=== PATIENT | male | born 1940 | race Caucasian/White ===

== ENCOUNTER → 2016-09-07 | Outpatient (CLI) | payer MEDICARE ==
[~2016-09-07] MED LIST: /MELO7TA PO; ASTE137S; AVAP300T PO; CALC600T7 PO; FERR325T3 PO; FISH1000 PO; INDA2.5T PO; LEVO500T PO; LORTTAB5 PO; METR500T10 PO; MULTCAP PO; OMEP40CA2 PO; ROPI0.25 PO; TRAZ50TA2 PO; TYLE325T5 PO; VITA100087 PO; VITA250L PO; VITA500C24 PO; VITAD1000T PO; ZOCO20TA PO; [UNRECOGNIZED DRUG - CODE] PO
--- NOTE | 2016-09-07 17:01 | REP ---
CERVICAL SPINE, EIGHT VIEWS: HISTORY: Spondylosis. There is no acute fracture or subluxation. The C3-4 through C6-7 intervertebral discs are decreased in height consistent with disc degeneration. Osteophytes are present on C3 through 7. There is narrowing of the C3 through 6 neural foraminal secondary to uncinate process hypertrophy. IMPRESSION: Degenerative change as described above. Signed by Carson Chaparro MD 09/07/2016 05:04 P
--- NOTE | 2016-09-07 17:35 | REP ---
LUMBAR SPINE, SEVEN VIEWS: HISTORY: Spondylosis. There is no acute fracture or subluxation. The lumbar intervertebral discs are decreased in height consistent with disc degeneration. Osteophytes are present throughout the lumbar spine. There is narrowing of the L4-5 and L5-S1 facet joints. IMPRESSION: Degenerative change as described above. Signed by Carson Chaparro MD 09/08/2016 08:47 A
== END ==
LOC: M RAD 15:43
PROVIDERS: ATTEND Neurological Surgery
DX: M50.30 Other cervical disc degeneration, unspecified cervical region (principal); M51.36 Other intervertebral disc degeneration, lumbar region; M47.892 Other spondylosis, cervical region; M47.816 Spondylosis without myelopathy or radiculopathy, lumbar region; M54.81 Occipital neuralgia; G56.20 Lesion of ulnar nerve, unspecified upper limb; M46.1 Sacroiliitis, not elsewhere classified; E66.9 Obesity, unspecified

== ENCOUNTER → 2016-09-14 | Outpatient (CLI) | payer MEDICARE ==
[2016-09-14 10:39] LABS: BLOOD UREA NITROGEN 12 MG/DL (7-18); CREATININE FOR GFR 0.96 MG/DL (0.70-1.30); GLOMERULAR FILTRATION RATE > 60.0 (>42)
== END ==
LOC: M LAB 09:46
PROVIDERS: ATTEND Neurological Surgery
DX: Z01.812 Encounter for preprocedural laboratory examination (principal)

== ENCOUNTER → 2016-09-16 | Outpatient (CLI) | payer MEDICARE ==
[~2016-09-16] MED LIST changes: +GASTROGRAFIN SOLUTION 30ML (Q9963) As Ordered ONE; +ISOVUE-370 76% 100ML VIAL (Q9967) As Ordered ONE
--- NOTE | 2016-09-16 13:30 | REP ---
CT ABDOMEN AND PELVIS WITH AND WITHOUT CONTRAST: TECHNIQUE: Axial noncontrast images through the abdomen followed by contrast-enhanced images through the abdomen and pelvis using 100 mL Isovue 370 intravenous contrast material, with coronal and sagittal reformations. There is fibrotic change with the visualized lung bases as well as a stable 7 mm nodular opacity in the left lower lobe compared to the prior CT of 10/14/2012. Liver demonstrates a subcentimeter hypodense nodule in the right lobe which is unchanged. Patient has had a cholecystectomy. There is no biliary dilatation. However, in the distal end of the common bile duct, there appear to be a few tiny calcific densities in the dependent portion probably representing tiny stones. Spleen, adrenals and pancreas, as well as kidneys are otherwise unremarkable. No renal calculi or ureteral calculi are seen. There is no hydroureteronephrosis. There is no evidence of bladder calculus. There are moderate atherosclerotic calcifications of the abdominal aorta without aneurysm. There is no adenopathy. There is no free air or free fluid. There is no bowel wall thickening. There is no evidence of appendicitis. There is extensive diverticulosis of the left colon and sigmoid colon without acute diverticulitis. There is no pelvic mass. There is a small left inguinal hernia containing fat. There are degenerative changes of the spine. IMPRESSION: Status post cholecystectomy. There are a tiny calcific densities in the dependent portion of the distal common bile duct compatible with tiny stones. Extensive sigmoid and left colonic diverticulosis. No acute abdominal or pelvic abnormality is identified. Small left inguinal hernia containing fat. Signed by Nixon Jesus MD 09/17/2016 04:37 P
== END ==
LOC: M RAD 10:39
PROVIDERS: ATTEND Neurological Surgery
DX: K80.50 Calculus of bile duct without cholangitis or cholecystitis without obstruction (principal); K57.30 Diverticulosis of large intestine without perforation or abscess without bleeding; K40.90 Unilateral inguinal hernia, without obstruction or gangrene, not specified as recurrent; Z90.49 Acquired absence of other specified parts of digestive tract
CPT/HCPCS: 74178; Q9963; Q9967

== ENCOUNTER → 2016-09-24 | Outpatient (CLI) | payer MEDICARE ==
[~2016-09-24] MED LIST changes: -GASTROGRAFIN SOLUTION 30ML (Q9963) As Ordered ONE; -ISOVUE-370 76% 100ML VIAL (Q9967) As Ordered ONE
== END ==
LOC: M SMT 07:59
PROVIDERS: ATTEND Urology
DX: Z12.5 Encounter for screening for malignant neoplasm of prostate (principal); Z80.42 Family history of malignant neoplasm of prostate
CPT/HCPCS: 36415; G0103

== ENCOUNTER → 2016-10-01 | Outpatient (REF) | payer MEDICARE | LOC: M SMT 13:02 | PROVIDERS: ATTEND Urology | DX: R39.15 Urgency of urination (principal) | CPT/HCPCS: 51798; 87086; G0463 ==

== ENCOUNTER → 2016-10-03 | Outpatient (CLI) | payer MEDICARE ==
--- NOTE | 2016-10-03 16:17 | REP ---
Clinical: Fatigue. Technique: PA and lateral. Comparison: 03/28/2013. Findings: Mediastinum and cardiac silhouette are within normal limits. Lung mckenzie demonstrate chronic changes with mild linear left basilar fibroatelectatic change. No effusion or pneumothorax. Skeletal structures demonstrate age-related degenerative changes. Impression: Chronic-appearing changes including suspected chronic linear fibroatelectatic change in the left base. Signed by Tano Paris MD 10/03/2016 04:08 P
[2016-10-03 20:28] LABS: BASO % 0.5 % (0.0-1.0); EOS # 0.2 K/mm3 (0.0-0.50); EOS % 3.1 % (0.0-3.0); LARGE UNSTAINED CELL # 0.1 K/mm3 (0.0-0.4); LARGE UNSTAINED CELL % 1.9 % (0.0-4.0); LYMPH % 40.3 % (24.0-44.0); MEAN CORPUSCULAR HEMOGLOBIN 30.8 pg (27.0-33.0); MEAN CORPUSCULAR HGB CONC 32.5 g/dl (32.0-36.5); MEAN CORPUSCULAR VOLUME 94.8 fl (80.0-96.0); MONO # 0.3 K/mm3 (0.0-0.8); MONO % 7.1 % (0.0-5.0); NEUTROPHILS # 2.3 K/mm3 (1.8-7.7); PLATELET COUNT, AUTOMATED 249 k/mm3 (150-450); RED CELL DISTRIBUTION WIDTH 12.8 % (11.5-14.5); WHITE BLOOD COUNT 4.8 K/mm3 (4.0-10.0)
[2016-10-03 20:39] LABS: ALBUMIN/GLOBULIN RATIO 1.18 (1.00-1.93); ALKALINE PHOSPHATASE 65 U/L (45-117); ALT/SGPT 45 U/L (12-78); ANION GAP 10 MEQ/L (8-16); AST/SGOT 30 U/L (15-37); BILIRUBIN,TOTAL 0.3 MG/DL (0.2-1.0); BLOOD UREA NITROGEN 14 MG/DL (7-18); CALCIUM LEVEL 8.6 MG/DL (8.8-10.2); CARBON DIOXIDE LEVEL 30 MEQ/L (21-32); CHLORIDE LEVEL 95 MEQ/L (98-107); CREATININE FOR GFR 0.89 MG/DL (0.70-1.30); GLOMERULAR FILTRATION RATE > 60.0 (>42); GLUCOSE, FASTING 144 MG/DL (83-110); POTASSIUM SERUM 3.7 MEQ/L (3.5-5.1); SODIUM LEVEL 135 MEQ/L (136-145); TOTAL PROTEIN 7.4 GM/DL (6.4-8.2)
[2016-10-05 09:43] LABS: CONTROL LINE MONO RF C INT CTR LINE PRESENT
[2016-10-07 00:06] LABS: Lyme Disease IgG/IgM Antibodie <0.91 ISR (0.00-0.90); Lyme Disease IgM Ab Quantitati <0.80 index (0.00-0.79)
== END ==
LOC: M ADAMS 15:39
PROVIDERS: ATTEND Physician Assistant Medical
DX: R53.83 Other fatigue (principal)

== ENCOUNTER → 2016-10-22 | Outpatient (CLI) | payer MEDICARE ==
--- NOTE | 2016-11-06 01:07 | ECWPNPC ---
PATIENT NAME: CHRISSIE SANFORD : 1940 GENDER: MALE VISIT DATE: 10/22/2016 DISCHARGE DATE: 10/22/16 1431 VISIT LOCKED DATE TIME: PHYSICIAN: ARABELLA YBARRA PHYSICIAN PAGER NO: [phone] RESOURCE: ARABELLA YBARRA REASON FOR APPOINTMENT 1. BACK HISTORY OF PRESENT ILLNESS NEW PATIENT CONSULT: WHEN DID YOUR PAIN FIRST START? . BRIEFLY DESCRIBE HOW YOUR PAIN STARTED? . HOW DOES YOUR PAIN CHANGE WITH TIME? . DOES YOUR PAIN AWAKEN YOU FROM SLEEP? . HOW MANY HOURS OF SLEEP DO YOU NORMALLY GET? . ANY DIAGNOSTIC TESTING? . FACILITY WHERE TESTS WERE DONE? ____. PAIN TREATMENT TREATMENT YES CANCER HAVE YOU EVER HAD ANY TYPE OF CANCER?NO NO. 76 Y/O MALE REFERRED BY DR RUSSELL FOR CHRONIC NECK AND LOW BACK PAIN.PAIN BEGAN 35 YEARS AGO AFTER SPLITTING WOOD.TRIALED THERAPY ADMINISTRATIVE ASSISTANT WHICH AGGREVATED PAIN.REPORTS INTERMITTENT LEFT UPPER ARM PAIN.HAVING ODD COLD SENSATION IN BILATERAL LEGS PAST FOUR YEARS THAT HAS GOTTEN WORSE PAST 6 MONTHS.IS BEING REFERRED TO VASCULAR SURGEON.REPORTING POOR SLEEP DUE TO LOW BACK PAIN.RATING LOW BACK PAIN 6/10.PAIN AGGREVATED IN NECK WITH CERTAIN MOVEMENTS IN NECK.DENIES BOWEL OR BLADDER INCONTINENCE.NO RECENT FEVER ,ILLNESS OR WEIGHT LOSS. PAIN SCREENING: PATIENT HAS A COMPLAINT OF ACUTE OR CHRONIC PAIN :YES FALL RISK SCREENING: SCREENING :NO FALLS IN THE PAST YEAR ÁLVAREZ INVENTORY: QUESTIONNAIRE ASSESSEDTBD SCORE VALUE CALCULATED TBD CURRENT MEDICATIONS TAKING FERROUS SULFATE 325 (65 FE) MG TABLET 1 TABLET ORALLY ONCE A DAY TAKING FISH OIL 1000 MG OTC 1 CAPSULE ORALLY ONCE A DAY TAKING MULTIVITAMINS OTC TABLET 1 TAB ORALLY ONCE A DAY TAKING VITAMIN D 1000 UNIT OTC 1 TABLET ORALLY ONCE A DAY TAKING SELENIUM 200 MCG OTC 1 TAB ORALLY ONCE A DAY TAKING CALCIUM 600 + D 600-200 MG-UNIT OTC 1 TABLET ORALLY ONCE A DAY TAKING VITAMIN C 500 MG OTC 1 TABLET ORALLY ONCE A DAY TAKING VITAMIN A 8000 UNIT OTC 1 CAPSULE ORALLY ONCE A DAY TAKING VITAMIN B COMPLEX 500 MG OTC 1 TABLET ORALLY ONCE A DAY TAKING VITAMIN B 12 1000 MG TABLET 1 TAB(S) ORALLY DAILY TAKING ASPIR-81 81 MG TABLET DELAYED RELEASE 1 TABLET ORALLY ONCE A DAY TAKING ZOCOR 20 MG TABLET 1 TABLET EVERY EVENING ORALLY ONCE A DAY TAKING TRAZODONE 50 50MG TABLET 1 TABLET ORAL BEDTIME TAKING INDAPAMIDE 2.5 MG TABLET TAKE ONE TABLET BY MOUTH EVERY MORNING TAKING REQUIP 0.25 MG TABLET TAKE TWO TABLETS BY MOUTH 1-3 HOURS BEFORE BEDTIME TAKING OMEPRAZOLE 40 MG CAPSULE DELAYED RELEASE 1 CAPSULE ORALLY TWICE A DAY TAKING AVAPRO 300 MG TABLET TAKE ONE TABLET BY MOUTH EVERY DAY ORALLY ONCE A DAY TAKING MYRBETRIQ 50 MG TABLET EXTENDED RELEASE 24 HOUR 1 TABLET ORALLY ONCE A DAY TAKING OXYBUTYNIN CHLORIDE ER 10 MG TABLET EXTENDED RELEASE 24 HOUR 1 TABLET ORALLY ONCE A DAY TAKING MELOXICAM 7.5 MG TABLET TAKE ONE TABLET BY MOUTH TWICE A DAY NEEDED MAXIMUM DAILY DOSE = 2 TABLETS NOT-TAKING TRAZODONE HCL 50 MG TABLET TAKE ONE TABLET BY MOUTH AT BEDTIME MEDICATION LIST REVIEWED AND RECONCILED WITH THE PATIENT PAST MEDICAL HISTORY (FREQUENT BLOOD DONOR--HGB TYPICALLY SL LOW) TYPE 2 DM-- DIETARY CONTROL HYPERLIPIDEMIA FIBROMYALGIA--DISABLED ALLERGIES BPH GENERALIZED OA NEGATIVE CATH NO CAD; NORMAL STRESS ECHO 12/23 (EF 60%) HYPERTENSION PULMONARY FIBROSIS COLON POLYP ADENOMATOUS COLONSCOPY 05/13,05/16,10/17,11/17, DDD/C-SPINE XRAY 02/13; SOS/NYSW INJECTIONS 2014, 2015 MILD ANEMIA FROM Q 2 MONTH BLOOD DONATIONS BILATERAL SHOULDER TENDONITIS/ARTHIRITIS VENTRAL HERNIA ERECTILE DYSFUNCTION GERD/SCHATZKI'S RING DEPRESSION XEROSTOMIA (? FROM [facility]) RESTLESS LEG SYNDROME ZOEY ON CPAP PER PULMONARY HAD NCS DONE AT [place] [facility], NO RECORDS SENT ALLERGIES CYTOTEC: DIARRHEA: SIDE EFFECTS ATENOLOL: FATIGUE: SIDE EFFECTS VIAGARA: HEADACHES: SIDE EFFECTS SOCIAL HISTORY GENERAL: PAIN CLINIC PFS, CLERGY, PUBLIC HEALTH REFERRALS CLERGY REFERRAL NEEDED?NO WAS THE PROVIDER NOTIFIED OF ANY PERTINENT INFO?NO PFS REFERRAL NEEDED?NO PUBLIC HEALTH REFERRAL NEEDED?NO PATIENT: ____. REVIEW OF SYSTEMS CONSTITUTIONAL: RECENT ILLNESS DENIES . ANY CHANGE IN YOUR MEDICAL CONDITION? NO . CHILLS NO . FEVER NO, DENIES . WEIGHT LOSS DENIES . INFECTION: DO YOU HAVE NEW INFECTIONS? NO . DO YOU HAVE HISTORY OF MRSA? NO . MUSCULOSKELETAL: ANY NEW PATTERNS OF PAIN OR NUMBNESS? NO . SYTEMIC LUPUS NO . JOINT PAIN DENIES . JOINT STIFFNESS DENIES . GASTROENTEROLOGY: BOWEL INCONTINENCE DENIES . ANY NEW CHANGE IN BOWEL CONTROL? NO . BARRETTS ESOPHAGUS NO . CIRRHOSIS NO . HEPATITIS NO . LIVER FAILURE NO . ACID REFLUX NO . BLOOD IN STOOL DENIES . UNEXPLAINED WEIGHT LOSS NO . GENITOURINARY: ANY NEW CHANGE IN BLADDER CONTROL? NO . IS THERE A CHANCE YOU COULD BE ? NO . HEMATOLOGY/LYMPH: DENIES . BLEEDING DISORDER DENIES . DO YOU TAKE ANY BLOOD THINNERS? (FOR EXAMPLE- COUMADIN, PLAVIX, AGGRENOX, PLATEL, PRADAXA, OR XARELTO) NO . WHEN WAS YOUR LAST DOSE? DATE: TIME: . LOW PLATELET COUNT NO . SICKLE CELL DISEASE NO . VON WILLIEBRANDS NO . FACTOR V LEIDEN NO . THALLASEMIA NO . ANEMIA NO . EASY BRUISING NO . NEUROLOGY: HAVE YOU FALLEN IN THE PAST 6 MONTHS? NO . ANY NEW EXTREMITY NUMBNESS OR WEAKNESS? NO . HEAD INJURY NO . DEMENTIA NO . CEREBRAL PALSY NO . MULTIPLE SCLEROSIS NO . DIZZINESS NO . HEADACHE NO, DENIES . SEIZURES DENIES . STROKES NO . VERTIGO NO . CARDIOLOGY: DO YOU HAVE A PACEMAKER OR DEFIBRILLATOR? NO . ANGINA NO . HEART ATTACK NO . HEART SURGERY NO . CONGESTIVE HEART FAILURE/FLUID OVERLOAD NO . CHEST PAIN NO, DENIES . HIGH BLOOD PRESSURE NO . IRREGULAR HEART BEAT NO . SHORTNESS OF BREATH DENIES . RESPIRATORY: HAVE YOU BEEN SICK IN THE PAST WEEK? NO . FEVER NO . FLU LIKE SYMPTOMS? NO . CPAP NO . BYPAP NO . ASTHMA NO . EMPHYSEMA NO . CHRONIC LUNG DISEASES NO . SHORTNESS OF BREATH ON EXERTION NO . DO YOU USE ANY TYPE OF TOBACCO (SMOKE, SMOKELESS, CHEW)? NO . COUGH NO, DENIES . SHORTNESS OF BREATH DENIES . SNORING NO . INTEGUMENTARY: DO YOU HAVE ANY RASHES OR OPEN SORES? NO . ALLERGIC/IMMUNO: ARE YOU ALLERGIC TO SHELLFISH OR IV DYE? NO . ANY NEW ALLERGIES? NO . PSYCHIATRIC: DO YOU HAVE THOUGHTS OF HURTING YOURSELF OR SOMEONE ELSE? NO . ARE YOU ABUSED, NEGLECTED, OR IN AN UNSAFE ENVIRONMENT? NO . ENDOCRINOLOGY: THYROID DISEASE DENIES . ARE YOU DIABETIC? NO . DIABETES DENIES . THYROID DISORDER NO . OTHER: DO YOU NEED ANY PRESCRIPTIONS? NO . IF YES, PLEASE LIST: ____ . ANY NEW PROBLEMS WITH YOUR MEDICATIONS? NO . WHEN DID YOU LAST EAT? ____ . WHEN DID YOU LAST DRINK? ____ . WHAT DID YOU LAST DRINK? ____ . NAME OF PERSON DRIVING YOU HOME? ____ . DO YOU HAVE ANY OTHER QUESTIONS OR CONCERNS NO . HEENT: CHANGE IN VISION DENIES . LOSS OF HEARING DENIES . TROUBLE SWALLOWING DENIES . PSYCHOLOGY: ANXIETY DENIES . DEPRESSION DENIES . UROLOGY: URINARY INCONTINENCE DENIES . BLOOD IN URINE DENIES . REVIEWED BY: PROVIDER: ARABELLA PRICE . VITAL SIGNS WT 216 LBS, HT 69 IN, BMI 31.89 INDEX, BP 177/79 MM HG, HR 73 /MIN, RR 18 /MIN, TEMP 98.5 F, OXYGEN SAT % 97, NA INITIALS AW 1311. EXAMINATION GENERAL EXAMINATION: HEENT:HEAD:, NORMOCEPHALIC, EYES:, EYES NORMAL, NOSE:, NOSE CLEAR, THROAT: NORMAL. LUNGS:LUNG SOUNDS ARE CLEAR. HEART:HEART RATE REGULAR. ABDOMEN:SOFT AND NOT TENDER, NON-DISTENDED. MUSCULOSKELETAL:*. LUMBAR SACRAL SPINEMUSCLE STRENGTH TESTING 5/5 BILATERAL, PALPATION: NEGATIVE FOR PAIN OVER L/S SPINE. NEGATIVE FOR PAIN OVER L/S PARSPINALS. THORACIC SPINENEGATIVE FOR PAIN WITH PALPATION OF THORACIC SPINE. NEGATIVE FOR PAIN WITH PALPATION OF THORACIC PARASPINAL. CERVICALNEGATIVE FOR PAIN WITH PALPATION OF CERVICAL SPINE. POSITIVE FOR PAIN WITH PALPATION OF CERVICAL FACETS BILATERALLY. NEGATIVE FOR PAIN WITH PALPATION OF TRAPEZIUS BILAT.. SKIN:NORMAL, NO RASH. NEUROLOGIC EXAM:ALERT AND ORIENTED X 3, DTRS 1-2+ IN ALL 4 EXTREMITIES, DENIES UPPER EXTREMETIES SENSORY LOSS, DENIES LOWER EXTREMETIES SENSORY LOSS. DIAGNOSTIC:MRI L/S AND [id number]. 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 OTHERS CLINICAL NOTES: ISTOP REGISTRY REVIEWED. PROCEDURE CODES FA211 ESTABILISHED PATIENT [facility] CHARGE G8730 PAIN ASSESS POS TOOL F/U PLAN DOC G8427 DOC MEDS VERIFIED W/PT OR RE DISPOSITION & COMMUNICATION FOLLOW UP 2WK POST (REASON: BILAT. C4/5-C5/6 THERAPEUTIC FACET BLOCK) ELECTRONICALLY SIGNED BY DEE MEDRANO ON 11/05/2016 AT 01:08 PM EDT DISCLAIMER : THIS IS A VISIT SUMMARY EXTRACTED FROM THE [facility] CHART. IT IS NOT A COPY OF THE [facility] PROGRESS NOTE. MTDD
== END ==
LOC: M PAIN 13:20
PROVIDERS: ATTEND Nurse Practitioner Family
DX: G89.29 Other chronic pain (principal); M43.02 Spondylolysis, cervical region; M48.06 Spinal stenosis, lumbar region; E11.9 Type 2 diabetes mellitus without complications; E78.5 Hyperlipidemia, unspecified; M79.7 Fibromyalgia; M15.0 Primary generalized (osteo)arthritis; I10 Essential (primary) hypertension; K21.9 Gastro-esophageal reflux disease without esophagitis; F32.9 Major depressive disorder, single episode, unspecified; G25.81 Restless legs syndrome; G47.33 Obstructive sleep apnea (adult) (pediatric); Z88.8 Allergy status to other drugs, medicaments and biological substances; Z79.82 Long term (current) use of aspirin; Z79.899 Other long term (current) drug therapy

== ENCOUNTER → 2016-10-29 | Outpatient (REF) | payer MEDICARE ==
[2016-10-29 13:01] LABS: ANION GAP 8 MEQ/L (8-16); BLOOD UREA NITROGEN 18 MG/DL (7-18); CALCIUM LEVEL 9.5 MG/DL (8.8-10.2); CARBON DIOXIDE LEVEL 32 MEQ/L (21-32); CHLORIDE LEVEL 98 MEQ/L (98-107); CREATININE FOR GFR 0.89 MG/DL (0.70-1.30); GLOMERULAR FILTRATION RATE > 60.0 (>42); GLUCOSE, FASTING 113 MG/DL (83-110); SODIUM LEVEL 138 MEQ/L (136-145)
== END ==
LOC: M SFHCADAM 07:59
PROVIDERS: ATTEND Family Medicine
DX: E11.9 Type 2 diabetes mellitus without complications (principal)

== ENCOUNTER → 2016-11-11 | Outpatient (CLI) | payer MEDICARE ==
[~2016-11-11] MED LIST changes: +BUPIVACAINE HCL 0.25% 30 ML VIAL As Ordered ONE; +ISOVUE-M 300 61% 15ML VIAL (Q9967) As Ordered ONE; +LIDOCAINE 1% SDV INJ 30 ML VIAL As Ordered ONE; +TRIAMCINOLONE ACETONIDE SUSP 40 MG/ML VIAL (J3301) As Ordered ONE; +diazePAM 5 MG TAB As Ordered ONE; +oxyCODONE 5MG TAB As Ordered ONE
--- NOTE | 2016-11-11 15:42 | REP ---
FACET BLOCK: The images were reviewed with Dr. Jesus. The patient has a history of neck pain. The portable C-arm was provided in the OR for Dr. Rojas for fluoroscopy guidance. One intraoperative fluoroscopic spot film was obtained for needle placement verification for bilateral cervical facet injection. The film is on the PACs system and is available for review. 9 seconds of fluoroscopic time was utilized for this procedure. Reviewed by JANUARY Medellin 11/11/2016 04:16 PEdited and Signed by Nixon Jesus MD 11/11/2016 04:42 P
--- NOTE | 2016-11-15 23:55 | ECWPNPC ---
PATIENT NAME: CHRISSIE SANFORD : 1940 GENDER: MALE VISIT DATE: 11/11/2016 DISCHARGE DATE: 11/11/16 1105 VISIT LOCKED DATE TIME: PHYSICIAN: CONSTANTINE YANCEY PHYSICIAN PAGER NO: [phone] RESOURCE: CONSTANTINE YANCEY REASON FOR APPOINTMENT 1. THERAPEUTIC FACET HISTORY OF PRESENT ILLNESS HISTORY OF PRESENT ILLNESS: PAIN THE PATIENT DESCRIBES THE PAIN... FALL RISK SCREENING: SCREENING :NO FALLS IN THE PAST YEAR CURRENT MEDICATIONS TAKING FERROUS SULFATE 325 (65 FE) MG TABLET 1 TABLET ORALLY ONCE A DAY, NOTES: 11/10/16699 TAKING FISH OIL 1000 MG OTC 1 CAPSULE ORALLY ONCE A DAY, NOTES: 11/10/16699 TAKING MULTIVITAMINS OTC TABLET 1 TAB ORALLY ONCE A DAY, NOTES: 11/10/16699 TAKING VITAMIN D 1000 UNIT OTC 1 TABLET ORALLY ONCE A DAY, NOTES: 11/10/161699 TAKING SELENIUM 200 MCG OTC 1 TAB ORALLY ONCE A DAY, NOTES: 11/10/161199 TAKING CALCIUM 600 + D 600-200 MG-UNIT OTC 1 TABLET ORALLY ONCE A DAY, NOTES: 11/10/16699 TAKING VITAMIN C 500 MG OTC 1 TABLET ORALLY ONCE A DAY, NOTES: 11/10/16699 TAKING VITAMIN A 8000 UNIT OTC 1 CAPSULE ORALLY ONCE A DAY, NOTES: 11/10/161199 TAKING VITAMIN B COMPLEX 500 MG OTC 1 TABLET ORALLY ONCE A DAY, NOTES: 11/10/161199 TAKING VITAMIN B 12 1000 MG TABLET 1 TAB(S) ORALLY DAILY, NOTES: 11/10/161199 TAKING ASPIR-81 81 MG TABLET DELAYED RELEASE 1 TABLET ORALLY ONCE A DAY, NOTES: 11/10/16799 TAKING ZOCOR 20 MG TABLET 1 TABLET EVERY EVENING ORALLY ONCE A DAY, NOTES: 11/10/16799 TAKING REQUIP 0.25 MG TABLET TAKE TWO TABLETS BY MOUTH 1-3 HOURS BEFORE BEDTIME , NOTES: 11/10/161999 TAKING MYRBETRIQ 50 MG TABLET EXTENDED RELEASE 24 HOUR 1 TABLET ORALLY ONCE A DAY, NOTES: 11/10/161699 TAKING OMEPRAZOLE 40 MG CAPSULE DELAYED RELEASE 1 CAPSULE ORALLY TWICE A DAY, NOTES: 11/10/161999 TAKING AVAPRO 300 MG TABLET TAKE ONE TABLET BY MOUTH EVERY DAY ORALLY ONCE A DAY, NOTES: 5/2/17 1700 TAKING INDAPAMIDE 2.5 MG TABLET TAKE ONE TABLET BY MOUTH EVERY MORNING , NOTES: 11/10/16 1200 TAKING MELOXICAM 7.5 MG TABLET TAKE ONE TABLET BY MOUTH TWICE A DAY NEEDED MAXIMUM DAILY DOSE = 2 TABLETS , NOTES: 11/10/16 2000 TAKING OXYBUTYNIN CHLORIDE ER 10 MG TABLET EXTENDED RELEASE 24 HOUR 1 TABLET ORALLY ONCE A DAY, NOTES: 11/10/16 1700 TAKING TRAZODONE 50 50MG TABLET 1 TABLET ORAL BEDTIME, NOTES: 11/10/16 1900 NOT-TAKING TRAZODONE HCL 50 MG TABLET TAKE ONE TABLET BY MOUTH AT BEDTIME MEDICATION LIST REVIEWED AND RECONCILED WITH THE PATIENT PAST MEDICAL HISTORY TYPE 2 DM-- DIETARY CONTROL HYPERLIPIDEMIA FIBROMYALGIA--DISABLED ALLERGIES BPH GENERALIZED OA NEGATIVE CATH NO CAD; NORMAL STRESS ECHO 12/23 (EF 60%) HYPERTENSION PULMONARY FIBROSIS COLON POLYP ADENOMATOUS COLONSCOPY 05/13,05/16,10/17,11/17, DDD/C-SPINE XRAY 02/13; HAD MRIS DONE AT [facility] (NO [facility]), DX WITH CERVICAL AND LUMBAR SPONDYLOSIS; SOS/NYSW INJECTIONS 2014, 2016; [facility] 2016 MILD ANEMIA FROM Q 2 MONTH BLOOD DONATIONS BILATERAL SHOULDER TENDONITIS/ARTHIRITIS VENTRAL HERNIA ERECTILE DYSFUNCTION GERD/SCHATZKI'S RING DEPRESSION XEROSTOMIA (? FROM [facility]) RESTLESS LEG SYNDROME ZOEY ON CPAP PER PULMONARY HAD NCS DONE AT [facility], NO RECORDS SENT VASC SX EVALUATION 04/26 DR SHULTZ--NORMAL LOWER EXT CIRCULATION ALLERGIES N.K.D.A. REVIEW OF SYSTEMS CONSTITUTIONAL: ANY CHANGE IN YOUR MEDICAL CONDITION? NO . CHILLS NO . FEVER NO . INFECTION: DO YOU HAVE NEW INFECTIONS? NO . DO YOU HAVE HISTORY OF MRSA? NO . MUSCULOSKELETAL: ANY NEW PATTERNS OF PAIN OR NUMBNESS? NO . GASTROENTEROLOGY: ANY NEW CHANGE IN BOWEL CONTROL? NO . GENITOURINARY: ANY NEW CHANGE IN BLADDER CONTROL? NO . IS THERE A CHANCE YOU COULD BE ? NO . HEMATOLOGY/LYMPH: DO YOU TAKE ANY BLOOD THINNERS? (FOR EXAMPLE- COUMADIN, PLAVIX, AGGRENOX, PLATEL, PRADAXA, OR XARELTO) NO . WHEN WAS YOUR LAST DOSE? DATE: TIME: . NEUROLOGY: HAVE YOU FALLEN IN THE PAST 6 MONTHS? NO . ANY NEW EXTREMITY NUMBNESS OR WEAKNESS? NO . CARDIOLOGY: DO YOU HAVE A PACEMAKER OR DEFIBRILLATOR? NO . RESPIRATORY: HAVE YOU BEEN SICK IN THE PAST WEEK? NO . FEVER NO . FLU LIKE SYMPTOMS? NO . COUGH NO . INTEGUMENTARY: DO YOU HAVE ANY RASHES OR OPEN SORES? NO . ALLERGIC/IMMUNO: ARE YOU ALLERGIC TO SHELLFISH OR IV DYE? NO . ANY NEW ALLERGIES? NO . PSYCHIATRIC: DO YOU HAVE THOUGHTS OF HURTING YOURSELF OR SOMEONE ELSE? NO . ARE YOU ABUSED, NEGLECTED, OR IN AN UNSAFE ENVIRONMENT? NO . ENDOCRINOLOGY: ARE YOU DIABETIC? DIET CONTROLLED . OTHER: DO YOU NEED ANY PRESCRIPTIONS? NO . IF YES, PLEASE LIST: ____ . ANY NEW PROBLEMS WITH YOUR MEDICATIONS? NO . WHEN DID YOU LAST EAT? 11/10/16 1730 . WHEN DID YOU LAST DRINK? 11/10/16 1900 . WHAT DID YOU LAST DRINK? WATER . NAME OF PERSON DRIVING YOU HOME? -DEANNA . DO YOU HAVE ANY OTHER QUESTIONS OR CONCERNS NO . REVIEWED BY: PROVIDER: . VITAL SIGNS WT 210 LBS, HT 69 IN, BMI 31.01 INDEX, BP 166/72 MM HG, HR 67 /MIN, RR 18 /MIN, TEMP 97.5 F, OXYGEN SAT % 98, NA INITIALS AW 0850, REVIEWED BY: AD. ASSESSMENTS SPONDYLOSIS WITHOUT MYELOPATHY OR RADICULOPATHY, CERVICAL REGION - M47.812 (PRIMARY) PROCEDURES PN CERVICAL FACET BLOCK LOW BILATERAL CERVICAL PRE PROCEDURE DIAGNOSIS CERVICAL SPONDYLOSIS POST PROCEDURE DIAGNOSIS CERVICAL SPONDYLOSIS PROCEDURE BILATERAL C4-C5 AND BILATERAL C5-C6 CERVICAL FACET BLOCK SURGEON DR. CONSTANTINE YANCEY REGISTERED ASSOCIATE NONE ANESTHESIA LOCAL PRE PROCEDURE NOTE THE PATIENT HAS HISTORY OF CHRONIC CERVICAL PAIN. I EVALUATE THE PATIENT AND REVIEWED THE CHART. I WENT OVER THE RISKS, ALTERNATIVES, AND BENEFITS ASSOCIATED WITH THIS PROCEDURE. THE PATIENT WOULD LIKE TO PROCEED AND GIVE CONSENT TO PERFORMED THE PROCEDURE. THE PATIENT DENIES UNEXPLAINABLE WEIGHT LOSS, FEVER, CHILLS, OR NEW CHANGES IN URINARY OR BOWEL CONTROL. DESCRIPTION OF PROCEDURE THE PATIENT WAS BROUGHT TO THE PROCEDURE ROOM AND PLACED IN THE PRONE POSITION. THE CERVICOTHORACIC AREA WAS CLEANED WITH CHLORAPREP SOLUTION AND DRAPED ASEPTICALLY. THE PROCEDURE WAS DONE UNDER STERILE CONDITIONS. I CHECKED LATERALITY AND THE LEVEL WHERE THE PROCEDURE WAS GOING TO BE PERFORMED WITH THE PATIENT AND THE SUPPORTING STAFF AT THE MOMENT OF THE TIME OUT IN THE PROCEDURE ROOM. UNDER FLUOROSCOPIC GUIDANCE, TARGET POINT WAS SELECTED AT THE RIGHT AND EFT C4-C5 AND RIGHT AND LEFT C5-C6 CERVICAL FACET JOINT. TARGET POINTS WERE SELECTED AFTER LATERAL ROTATION AND TILT OF THE MAGNIFIER OF THE C-ARM. LIDOCAINE 0.5% WAS USED TO NUMB THE SKIN AND THE SUBCUTANEOUS TISSUE BELOW IT. SPINAL NEEDLES, 22-GAUGE, WERE ADVANCED UNDER FLUOROSCOPIC GUIDANCE AND FOLLOWING PATIENT FEEDBACK UNTIL THE TARGETS WERE TOUCHED. THE POSITION OF THE NEEDLES WAS VERIFIED WITH AP AND LATERAL VIEWS. AFTER PROPER POSITION OF THE NEEDLES WAS ACHIEVED, ISOVUE M DYE 30, 0.1 ML WAS INJECTED SHOWING SPREAD OF THE DYE. THEN A SOLUTION OF 0.9 ML OF BUPIVACAINE 0.125% AND KENALOG 10 MG WAS INJECTED AT EACH SITE. THERE WAS NO EVIDENCE OF BLOOD, PARESTHESIA OR CEREBROSPINAL FLUID DURING THE PROCEDURE. THE PATIENT WAS SENT TO THE RECOVERY ROOM. THE PATIENT WAS MOVING THE EXTREMITIES AND DOING WELL. THERE WAS NO COMPLICATION DURING THE PROCEDURE. FLUOROSCOPY TIME WAS 9 SECONDS POST PROCEDURE NOTE THE PATIENT WILL BE SEEN IN A FOLLOW UP IN THE NEXT FEW WEEKS. INSTRUCTIONS WERE GIVEN, QUESTIONS WERE ANSWERED, AND THE PATIENT EXPRESSED UNDERSTANDING AND AGREES WITH THE PLAN. I, JAZMIN ANDRADE, DOCUMENTED THE ABOVE INFORMATION ACTING A SCRIBE FOR DR. YANCEY. I HAVE REVIEWED THE ABOVE DOCUMENT, WRITTEN BY JAZMIN ESQUIVEL AND I VERIFY THAT IT IS ACCURATE DIAGNOSTIC IMAGING [facility] FACET BLOCK (PAIN)[id number] PROCEDURE CODES 82151 INJ PARAVERT F JNT C/T 1 LEV 80169 INJ PARAVERT F JNT C/T 2 LEV 6045F RADXPS IN END [id number] PXD DISPOSITION & COMMUNICATION FOLLOW UP 3 WEEKS ELECTRONICALLY SIGNED BY CONSTANTINE YANCEY MD ON 11/15/2016 AT 04:58 PM EDT DISCLAIMER : THIS IS A VISIT SUMMARY EXTRACTED FROM THE [employer] CHART. IT IS NOT A COPY OF THE [employer] PROGRESS NOTE. MTDD
== END ==
LOC: M PAIN 08:40
PROVIDERS: ATTEND Anesthesiology
DX: G89.29 Other chronic pain (principal); M47.812 Spondylosis without myelopathy or radiculopathy, cervical region; E11.9 Type 2 diabetes mellitus without complications; E78.5 Hyperlipidemia, unspecified; M79.7 Fibromyalgia; M15.0 Primary generalized (osteo)arthritis; I10 Essential (primary) hypertension; J84.10 Pulmonary fibrosis, unspecified; K43.9 Ventral hernia without obstruction or gangrene; K21.9 Gastro-esophageal reflux disease without esophagitis; F32.9 Major depressive disorder, single episode, unspecified; G25.81 Restless legs syndrome; G47.33 Obstructive sleep apnea (adult) (pediatric); Z79.82 Long term (current) use of aspirin; Z79.891 Long term (current) use of opiate analgesic; Z79.899 Other long term (current) drug therapy
CPT/HCPCS: 64490; 64491; J3301; Q9967

== ENCOUNTER → 2016-11-25 | Outpatient (CLI) | payer MEDICARE ==
[~2016-11-25] MED LIST changes: -BUPIVACAINE HCL 0.25% 30 ML VIAL As Ordered ONE; -ISOVUE-M 300 61% 15ML VIAL (Q9967) As Ordered ONE; -LIDOCAINE 1% SDV INJ 30 ML VIAL As Ordered ONE; -TRIAMCINOLONE ACETONIDE SUSP 40 MG/ML VIAL (J3301) As Ordered ONE; -diazePAM 5 MG TAB As Ordered ONE; -oxyCODONE 5MG TAB As Ordered ONE
--- NOTE | 2016-12-16 02:55 | ECWPNPC ---
PATIENT NAME: CHRISSIE SANFORD : 1940 GENDER: MALE VISIT DATE: 11/25/2016 DISCHARGE DATE: 11/25/16 1001 VISIT LOCKED DATE TIME: PHYSICIAN: ARABELLA YBARRA PHYSICIAN PAGER NO: [phone] RESOURCE: ARABELLA YBARRA HISTORY OF PRESENT ILLNESS HISTORY OF PRESENT ILLNESS: HERE FOR POST PROCEDURE FOLLOW UP.HAD BILATERAL CERVICAL THERAPEUTIC FACET BLOCK ON 11-11-16.REPORTING >75% IMPROVEMENT IN PAIN THAT CONTINUES TODAY.RATING NECK PAIN 0/10.CHIEF AREA OF PAIN IS LOW BACK. PAIN THE PATIENT DESCRIBES THE PAIN... FALL RISK SCREENING: SCREENING :NO FALLS IN THE PAST YEAR CURRENT MEDICATIONS TAKING FERROUS SULFATE 325 (65 FE) MG TABLET 1 TABLET ORALLY ONCE A DAY TAKING FISH OIL 1000 MG OTC 1 CAPSULE ORALLY ONCE A DAY TAKING MULTIVITAMINS OTC TABLET 1 TAB ORALLY ONCE A DAY TAKING VITAMIN D 1000 UNIT OTC 1 TABLET ORALLY ONCE A DAY TAKING SELENIUM 200 MCG OTC 1 TAB ORALLY ONCE A DAY TAKING CALCIUM 600 + D 600-200 MG-UNIT OTC 1 TABLET ORALLY ONCE A DAY TAKING VITAMIN C 500 MG OTC 1 TABLET ORALLY ONCE A DAY TAKING VITAMIN A 8000 UNIT OTC 1 CAPSULE ORALLY ONCE A DAY TAKING VITAMIN B COMPLEX 500 MG OTC 1 TABLET ORALLY ONCE A DAY TAKING VITAMIN B 12 1000 MG TABLET 1 TAB(S) ORALLY DAILY TAKING ASPIR-81 81 MG TABLET DELAYED RELEASE 1 TABLET ORALLY ONCE A DAY TAKING ZOCOR 20 MG TABLET 1 TABLET EVERY EVENING ORALLY ONCE A DAY TAKING REQUIP 0.25 MG TABLET TAKE TWO TABLETS BY MOUTH 1-3 HOURS BEFORE BEDTIME TAKING OMEPRAZOLE 40 MG CAPSULE DELAYED RELEASE 1 CAPSULE ORALLY TWICE A DAY TAKING AVAPRO 300 MG TABLET TAKE ONE TABLET BY MOUTH EVERY DAY ORALLY ONCE A DAY TAKING INDAPAMIDE 2.5 MG TABLET TAKE ONE TABLET BY MOUTH EVERY MORNING TAKING MELOXICAM 7.5 MG TABLET TAKE ONE TABLET BY MOUTH TWICE A DAY NEEDED MAXIMUM DAILY DOSE = 2 TABLETS TAKING OXYBUTYNIN CHLORIDE ER 10 MG TABLET EXTENDED RELEASE 24 HOUR 1 TABLET ORALLY ONCE A DAY, NOTES: 11/10/161699 TAKING TRAZODONE 50 50MG TABLET 1 TABLET ORAL BEDTIME NOT-TAKING MYRBETRIQ 50 MG TABLET EXTENDED RELEASE 24 HOUR 1 TABLET ORALLY ONCE A DAY, NOTES: 11/10/161699 NOT-TAKING TRAZODONE HCL 50 MG TABLET TAKE ONE TABLET BY MOUTH AT BEDTIME MEDICATION LIST REVIEWED AND RECONCILED WITH THE PATIENT PAST MEDICAL HISTORY TYPE 2 DM-- DIETARY CONTROL HYPERLIPIDEMIA FIBROMYALGIA--DISABLED ALLERGIES BPH GENERALIZED OA NEGATIVE CATH NO CAD; NORMAL STRESS ECHO 12/23 (EF 60%) HYPERTENSION PULMONARY FIBROSIS COLON POLYP ADENOMATOUS COLONSCOPY 05/13,05/16,10/17,11/17, DDD/C-SPINE XRAY 02/13; HAD MRIS DONE AT [facility] (NO [facility]), DX WITH CERVICAL AND LUMBAR SPONDYLOSIS; SOS/NYSW INJECTIONS 2014, 2015; [facility] 2016 MILD ANEMIA FROM Q 2 MONTH BLOOD DONATIONS BILATERAL SHOULDER TENDONITIS/ARTHIRITIS VENTRAL HERNIA ERECTILE DYSFUNCTION GERD/SCHATZKI'S RING DEPRESSION XEROSTOMIA (? FROM [facility]) RESTLESS LEG SYNDROME ZOEY ON CPAP PER PULMONARY HAD NCS DONE AT [facility], NO RECORDS SENT VASC SX EVALUATION 04/26 DR SHULTZ--NORMAL LOWER EXT CIRCULATION REVIEW OF SYSTEMS CONSTITUTIONAL: ANY CHANGE IN YOUR MEDICAL CONDITION? NO . CHILLS NO . FEVER NO . INFECTION: DO YOU HAVE NEW INFECTIONS? NO . DO YOU HAVE HISTORY OF MRSA? NO . MUSCULOSKELETAL: ANY NEW PATTERNS OF PAIN OR NUMBNESS? NO . GASTROENTEROLOGY: ANY NEW CHANGE IN BOWEL CONTROL? NO . GENITOURINARY: ANY NEW CHANGE IN BLADDER CONTROL? NO . IS THERE A CHANCE YOU COULD BE ? NO . HEMATOLOGY/LYMPH: DO YOU TAKE ANY BLOOD THINNERS? (FOR EXAMPLE- COUMADIN, PLAVIX, AGGRENOX, PLATEL, PRADAXA, OR XARELTO) NO . WHEN WAS YOUR LAST DOSE? DATE: TIME: . NEUROLOGY: HAVE YOU FALLEN IN THE PAST 6 MONTHS? NO . ANY NEW EXTREMITY NUMBNESS OR WEAKNESS? NO . CARDIOLOGY: DO YOU HAVE A PACEMAKER OR DEFIBRILLATOR? NO . RESPIRATORY: HAVE YOU BEEN SICK IN THE PAST WEEK? NO . FEVER NO . FLU LIKE SYMPTOMS? NO . COUGH NO . INTEGUMENTARY: DO YOU HAVE ANY RASHES OR OPEN SORES? NO . ALLERGIC/IMMUNO: ARE YOU ALLERGIC TO SHELLFISH OR IV DYE? NO . ANY NEW ALLERGIES? NO . PSYCHIATRIC: DO YOU HAVE THOUGHTS OF HURTING YOURSELF OR SOMEONE ELSE? NO . ARE YOU ABUSED, NEGLECTED, OR IN AN UNSAFE ENVIRONMENT? NO . ENDOCRINOLOGY: ARE YOU DIABETIC? NO . OTHER: DO YOU NEED ANY PRESCRIPTIONS? NO . IF YES, PLEASE LIST: ____ . ANY NEW PROBLEMS WITH YOUR MEDICATIONS? NO . WHEN DID YOU LAST EAT? ____ . WHEN DID YOU LAST DRINK? ____ . WHAT DID YOU LAST DRINK? ____ . NAME OF PERSON DRIVING YOU HOME? ____ . DO YOU HAVE ANY OTHER QUESTIONS OR CONCERNS NO . REVIEWED BY: PROVIDER: ARABELLA PRICE . VITAL SIGNS WT 214 LBS, HT 69 IN, BMI 31.60 INDEX, BP 181/88 MM HG, HR 68 /MIN, RR 16 /MIN, TEMP 98 F, BLOOD GLUCOSE LEVEL 99, SAFE IN ENV? (Y/N) YES, REVIEWED BY: KG. EXAMINATION GENERAL EXAMINATION: GENERAL APPEARANCE:NO ACUTE DISTRESS, WELL NOURISHED AND HYDRATED. PSYCHAPPROPRIATE MOOD AND AFFECT . FACE:UNREMARKABLE. MUSCULOSKELETAL:NORMAL RANGE OF MOTION. SKIN:NORMAL, NO RASH. 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 PROCEDURE CODES G8730 PAIN ASSESS POS TOOL F/U PLAN DOC G8427 DOC MEDS VERIFIED W/PT OR RE DISPOSITION & COMMUNICATION FOLLOW UP NEXT AVAILABLE W DR YANCEY TO DISCUSS PROCEDURE W IV SEDATION (REASON: I AM GOING TO REQUEST A THERAPEUTIC LUMBAR FACET BLOCK, I AM GOING TO REQUEST A THERAPEUTIC LUMBAR F) ELECTRONICALLY SIGNED BY DEE MEDRANO ON 12/15/2016 AT 09:02 AM EDT DISCLAIMER : THIS IS A VISIT SUMMARY EXTRACTED FROM THE [employer] CHART. IT IS NOT A COPY OF THE [employer] PROGRESS NOTE. MTDD
== END ==
LOC: M PAIN 09:00
PROVIDERS: ATTEND Nurse Practitioner Family
DX: G89.29 Other chronic pain (principal); M43.02 Spondylolysis, cervical region; M48.06 Spinal stenosis, lumbar region; M79.7 Fibromyalgia; I10 Essential (primary) hypertension; E11.9 Type 2 diabetes mellitus without complications; E78.2 Mixed hyperlipidemia; J30.9 Allergic rhinitis, unspecified; D64.9 Anemia, unspecified; K21.0 Gastro-esophageal reflux disease with esophagitis; F32.9 Major depressive disorder, single episode, unspecified; G25.81 Restless legs syndrome; R39.15 Urgency of urination; M19.011 Primary osteoarthritis, right shoulder; M19.012 Primary osteoarthritis, left shoulder; G47.33 Obstructive sleep apnea (adult) (pediatric); Z79.82 Long term (current) use of aspirin; Z79.891 Long term (current) use of opiate analgesic; Z79.899 Other long term (current) drug therapy

== ENCOUNTER → 2016-12-11 | Outpatient (CLI) | payer MEDICARE ==
--- NOTE | 2016-12-22 01:25 | ECWPNPC ---
PATIENT NAME: CHRISSIE SANFORD : 1940 GENDER: MALE VISIT DATE: 12/11/2016 DISCHARGE DATE: 12/11/16 1319 VISIT LOCKED DATE TIME: PHYSICIAN: CONSTANTINE YANCEY PHYSICIAN PAGER NO: [phone] RESOURCE: CONSTANTINE YANCEY REASON FOR APPOINTMENT 1. DISCUSS FACET WITH IV SED HISTORY OF PRESENT ILLNESS HISTORY OF PRESENT ILLNESS: PAIN THE PATIENT DESCRIBES THE PAIN... 76 YEAR OLD MALE PATIENT WITH HISTORY OF CHRONIC NECK AND LOW BACK PAIN. PATIENT DESCRIBES THE PAIN ACHING AND HAVING IT ALL THE TIME WITH A PAIN SCORE OF 0/10 ON THE NECK AND 6/10 ON THE LOW BACK ON TODAY'S VISIT. PATIENT RECEIVED A BILATERAL C4-C5 AND BILATERAL C5-C6 CERVICAL FACET BLOCK ON 11/11/2016 AND STATES THAT THE INJECTION IS STILL WORKING GREAT FOR HIM. PATIENT STATES THAT HIS BACK IS WHAT HURTS THE MOST TODAY. PATIENT ASKED WHETHER HE COULD GET AN INJECTION ON HIS BACK, BUT WITH IV SEDATION THE INJECTION ON 11/11/2016 CAUSE HIM A LOT OF PAIN DURING THE PROCEDURE. PATIENT DENIES UNEXPLAINABLE WEIGHT LOSS, FEVER, CHILLS, NEW CHANGES ON HIS URINARY OR BOWEL CONTROL. FALL RISK SCREENING: SCREENING :NO FALLS IN THE PAST YEAR CURRENT MEDICATIONS TAKING FERROUS SULFATE 325 (65 FE) MG TABLET 1 TABLET ORALLY ONCE A DAY TAKING FISH OIL 1000 MG OTC 1 CAPSULE ORALLY ONCE A DAY TAKING MULTIVITAMINS OTC TABLET 1 TAB ORALLY ONCE A DAY TAKING VITAMIN D 1000 UNIT OTC 1 TABLET ORALLY ONCE A DAY TAKING SELENIUM 200 MCG OTC 1 TAB ORALLY ONCE A DAY TAKING CALCIUM 600 + D 600-200 MG-UNIT OTC 1 TABLET ORALLY ONCE A DAY TAKING VITAMIN C 500 MG OTC 1 TABLET ORALLY ONCE A DAY TAKING VITAMIN A 8000 UNIT OTC 1 CAPSULE ORALLY ONCE A DAY TAKING VITAMIN B COMPLEX 500 MG OTC 1 TABLET ORALLY ONCE A DAY TAKING VITAMIN B 12 1000 MG TABLET 1 TAB(S) ORALLY DAILY TAKING ASPIR-81 81 MG TABLET DELAYED RELEASE 1 TABLET ORALLY ONCE A DAY TAKING ZOCOR 20 MG TABLET 1 TABLET EVERY EVENING ORALLY ONCE A DAY TAKING OMEPRAZOLE 40 MG CAPSULE DELAYED RELEASE 1 CAPSULE ORALLY TWICE A DAY TAKING AVAPRO 300 MG TABLET TAKE ONE TABLET BY MOUTH EVERY DAY ORALLY ONCE A DAY TAKING INDAPAMIDE 2.5 MG TABLET TAKE ONE TABLET BY MOUTH EVERY MORNING TAKING MELOXICAM 7.5 MG TABLET TAKE ONE TABLET BY MOUTH TWICE A DAY NEEDED MAXIMUM DAILY DOSE = 2 TABLETS TAKING OXYBUTYNIN CHLORIDE ER 10 MG TABLET EXTENDED RELEASE 24 HOUR 1 TABLET ORALLY ONCE A DAY TAKING TRAZODONE 50 50MG TABLET 1 TABLET ORAL BEDTIME NOT-TAKING REQUIP 0.25 MG TABLET TAKE TWO TABLETS BY MOUTH 1-3 HOURS BEFORE BEDTIME NOT-TAKING MYRBETRIQ 50 MG TABLET EXTENDED RELEASE 24 HOUR 1 TABLET ORALLY ONCE A DAY, NOTES: 11/10/16 1700 NOT-TAKING TRAZODONE HCL 50 MG TABLET TAKE ONE TABLET BY MOUTH AT BEDTIME MEDICATION LIST REVIEWED AND RECONCILED WITH THE PATIENT PAST MEDICAL HISTORY TYPE 2 DM-- DIETARY CONTROL HYPERLIPIDEMIA FIBROMYALGIA--DISABLED ALLERGIES BPH GENERALIZED OA NEGATIVE CATH NO CAD; NORMAL STRESS ECHO 12/23 (EF 60%) HYPERTENSION PULMONARY FIBROSIS COLON POLYP ADENOMATOUS COLONSCOPY 05/13,05/16,10/17,11/17, DDD/C-SPINE XRAY 02/13; HAD MRIS DONE AT [facility] ([facility]), DX WITH CERVICAL AND LUMBAR SPONDYLOSIS; SOS/NYSW INJECTIONS 2014, 2015; [facility] 2016 MILD ANEMIA FROM Q 2 MONTH BLOOD DONATIONS BILATERAL SHOULDER TENDONITIS/ARTHIRITIS VENTRAL HERNIA ERECTILE DYSFUNCTION GERD/SCHATZKI'S RING DEPRESSION XEROSTOMIA (? FROM [facility]) RESTLESS LEG SYNDROME ZOEY ON CPAP PER PULMONARY HAD NCS DONE AT [facility], NO RECORDS SENT VASC SX EVALUATION 04/26 DR SHULTZ--NORMAL LOWER EXT CIRCULATION ALLERGIES N.K.D.A. SURGICAL HISTORY SPURS ON LEFT FOOT BY 1996 & [address] ARTHROSCOPIC SURGERY DR. LAYTON 2003 & 2008 LEFT KNEE TOTAL KNEE REPLACEMENT [place] N.[place] DR. CASON 01/2010 COLONOSCOPIES--ADENOMATOUS POLYPS; NL COLO 03/24, 2013, 01/23 2002,2004,2007,2008, 03/25, 01/[address] KAMLA SANTOS 04/2010 EGD - [place] [facility]--[place] 03/24 02/19, 03/24 GALL BLADDER REMOVAL 11/2012 STEROID INJECTION ( SOS, [place]) 11/24 FAMILY HISTORY FATHER: DIABETES, TYPE II, DIAGNOSED WITH DIABETES MOTHER: COLON CARCINOMA, DIAGNOSED WITH CANCER SIBLINGS: COLON CARCINOMA, PROSTATE CA, SISTER WITH THYROID CANCER, DIAGNOSED WITH CANCER 2 SON(S) , 1 DAUGHTER(S) . DENIES FAMILY HISTORY OF MM. SOCIAL HISTORY GENERAL: TOBACCO USE ARE YOU A:FORMER SMOKER HOW LONG HAS IT BEEN SINCE YOU LAST SMOKED?> 10 YEARS BMI CARE GOAL FOLLOW-UP ABOVE NORMAL BMI FOLLOW-UPLIFESTYLE EDUCATION REGARDING DIET ALCOHOL SCREENING DID YOU HAVE A DRINK CONTAINING ALCOHOL IN THE PAST YEAR?NO POINTS0 INTERPRETATIONNEGATIVE RECREATIONAL DRUG USE DRUG USE?NO CAFFEINE CAFFEINE USE?YES 2 CUPS DAY LEARNING BARRIERS / SPECIAL NEEDS CHANGE FROM LAST VISIT?NO BARRIERS TO LEARNING?NO HEARING IMPAIRED?YES :HEARING AIDES VISION IMPAIRED?YES :CORRECTIVE LENSES COGNITIVELY IMPAIRED?NO READINESS TO LEARN?YES LEARNING PREFERENCES?NO LEARNING CAPABILITIES PRESENT?YES EMOTIONAL BARRIERS?NO SPECIAL DEVICES?NO AUTHORIZER NEEDED?NO PAIN CLINIC PFS, CLERGY, PUBLIC HEALTH REFERRALS CLERGY REFERRAL NEEDED?NO WAS THE PROVIDER NOTIFIED OF ANY PERTINENT INFO?NO PFS REFERRAL NEEDED?NO PUBLIC HEALTH REFERRAL NEEDED?NO PATIENT: ____. HOSPITALIZATION/MAJOR DIAGNOSTIC PROCEDURE SURGERY RELATED REVIEW OF SYSTEMS CONSTITUTIONAL: ANY CHANGE IN YOUR MEDICAL CONDITION? NO . CHILLS NO . FEVER NO . INFECTION: DO YOU HAVE NEW INFECTIONS? NO . DO YOU HAVE HISTORY OF MRSA? NO . MUSCULOSKELETAL: ANY NEW PATTERNS OF PAIN OR NUMBNESS? NO . GASTROENTEROLOGY: ANY NEW CHANGE IN BOWEL CONTROL? NO . GENITOURINARY: ANY NEW CHANGE IN BLADDER CONTROL? NO . IS THERE A CHANCE YOU COULD BE ? NO . HEMATOLOGY/LYMPH: DO YOU TAKE ANY BLOOD THINNERS? (FOR EXAMPLE- COUMADIN, PLAVIX, AGGRENOX, PLATEL, PRADAXA, OR XARELTO) NO . WHEN WAS YOUR LAST DOSE? DATE: TIME: . NEUROLOGY: HAVE YOU FALLEN IN THE PAST 6 MONTHS? NO . ANY NEW EXTREMITY NUMBNESS OR WEAKNESS? NO . CARDIOLOGY: DO YOU HAVE A PACEMAKER OR DEFIBRILLATOR? NO . RESPIRATORY: HAVE YOU BEEN SICK IN THE PAST WEEK? NO . FEVER NO . FLU LIKE SYMPTOMS? NO . COUGH NO . INTEGUMENTARY: DO YOU HAVE ANY RASHES OR OPEN SORES? NO . ALLERGIC/IMMUNO: ARE YOU ALLERGIC TO SHELLFISH OR IV DYE? NO . ANY NEW ALLERGIES? NO . PSYCHIATRIC: DO YOU HAVE THOUGHTS OF HURTING YOURSELF OR SOMEONE ELSE? NO . ARE YOU ABUSED, NEGLECTED, OR IN AN UNSAFE ENVIRONMENT? NO . ENDOCRINOLOGY: ARE YOU DIABETIC? NO . OTHER: DO YOU NEED ANY PRESCRIPTIONS? NO . IF YES, PLEASE LIST: ____ . ANY NEW PROBLEMS WITH YOUR MEDICATIONS? NO . WHEN DID YOU LAST EAT? ____ . WHEN DID YOU LAST DRINK? ____ . WHAT DID YOU LAST DRINK? ____ . NAME OF PERSON DRIVING YOU HOME? ____ . DO YOU HAVE ANY OTHER QUESTIONS OR CONCERNS NO . REVIEWED BY: PROVIDER: CONSTANTINE YANCEY MD . VITAL SIGNS WT 215 LBS, HT 69 IN, BMI 31.75 INDEX, BP 162/80 MM HG, HR 86 /MIN, RR 18 /MIN, TEMP 97.0 F, OXYGEN SAT % 96%, NA INITIALS SC 12:45, REVIEWED BY: AD. EXAMINATION : PATIENT IS ALERT O X 3 AND COOPERATIVE. THERE IS TENDERNESS IN THE LOW BACK PARASPINAL MUSCLE GROUP ESPECIALLY IN THE FACET JOINTS. ASSESSMENTS SPONDYLOSIS WITHOUT MYELOPATHY OR RADICULOPATHY, LUMBAR REGION - M47.816 (PRIMARY) SPONDYLOSIS WITHOUT MYELOPATHY OR RADICULOPATHY, LUMBOSACRAL REGION - M47.817 TREATMENT SPONDYLOSIS WITHOUT MYELOPATHY OR RADICULOPATHY, LUMBAR REGION NOTES: WE DISCUSSED SEVERAL ISSUES WITH MR. [facility] PAIN MANAGEMENT CASE. AT THIS TIME THE PATIENT WILL CONTINUE WITH THE SAME MEDICATION MEDICATIONS BEFORE. AFTER EXAMINING THE PATIENT AND REVIEWING THE MRI OF THE LUMBAR SPINE PATIENT IS A GOOD CANDIDATE FOR A LUMBAR FACET BLOCK THERAPEUTIC INJECTION. DUE TO THE PAIN, ANXIETY, AND DISCOMFORT THIS PROCEDURE WILL CAUSE THE PATIENT I WILL PROCEED WITH IV SEDATION. WE DISCUSSED THE RISK, BENEFITS, AND ALTERNATIVES AND THE PATIENT WOULD LIKE TO PROCEED WITH THE INJECTION WITH IV SEDATION. PATIENT WILL BE BOOKING PENDING APPROVAL. PATIENT WILL FOLLOW UP WITH ARABELLA YBARRA AFTER THE PROCEDURE. INSTRUCTIONS WERE GIVEN, QUESTIONS WERE ANSWERED, PATIENT REPORTS UNDERSTANDING AND AGREES WITH THE PLAN. I, GRETCHEN KUMAR, DOCUMENTED THE ABOVE INFORMATION ACTING A SCRIBE FOR DR. YANCEY. I HAVE REVIEWED THE ABOVE DOCUMENT, WRITTEN BY GRETCHEN ESQUIVEL AND I VERIFY THAT IT IS ACCURATE. OTHERS NOTES: FACET JOINT INJECTION MATERIAL WAS PRINTED,FACET JOINT INJECTION: YOUR EXPERIENCE MATERIAL WAS PRINTED. PREVENTIVE MEDICINE PAIN CLINIC TEACHING: PROCEDURE TEACHING PRINTED INFORMATION ON FACET BLOCK GIVEN TO AND REVIEWED WITH PT. ALONG WITH PRE-PROCEDURE INSTRUCTIONS AND PT. VERBALIZED UNDERSTANDING ON BOTH. AD. PROCEDURE CODES FA211 ESTABILISHED PATIENT [facility] CHARGE [id number] PAIN ASSESS POS TOOL F/U PLAN DOC G8427 DOC MEDS VERIFIED W/PT OR RE DISPOSITION & COMMUNICATION FOLLOW UP 4 WEEKS ELECTRONICALLY SIGNED BY CONSTANTINE YANCEY MD ON 12/21/2016 AT 07:49 PM EDT DISCLAIMER : THIS IS A VISIT SUMMARY [facility]. IT IS NOT A COPY OF THE [facility] PROGRESS NOTE. MTDD
== END ==
LOC: M PAIN 13:00
PROVIDERS: ATTEND Anesthesiology
DX: G89.29 Other chronic pain (principal); M47.816 Spondylosis without myelopathy or radiculopathy, lumbar region; M47.817 Spondylosis without myelopathy or radiculopathy, lumbosacral region; E11.9 Type 2 diabetes mellitus without complications; E78.5 Hyperlipidemia, unspecified; M79.7 Fibromyalgia; I10 Essential (primary) hypertension; J84.10 Pulmonary fibrosis, unspecified; M19.011 Primary osteoarthritis, right shoulder; M19.012 Primary osteoarthritis, left shoulder; K21.9 Gastro-esophageal reflux disease without esophagitis; F32.9 Major depressive disorder, single episode, unspecified; G25.81 Restless legs syndrome; G47.33 Obstructive sleep apnea (adult) (pediatric); Z79.82 Long term (current) use of aspirin; Z79.899 Other long term (current) drug therapy; Z87.891 Personal history of nicotine dependence

== ENCOUNTER → 2016-12-21 | Outpatient (CLI) | payer MEDICARE ==
[~2016-12-21] MED LIST changes: +BUPIVACAINE HCL 0.25% 30 ML VIAL As Ordered ONE; +ISOVUE-M 300 61% 15ML VIAL (Q9967) As Ordered ONE; +LIDOCAINE 1% SDV INJ 30 ML VIAL As Ordered ONE; +MIDAZOLAM INJ 2 MG/2 ML VIAL (J2250) As Ordered ONE; +TRIAMCINOLONE ACETONIDE SUSP 40 MG/ML VIAL (J3301) As Ordered ONE; +fentaNYL 100 MCG/2 ML INJECTION (J3010) As Ordered ONE
--- NOTE | 2016-12-21 14:43 | REP ---
FACET BLOCK: the images were reviewed with Dr. Jesus. The patient has a history of spondylosis and low back pain. The portable C-arm is provided in the OR for Dr. Rojas for fluoroscopic guidance. Two intraoperative fluoroscopic spot films are obtained for needle placement verification for bilateral lumbar facet injection. The films are on the PACS system and are available for review. 16 seconds of fluoroscopy time was utilized for this procedure. Reviewed by JANUARY Medellin 12/21/2016 05:04 PEdited and Signed by Nixon Jesus MD 12/21/2016 05:15 P
--- NOTE | 2017-01-02 00:02 | ECWPNPC ---
PATIENT NAME: CHRISSIE SANFORD : 1940 GENDER: MALE VISIT DATE: 12/21/2016 DISCHARGE DATE: 12/21/16 1444 VISIT LOCKED DATE TIME: PHYSICIAN: CONSTANTINE YANCEY PHYSICIAN PAGER NO: [phone] RESOURCE: CONSTANTINE YANCEY REASON FOR APPOINTMENT 1. LFBT W/ IV SEDATION DISCUSSED WITH DR. Griffiths HISTORY OF PRESENT ILLNESS HISTORY OF PRESENT ILLNESS: PAIN THE PATIENT DESCRIBES THE PAIN... FALL RISK SCREENING: SCREENING :NO FALLS IN THE PAST YEAR CURRENT MEDICATIONS TAKING SIMVASTATIN 20 MG TABLET TAKE ONE TABLET BY MOUTH EVERY EVENING , NOTES: 1700 TAKING INDAPAMIDE 2.5 MG TABLET TAKE ONE TABLET BY MOUTH EVERY MORNING , NOTES: 0630 TAKING FERROUS SULFATE 325 (65 FE) MG TABLET 1 TABLET ORALLY ONCE A DAY, NOTES: 0400 TAKING FISH OIL 1000 MG OTC 1 CAPSULE ORALLY ONCE A DAY, NOTES: 0400 TAKING MULTIVITAMINS OTC TABLET 1 TAB ORALLY ONCE A DAY, NOTES: 0400 TAKING VITAMIN D 1000 UNIT OTC 1 TABLET ORALLY ONCE A DAY, NOTES: 1700 TAKING SELENIUM 200 MCG OTC 1 TAB ORALLY ONCE A DAY, NOTES: 0630 TAKING CALCIUM 600 + D 600-200 MG-UNIT OTC 1 TABLET ORALLY ONCE A DAY, NOTES: 1700- TAKING VITAMIN C 500 MG OTC 1 TABLET ORALLY ONCE A DAY, NOTES: 0630 TAKING VITAMIN A 8000 UNIT OTC 1 CAPSULE ORALLY ONCE A DAY, NOTES: 0630 TAKING VITAMIN B COMPLEX 500 MG OTC 1 TABLET ORALLY ONCE A DAY, NOTES: 0630 TAKING VITAMIN B 12 1000 MG TABLET 1 TAB(S) ORALLY DAILY, NOTES: 0630 TAKING ASPIR-81 81 MG TABLET DELAYED RELEASE 1 TABLET ORALLY ONCE A DAY, NOTES: 0630 TAKING ZOCOR 20 MG TABLET 1 TABLET EVERY EVENING ORALLY ONCE A DAY, NOTES: 1700 TAKING OMEPRAZOLE 40 MG CAPSULE DELAYED RELEASE 1 CAPSULE ORALLY TWICE A DAY, NOTES: 0430 TAKING AVAPRO 300 MG TABLET TAKE ONE TABLET BY MOUTH EVERY DAY ORALLY ONCE A DAY, NOTES: 0430 TAKING MELOXICAM 7.5 MG TABLET TAKE ONE TABLET BY MOUTH TWICE A DAY NEEDED MAXIMUM DAILY DOSE = 2 TABLETS , NOTES: 0430 TAKING OXYBUTYNIN CHLORIDE ER 10 MG TABLET EXTENDED RELEASE 24 HOUR 1 TABLET ORALLY ONCE A DAY, NOTES: 8PM TAKING TRAZODONE 50 50MG TABLET 1 TABLET ORAL BEDTIME, NOTES: 8PM NOT-TAKING REQUIP 0.25 MG TABLET TAKE TWO TABLETS BY MOUTH 1-3 HOURS BEFORE BEDTIME NOT-TAKING MYRBETRIQ 50 MG TABLET EXTENDED RELEASE 24 HOUR 1 TABLET ORALLY ONCE A DAY, NOTES: 11/10/16 1700 NOT-TAKING TRAZODONE HCL 50 MG TABLET TAKE ONE TABLET BY MOUTH AT BEDTIME MEDICATION LIST REVIEWED AND RECONCILED WITH THE PATIENT PAST MEDICAL HISTORY TYPE 2 DM-- DIETARY CONTROL HYPERLIPIDEMIA FIBROMYALGIA--DISABLED ALLERGIES BPH GENERALIZED OA NEGATIVE CATH NO CAD; NORMAL STRESS ECHO 12/23 (EF 60%) HYPERTENSION PULMONARY FIBROSIS COLON POLYP ADENOMATOUS COLONSCOPY 05/13,05/16,10/17,11/17, DDD/C-SPINE XRAY 02/13; HAD MRIS DONE AT [facility] ([place] DX WITH CERVICAL AND LUMBAR SPONDYLOSIS; SOS/NYSW INJECTIONS 2014, 2015; [facility] 2016 MILD ANEMIA FROM Q 2 MONTH BLOOD DONATIONS BILATERAL SHOULDER TENDONITIS/ARTHIRITIS VENTRAL HERNIA ERECTILE DYSFUNCTION GERD/SCHATZKI'S RING DEPRESSION XEROSTOMIA (? FROM [place]) RESTLESS LEG SYNDROME ZOEY ON CPAP PER PULMONARY HAD NCS DONE AT [facility], NO RECORDS SENT VASC SX EVALUATION 04/26 DR SHULTZ--NORMAL LOWER EXT CIRCULATION ALLERGIES N.K.D.A. REVIEW OF SYSTEMS REVIEWED BY: PROVIDER: . CONSTITUTIONAL: ANY CHANGE IN YOUR MEDICAL CONDITION? NO . CHILLS NO . FEVER NO . INFECTION: DO YOU HAVE NEW INFECTIONS? NO . DO YOU HAVE HISTORY OF MRSA? NO . MUSCULOSKELETAL: ANY NEW PATTERNS OF PAIN OR NUMBNESS? NO . GASTROENTEROLOGY: ANY NEW CHANGE IN BOWEL CONTROL? NO . GENITOURINARY: ANY NEW CHANGE IN BLADDER CONTROL? NO . IS THERE A CHANCE YOU COULD BE ? NO . HEMATOLOGY/LYMPH: DO YOU TAKE ANY BLOOD THINNERS? (FOR EXAMPLE- COUMADIN, PLAVIX, AGGRENOX, PLATEL, PRADAXA, OR XARELTO) NO . WHEN WAS YOUR LAST DOSE? DATE: TIME: . NEUROLOGY: HAVE YOU FALLEN IN THE PAST 6 MONTHS? NO . ANY NEW EXTREMITY NUMBNESS OR WEAKNESS? NO . CARDIOLOGY: DO YOU HAVE A PACEMAKER OR DEFIBRILLATOR? NO . RESPIRATORY: HAVE YOU BEEN SICK IN THE PAST WEEK? NO . FEVER NO . FLU LIKE SYMPTOMS? NO . COUGH NO . INTEGUMENTARY: DO YOU HAVE ANY RASHES OR OPEN SORES? NO . ALLERGIC/IMMUNO: ARE YOU ALLERGIC TO SHELLFISH OR IV DYE? NO . ANY NEW ALLERGIES? NO . PSYCHIATRIC: DO YOU HAVE THOUGHTS OF HURTING YOURSELF OR SOMEONE ELSE? NO . ARE YOU ABUSED, NEGLECTED, OR IN AN UNSAFE ENVIRONMENT? NO . ENDOCRINOLOGY: ARE YOU DIABETIC? NO . OTHER: DO YOU NEED ANY PRESCRIPTIONS? NO . IF YES, PLEASE LIST: ____ . ANY NEW PROBLEMS WITH YOUR MEDICATIONS? NO . WHEN DID YOU LAST EAT? 0430 . WHEN DID YOU LAST DRINK? 0630 . WHAT DID YOU LAST DRINK? COFFEE . NAME OF PERSON DRIVING YOU HOME? DEANNA . DO YOU HAVE ANY OTHER QUESTIONS OR CONCERNS NO . VITAL SIGNS WT 213.8 LBS, HT 69 IN, BMI 31.57 INDEX, BP 156/74 MM HG, HR 66 /MIN, RR 18 /MIN, TEMP 98.4 F, OXYGEN SAT % 93%, NA INITIALS SC 11:42, REVIEWED BY: NL. ASSESSMENTS SPONDYLOSIS WITHOUT MYELOPATHY OR RADICULOPATHY, LUMBAR REGION - M47.816 (PRIMARY) SPONDYLOSIS WITHOUT MYELOPATHY OR RADICULOPATHY, LUMBOSACRAL REGION - M47.817 PROCEDURES PN LUMBAR FACET BLOCK THERAPEUTIC PRE PROCEDURE DIAGNOSIS LUMBAR SPONDYLOSIS, LUMBOSACRAL SPONDYLOSIS POST PROCEDURE DIAGNOSIS LUMBAR SPONDYLOSIS, LUMBOSACRAL SPONDYLOSIS PROCEDURE BILATERAL L4-L5 AND BILATERAL L5-S1 LUMBAR FACET THERAPEUTIC BLOCK SURGEON DR. CONSTANTINE YANCEY CEO AND [employer] ANESTHESIA LOCAL WITH IV SEDATION PRE PROCEDURE NOTE THE PATIENT HAS A HISTORY OF CHRONIC LOW BACK PAIN. I EVALUATE THE PATIENT AND REVIEWED THE CHART. I WENT OVER THE RISKS, ALTERNATIVES, AND BENEFITS ASSOCIATED WITH THIS PROCEDURE. THE PATIENT WOULD LIKE TO PROCEED AND GIVE CONSENT TO PERFORMED THE PROCEDURE. THE PATIENT DENIES UNEXPLAINABLE WEIGHT LOSS, FEVER, CHILLS, OR NEW CHANGES IN URINARY OR BOWEL CONTROL DESCRIPTION OF PROCEDURE THE PATIENT WAS BROUGHT TO THE PROCEDURE ROOM AND PLACED IN THE PRONE POSITION. THE LUMBOSACRAL AREA WAS CLEANED WITH CHLORAPREP SOLUTION AND DRAPED ASEPTICALLY. THE PROCEDURE WAS DONE UNDER STERILE CONDITIONS. I CHECKED LATERALITY AND THE LEVEL WHERE THE PROCEDURE WAS GOING TO BE PERFORMED WITH THE PATIENT AND THE SUPPORTING STAFF AT THE MOMENT OF THE TIME OUT IN THE PROCEDURE ROOM. UNDER FLUOROSCOPIC GUIDANCE, THE TARGET POINT WAS SELECTED AT THE RIGHT AND LEFT L4-L5 AND RIGHT AND LEFT L4-L5 FACET JOINT. TARGET POINT WAS SELECTED AFTER LATERAL ROTATION AND TILT OF THE MAGNIFIER OF THE C-ARM. LIDOCAINE 0.5% WAS USED TO NUMB THE SKIN AND THE SUBCUTANEOUS TISSUE BELOW IT. SPINAL NEEDLES, 22-GAUGE, WERE ADVANCED UNDER FLUOROSCOPIC GUIDANCE AND FOLLOWING PATIENT FEEDBACK UNTIL THE TARGETS WERE TOUCHED. THE POSITION OF THE NEEDLES WAS VERIFIED WITH AP AND LATERAL VIEWS. AFTER PROPER POSITION OF THE NEEDLES WAS ACHIEVED, ISOVUE-M DYE 30% 0.1 ML WAS INJECTED SHOWING ADEQUATE SPREAD OF THE DYE. THEN A SOLUTION OF 1.9 ML OF BUPIVACAINE 0.125% OF KENALOG 10 MG WAS INJECTED AT EACH SITE. PATIENT RECEIVED VERSED 2 MG AND FENTANYL 100 MCG IV DIVIDED DOSES THERE WAS NO EVIDENCE OF BLOOD, PARESTHESIA OR CEREBROSPINAL FLUID DURING THE PROCEDURE. THE PATIENT WAS SENT TO THE RECOVERY ROOM. THE PATIENT WAS MOVING THE EXTREMITIES AND DOING WELL. THERE WAS NO COMPLICATION DURING THE PROCEDURE. FLUOROSCOPY TIME WAS 16 SECONDS. FACE TO FACE TIME WAS 18 MINUTES POST PROCEDURE NOTE THE PATIENT WILL BE SEEN IN A FOLLOW UP IN THE NEXT FEW WEEKS. INSTRUCTIONS WERE GIVEN, QUESTIONS WERE ANSWERED, AND THE PATIENT EXPRESSED UNDERSTANDING AND AGREES WITH THE PLAN. I, JAZMIN ANDRADE, DOCUMENTED THE ABOVE INFORMATION ACTING A SCRIBE FOR DR. YANCEY. I HAVE REVIEWED THE ABOVE DOCUMENT, WRITTEN BY JAZMIN ESQUIVEL AND I VERIFY THAT IT IS ACCURATE DIAGNOSTIC IMAGING [facility] FACET BLOCK (PAIN)[id number] PROCEDURE CODES 60884 INJ PARAVERT F JNT L/S 1 LEV 73891 INJ PARAVERT F JNT L/S 2 LEV 6045F RADXPS IN END [id number] PXD 88021 MOD SED SAME PHYS/QHP 5/>YRS DISPOSITION & COMMUNICATION FOLLOW UP 3 WEEKS ELECTRONICALLY SIGNED BY CONSTANTINE YANCEY MD ON 01/01/2017 AT 08:25 AM EDT DISCLAIMER : THIS IS A VISIT SUMMARY EXTRACTED FROM THE [facility] CHART. IT IS NOT A COPY OF THE [facility] PROGRESS NOTE. MTDD
== END ==
LOC: M PAIN 11:40
PROVIDERS: ATTEND Anesthesiology
DX: G89.29 Other chronic pain (principal); M47.816 Spondylosis without myelopathy or radiculopathy, lumbar region; M47.817 Spondylosis without myelopathy or radiculopathy, lumbosacral region; E11.9 Type 2 diabetes mellitus without complications; E78.2 Mixed hyperlipidemia; J30.9 Allergic rhinitis, unspecified; M15.0 Primary generalized (osteo)arthritis; I10 Essential (primary) hypertension; K21.9 Gastro-esophageal reflux disease without esophagitis; F32.9 Major depressive disorder, single episode, unspecified; G25.81 Restless legs syndrome; G47.30 Sleep apnea, unspecified; J84.10 Pulmonary fibrosis, unspecified; Z79.82 Long term (current) use of aspirin; Z79.891 Long term (current) use of opiate analgesic; Z79.899 Other long term (current) drug therapy
CPT/HCPCS: 64493; 64494; 99152; J2250; J3010; J3301; Q9967

== ENCOUNTER → 2017-01-13 | Outpatient (CLI) | payer MEDICARE ==
[~2017-01-13] MED LIST changes: -BUPIVACAINE HCL 0.25% 30 ML VIAL As Ordered ONE; -ISOVUE-M 300 61% 15ML VIAL (Q9967) As Ordered ONE; -LIDOCAINE 1% SDV INJ 30 ML VIAL As Ordered ONE; -MIDAZOLAM INJ 2 MG/2 ML VIAL (J2250) As Ordered ONE; -TRIAMCINOLONE ACETONIDE SUSP 40 MG/ML VIAL (J3301) As Ordered ONE; -fentaNYL 100 MCG/2 ML INJECTION (J3010) As Ordered ONE
--- NOTE | 2017-01-25 00:02 | ECWPNPC ---
PATIENT NAME: CHRISSIE SANFORD : 1940 GENDER: MALE VISIT DATE: 01/13/2017 DISCHARGE DATE: 01/13/17 1538 VISIT LOCKED DATE TIME: PHYSICIAN: CONSTANTINE YANCEY PHYSICIAN PAGER NO: [phone] RESOURCE: CONSTANTINE YANCEY REASON FOR APPOINTMENT 1. LOW BACK PAIN HISTORY OF PRESENT ILLNESS HISTORY OF PRESENT ILLNESS: PAIN THE PATIENT DESCRIBES THE PAIN... 76 YEAR OLD MALE PATIENT WITH HISTORY OF CHRONIC LOW BACK PAIN. PATIENT DESCRIBES THE PAIN ACHING WITH A PAIN SCORE OF 0-2/10. PATIENT RECEIVED A THERAPEUTIC LUMBAR FACET BLOCK ON 12/21/16 AND REPORTS HAVING OVER 50% RELIEF FROM PAIN AND INCREASED MOBILITY AND FUNCTIONALITY. PATIENT REPORTS DOING VERY WELL FROM THE INJECTION. PATIENT DENIES UNEXPLAINABLE WEIGHT LOSS, FEVER, CHILLS, NEW CHANGES ON HIS URINARY OR BOWEL CONTROL. FALL RISK SCREENING: SCREENING :NO FALLS IN THE PAST YEAR CURRENT MEDICATIONS TAKING SIMVASTATIN 20 MG TABLET TAKE ONE TABLET BY MOUTH EVERY EVENING TAKING INDAPAMIDE 2.5 MG TABLET TAKE ONE TABLET BY MOUTH EVERY MORNING TAKING FERROUS SULFATE 325 (65 FE) MG TABLET 1 TABLET ORALLY ONCE A DAY TAKING FISH OIL 1000 MG OTC 1 CAPSULE ORALLY ONCE A DAY TAKING MULTIVITAMINS OTC TABLET 1 TAB ORALLY ONCE A DAY TAKING VITAMIN D 1000 UNIT OTC 1 TABLET ORALLY ONCE A DAY TAKING SELENIUM 200 MCG OTC 1 TAB ORALLY ONCE A DAY TAKING CALCIUM 600 + D 600-200 MG-UNIT OTC 1 TABLET ORALLY ONCE A DAY TAKING VITAMIN C 500 MG OTC 1 TABLET ORALLY ONCE A DAY TAKING VITAMIN A 8000 UNIT OTC 1 CAPSULE ORALLY ONCE A DAY TAKING VITAMIN B COMPLEX 500 MG OTC 1 TABLET ORALLY ONCE A DAY TAKING VITAMIN B 12 1000 MG TABLET 1 TAB(S) ORALLY DAILY TAKING ASPIR-81 81 MG TABLET DELAYED RELEASE 1 TABLET ORALLY ONCE A DAY TAKING ZOCOR 20 MG TABLET 1 TABLET EVERY EVENING ORALLY ONCE A DAY TAKING OMEPRAZOLE 40 MG CAPSULE DELAYED RELEASE 1 CAPSULE ORALLY TWICE A DAY TAKING AVAPRO 300 MG TABLET TAKE ONE TABLET BY MOUTH EVERY DAY ORALLY ONCE A DAY TAKING MELOXICAM 7.5 MG TABLET TAKE ONE TABLET BY MOUTH TWICE A DAY NEEDED MAXIMUM DAILY DOSE = 2 TABLETS TAKING OXYBUTYNIN CHLORIDE ER 10 MG TABLET EXTENDED RELEASE 24 HOUR 1 TABLET ORALLY ONCE A DAY TAKING TRAZODONE 50 50MG TABLET 1 TABLET ORAL BEDTIME NOT-TAKING REQUIP 0.25 MG TABLET TAKE TWO TABLETS BY MOUTH 1-3 HOURS BEFORE BEDTIME NOT-TAKING MYRBETRIQ 50 MG TABLET EXTENDED RELEASE 24 HOUR 1 TABLET ORALLY ONCE A DAY, NOTES: 11/10/16 1700 NOT-TAKING TRAZODONE HCL 50 MG TABLET TAKE ONE TABLET BY MOUTH AT BEDTIME MEDICATION LIST REVIEWED AND RECONCILED WITH THE PATIENT PAST MEDICAL HISTORY TYPE 2 DM-- DIETARY CONTROL HYPERLIPIDEMIA FIBROMYALGIA--DISABLED ALLERGIES BPH GENERALIZED OA NEGATIVE CATH NO CAD; NORMAL STRESS ECHO 12/23 (EF 60%) HYPERTENSION PULMONARY FIBROSIS COLON POLYP ADENOMATOUS COLONSCOPY 05/13,05/16,10/17,11/17, DDD/C-SPINE XRAY 02/13; HAD MRIS DONE AT [facility] ([facility]), DX WITH CERVICAL AND LUMBAR SPONDYLOSIS; SOS/NYSW INJECTIONS 2014, 2015; [facility] 2016 MILD ANEMIA FROM Q 2 MONTH BLOOD DONATIONS BILATERAL SHOULDER TENDONITIS/ARTHIRITIS VENTRAL HERNIA ERECTILE DYSFUNCTION GERD/SCHATZKI'S RING DEPRESSION XEROSTOMIA (? FROM [facility]) RESTLESS LEG SYNDROME ZOEY ON CPAP PER PULMONARY HAD NCS DONE AT [facility], NO RECORDS SENT VASC SX EVALUATION 04/26 DR SHULTZ--NORMAL LOWER EXT CIRCULATION ALLERGIES N.K.D.A. REVIEW OF SYSTEMS REVIEWED BY: PROVIDER: CONSTANTINE YANCEY MD . CONSTITUTIONAL: ANY CHANGE IN YOUR MEDICAL CONDITION? NO . CHILLS NO . FEVER NO . INFECTION: DO YOU HAVE NEW INFECTIONS? NO . DO YOU HAVE HISTORY OF MRSA? NO . MUSCULOSKELETAL: ANY NEW PATTERNS OF PAIN OR NUMBNESS? NO . GASTROENTEROLOGY: ANY NEW CHANGE IN BOWEL CONTROL? NO . GENITOURINARY: ANY NEW CHANGE IN BLADDER CONTROL? NO . IS THERE A CHANCE YOU COULD BE ? NO . HEMATOLOGY/LYMPH: DO YOU TAKE ANY BLOOD THINNERS? (FOR EXAMPLE- COUMADIN, PLAVIX, AGGRENOX, PLATEL, PRADAXA, OR XARELTO) NO . WHEN WAS YOUR LAST DOSE? DATE: TIME: . NEUROLOGY: HAVE YOU FALLEN IN THE PAST 6 MONTHS? NO . ANY NEW EXTREMITY NUMBNESS OR WEAKNESS? NO . CARDIOLOGY: DO YOU HAVE A PACEMAKER OR DEFIBRILLATOR? NO . RESPIRATORY: HAVE YOU BEEN SICK IN THE PAST WEEK? NO . FEVER NO . FLU LIKE SYMPTOMS? NO . COUGH NO . INTEGUMENTARY: DO YOU HAVE ANY RASHES OR OPEN SORES? NO . ALLERGIC/IMMUNO: ARE YOU ALLERGIC TO SHELLFISH OR IV DYE? NO . ANY NEW ALLERGIES? NO . PSYCHIATRIC: DO YOU HAVE THOUGHTS OF HURTING YOURSELF OR SOMEONE ELSE? NO . ARE YOU ABUSED, NEGLECTED, OR IN AN UNSAFE ENVIRONMENT? NO . ENDOCRINOLOGY: ARE YOU DIABETIC? NO . OTHER: DO YOU NEED ANY PRESCRIPTIONS? NO . IF YES, PLEASE LIST: ____ . ANY NEW PROBLEMS WITH YOUR MEDICATIONS? NO . WHEN DID YOU LAST EAT? ____ . WHEN DID YOU LAST DRINK? ____ . WHAT DID YOU LAST DRINK? ____ . NAME OF PERSON DRIVING YOU HOME? ____ . DO YOU HAVE ANY OTHER QUESTIONS OR CONCERNS NO . VITAL SIGNS WT 212.8 LBS, HT 69 IN, BMI 31.42 INDEX, BP 155/75 MM HG, HR 68 /MIN, RR 18 /MIN, TEMP 98.7 F, OXYGEN SAT % 96%, NA INITIALS SC 14:51, REVIEWED BY: RACHELL. EXAMINATION : PATIENT IS ALERT O X 3 AND COOPERATIVE. THERE IS TENDERNESS IN THE LOW BACK PARASPINAL MUSCLE GROUP ESPECIALLY IN THE FACET JOINTS .MRI OF THE LUMBAR SPINE DONE ON 12/21/2015 SHOWS DEGENERATIVE DISC DISEASE ALONG WITH MULTIPLE DISC BULGES. ASSESSMENTS SPONDYLOSIS WITHOUT MYELOPATHY OR RADICULOPATHY, LUMBAR REGION - M47.816 (PRIMARY) SPONDYLOSIS WITHOUT MYELOPATHY OR RADICULOPATHY, LUMBOSACRAL REGION - M47.817 TREATMENT SPONDYLOSIS WITHOUT MYELOPATHY OR RADICULOPATHY, LUMBAR REGION NOTES: WE DISCUSSED SEVERAL ISSUES WITH MR. SANFORD PAIN MANAGEMENT CASE. AT THIS TIME THE PATIENT IS DOING VERY WELL FROM THE LUMBAR FACET BLOCK DONE ON 12/21/16 AND STATES THAT HE DOES NOT NEED ANY INTERVENTIONS AT THIS TIME DUE TO HIS MOBILITY AND FUNCTIONALITY INCREASING. PATIENT WILL RETURN TO THE CLINIC IN 2 MONTHS WITH ARABELLA YBARRA FOR MEDICATION MANAGEMENT. INSTRUCTIONS WERE GIVEN, QUESTIONS WERE ANSWERED, PATIENT REPORTS UNDERSTANDING AND AGREES WITH THE PLAN. I, JAZMIN ANDRADE, DOCUMENTED THE ABOVE INFORMATION ACTING A SCRIBE FOR DR. YANCEY. I HAVE REVIEWED THE ABOVE DOCUMENT, WRITTEN BY JAZMIN SEQUIVEL AND I VERIFY THAT IT IS ACCURATE. PROCEDURE CODES FA211 ESTABILISHED PATIENT [facility] FACILITY CHARGE [id number] DOC MEDS VERIFIED W/PT OR RE G8730 PAIN ASSESS POS TOOL F/U PLAN DOC DISPOSITION & COMMUNICATION FOLLOW UP 2 MONTHS ELECTRONICALLY SIGNED BY CONSTANTINE YANCEY MD ON 01/24/2017 AT 10:15 PM EDT DISCLAIMER : THIS IS A VISIT SUMMARY EXTRACTED FROM THE [employer] CHART. IT IS NOT A COPY OF THE [employer] PROGRESS NOTE. JERONIMO
== END ==
LOC: M PAIN 14:40
PROVIDERS: ATTEND Anesthesiology
DX: G89.29 Other chronic pain (principal); M47.816 Spondylosis without myelopathy or radiculopathy, lumbar region; M47.817 Spondylosis without myelopathy or radiculopathy, lumbosacral region; J84.10 Pulmonary fibrosis, unspecified; E78.2 Mixed hyperlipidemia; J30.9 Allergic rhinitis, unspecified; D64.9 Anemia, unspecified; M15.0 Primary generalized (osteo)arthritis; K21.0 Gastro-esophageal reflux disease with esophagitis; F32.9 Major depressive disorder, single episode, unspecified; G25.81 Restless legs syndrome; Z79.82 Long term (current) use of aspirin; Z79.899 Other long term (current) drug therapy

== ENCOUNTER → 2017-03-03 | Outpatient (REF) | payer MEDICARE ==
[2017-03-03 12:42] LABS: MEAN CORPUSCULAR HEMOGLOBIN 33.1 pg (27.0-33.0); MEAN CORPUSCULAR HGB CONC 34.4 g/dl (32.0-36.5); MEAN CORPUSCULAR VOLUME 96.3 fl (80.0-96.0); RED CELL DISTRIBUTION WIDTH 12.7 % (11.5-14.5); WHITE BLOOD COUNT 6.3 K/mm3 (4.0-10.0)
[2017-03-03 13:01] LABS: FOLATE > 24.0 NG/ML (>5.4); VITAMIN B12 LEVEL 1018 PG/ML (247-911)
[2017-03-03 13:36] LABS: ALBUMIN 4.5 GM/DL (3.2-5.2); ALKALINE PHOSPHATASE 45 U/L (45-117); ALT/SGPT 30 U/L (12-78); ANION GAP 10 MEQ/L (8-16); AST/SGOT 16 U/L (15-37); BILIRUBIN,TOTAL 0.3 MG/DL (0.2-1.0); BLOOD UREA NITROGEN 15 MG/DL (7-18); CALCIUM LEVEL 9.4 MG/DL (8.8-10.2); CARBON DIOXIDE LEVEL 32 MEQ/L (21-32); CHLORIDE LEVEL 97 MEQ/L (98-107); CREATININE FOR GFR 0.92 MG/DL (0.70-1.30); FREE T4 0.99 NG/DL (0.76-1.46); GLOMERULAR FILTRATION RATE > 60.0 (>42); GLUCOSE, FASTING 122 MG/DL (83-110); POTASSIUM SERUM 3.4 MEQ/L (3.5-5.1); SODIUM LEVEL 139 MEQ/L (136-145); TOTAL PROTEIN 7.5 GM/DL (6.4-8.2)
== END ==
LOC: M SFHCADAM 10:10
PROVIDERS: ATTEND Family Medicine
DX: R53.83 Other fatigue (principal); E11.9 Type 2 diabetes mellitus without complications; R07.89 Other chest pain; R48.1 Agnosia; I11.9 Hypertensive heart disease without heart failure
CPT/HCPCS: 80053; 82607; 82746; 83036; 84439; 84443; 85027; 93005; G0463

== ENCOUNTER → 2017-03-17 | Outpatient (CLI) | payer MEDICARE ==
--- NOTE | 2017-03-18 01:22 | ECWPNPC ---
PATIENT NAME: CHRISSIE SANFORD : 1940 GENDER: MALE VISIT DATE: 03/17/2017 DISCHARGE DATE: 03/17/17 1011 VISIT LOCKED DATE TIME: PHYSICIAN: ARABELLA YBARRA PHYSICIAN PAGER NO: [phone] RESOURCE: ARABELLA YBARRA REASON FOR APPOINTMENT 1. BACK PAIN HISTORY OF PRESENT ILLNESS HISTORY OF PRESENT ILLNESS: HERE FOR POST PROCEDURE FOLLOW UP.HAD BILATERAL CERVICAL THERAPEUTIC FACET BLOCK ON 11-11-16.REPORTING >75% IMPROVEMENT IN PAIN THAT CONTINUES TODAY.RATING NECK PAIN 0/10.CHIEF AREA OF PAIN IS LOW BACK.RATING PAIN VAS 2/10.PATIENT IS TOLERABLE.CONTINUES TO EXCERSISE REGULARLY. PAIN THE PATIENT DESCRIBES THE PAIN... THE PATIENT DESCRIBES THE PAIN... FALL RISK SCREENING: SCREENING :NO FALLS IN THE PAST YEAR CURRENT MEDICATIONS TAKING SIMVASTATIN 20 MG TABLET TAKE ONE TABLET BY MOUTH EVERY EVENING TAKING INDAPAMIDE 2.5 MG TABLET TAKE ONE TABLET BY MOUTH EVERY MORNING TAKING FERROUS SULFATE 325 (65 FE) MG TABLET 1 TABLET ORALLY ONCE A DAY TAKING FISH OIL 1000 MG OTC 1 CAPSULE ORALLY ONCE A DAY TAKING MULTIVITAMINS OTC TABLET 1 TAB ORALLY ONCE A DAY TAKING VITAMIN D 1000 UNIT OTC 1 TABLET ORALLY ONCE A DAY TAKING SELENIUM 200 MCG OTC 1 TAB ORALLY ONCE A DAY TAKING CALCIUM 600 + D 600-200 MG-UNIT OTC 2 TABLETS ORALLY ONCE A DAY TAKING VITAMIN C 500 MG OTC 1 TABLET ORALLY ONCE A DAY TAKING VITAMIN A 8000 UNIT OTC 1 CAPSULE ORALLY ONCE A DAY TAKING VITAMIN B 12 1000 MG TABLET 1 TAB(S) ORALLY DAILY TAKING ASPIR-81 81 MG TABLET DELAYED RELEASE 1 TABLET ORALLY ONCE A DAY TAKING OMEPRAZOLE 40 MG CAPSULE DELAYED RELEASE 1 CAPSULE ORALLY TWICE A DAY TAKING MELOXICAM 7.5 MG TABLET TAKE ONE TABLET BY MOUTH TWICE A DAY NEEDED MAXIMUM DAILY DOSE = 2 TABLETS TAKING OXYBUTYNIN CHLORIDE ER 10 MG TABLET EXTENDED RELEASE 24 HOUR 1 TABLET ORALLY ONCE A DAY TAKING TRAZODONE 50 50MG TABLET 1 TABLET ORAL BEDTIME TAKING ROPINIROLE HCL 0.25 MG TABLET 2 TABLET 1 TO 3 HOURS BEFORE BEDTIME ORALLY ONCE A DAY TAKING AVAPRO 300 MG TABLET 1 TABLET ORALLY ONCE A DAY TAKING MAGNESIUM 400 MG CAPSULE 1 TAB ORALLY DAILY NOT-TAKING VITAMIN B COMPLEX 500 MG OTC 1 TABLET ORALLY ONCE A DAY NOT-TAKING MYRBETRIQ 50 MG TABLET EXTENDED RELEASE 24 HOUR 1 TABLET ORALLY ONCE A DAY, NOTES: 11/10/16 1700 NOT-TAKING TRAZODONE HCL 50 MG TABLET TAKE ONE TABLET BY MOUTH AT BEDTIME MEDICATION LIST REVIEWED AND RECONCILED WITH THE PATIENT PAST MEDICAL HISTORY TYPE 2 DM-- DIETARY CONTROL HYPERLIPIDEMIA FIBROMYALGIA--DISABLED ALLERGIES BPH GENERALIZED OA NEGATIVE CATH NO CAD; NORMAL STRESS ECHO 12/23 (EF 60%) HYPERTENSION PULMONARY FIBROSIS COLON POLYP ADENOMATOUS COLONSCOPY 05/13,05/16,10/17,11/17, DDD/C-SPINE XRAY 02/13; HAD MRIS DONE AT [facility] (NO [facility]), DX WITH CERVICAL AND LUMBAR SPONDYLOSIS; SOS/NYSW INJECTIONS 2014, 2016; [facility] 2016 MILD ANEMIA FROM Q 2 MONTH BLOOD DONATIONS BILATERAL SHOULDER TENDONITIS/ARTHIRITIS VENTRAL HERNIA ERECTILE DYSFUNCTION GERD/SCHATZKI'S RING DEPRESSION XEROSTOMIA (? FROM [facility]) RESTLESS LEG SYNDROME ZOEY ON CPAP PER PULMONARY HAD NCS DONE AT [facility], NO RECORDS SENT VASC SX EVALUATION 04/26 DR SHUTLZ--NORMAL LOWER EXT CIRCULATION ALLERGIES N.K.D.A. SOCIAL HISTORY GENERAL: TOBACCO USE ARE YOU A:FORMER SMOKER HOW LONG HAS IT BEEN SINCE YOU LAST SMOKED?> 10 YEARS BMI CARE GOAL FOLLOW-UP ABOVE NORMAL BMI FOLLOW-UPLIFESTYLE EDUCATION REGARDING DIET ALCOHOL SCREENING DID YOU HAVE A DRINK CONTAINING ALCOHOL IN THE PAST YEAR?NO POINTS0 INTERPRETATIONNEGATIVE RECREATIONAL DRUG USE DRUG USE?NO CAFFEINE CAFFEINE USE?YES 2 CUPS DAY ORIENTAL ORTHODOX [id number] NONE LANGUAGE LANGUAGES SPOKEN:URUGUAYAN LEARNING BARRIERS / SPECIAL NEEDS CHANGE FROM LAST VISIT?NO BARRIERS TO LEARNING?NO HEARING IMPAIRED?YES :HEARING AIDES VISION IMPAIRED?YES :CORRECTIVE LENSES COGNITIVELY IMPAIRED?NO READINESS TO LEARN?YES LEARNING PREFERENCES?NO LEARNING CAPABILITIES PRESENT?YES EMOTIONAL BARRIERS?NO SPECIAL DEVICES?NO TRANSIT DRIVER NEEDED?NO PAIN CLINIC PFS, CLERGY, PUBLIC HEALTH REFERRALS PFS REFERRAL NEEDED?NO CLERGY REFERRAL NEEDED?NO PUBLIC HEALTH REFERRAL NEEDED?NO WAS THE PROVIDER NOTIFIED OF ANY PERTINENT INFO?NO HAS THE PATIENT BEEN EDUCATED REGARDING HIS/HER PLAN OF CARE?YES HAS THE PATIENT BEEN EDUCATED REGARDING PAIN, THE RISK FOR PAIN, THE IMPORTANCE OF EFFECTIVE PAIN MANAGEMENT, AND THE PAIN ASSESSMENT PROCESS?YES PATIENT: ____. REVIEW OF SYSTEMS REVIEWED BY: PROVIDER: ARABELLA PRICE . CONSTITUTIONAL: ANY CHANGE IN YOUR MEDICAL CONDITION? NO . CHILLS NO . FEVER NO . INFECTION: DO YOU HAVE NEW INFECTIONS? NO . DO YOU HAVE HISTORY OF MRSA? NO . MUSCULOSKELETAL: ANY NEW PATTERNS OF PAIN OR NUMBNESS? NO . GASTROENTEROLOGY: ANY NEW CHANGE IN BOWEL CONTROL? NO . GENITOURINARY: ANY NEW CHANGE IN BLADDER CONTROL? NO . IS THERE A CHANCE YOU COULD BE ? NO . HEMATOLOGY/LYMPH: DO YOU TAKE ANY BLOOD THINNERS? (FOR EXAMPLE- COUMADIN, PLAVIX, AGGRENOX, PLATEL, PRADAXA, OR XARELTO) NO . WHEN WAS YOUR LAST DOSE? DATE: TIME: . NEUROLOGY: HAVE YOU FALLEN IN THE PAST 6 MONTHS? NO . ANY NEW EXTREMITY NUMBNESS OR WEAKNESS? NO . CARDIOLOGY: DO YOU HAVE A PACEMAKER OR DEFIBRILLATOR? NO . RESPIRATORY: HAVE YOU BEEN SICK IN THE PAST WEEK? NO . FEVER NO . FLU LIKE SYMPTOMS? NO . COUGH NO . INTEGUMENTARY: DO YOU HAVE ANY RASHES OR OPEN SORES? NO . ALLERGIC/IMMUNO: ARE YOU ALLERGIC TO SHELLFISH OR IV DYE? NO . ANY NEW ALLERGIES? NO . PSYCHIATRIC: DO YOU HAVE THOUGHTS OF HURTING YOURSELF OR SOMEONE ELSE? NO . ARE YOU ABUSED, NEGLECTED, OR IN AN UNSAFE ENVIRONMENT? NO . ENDOCRINOLOGY: ARE YOU DIABETIC? NO . OTHER: DO YOU NEED ANY PRESCRIPTIONS? NO . IF YES, PLEASE LIST: ____ . ANY NEW PROBLEMS WITH YOUR MEDICATIONS? NO . WHEN DID YOU LAST EAT? ____ . WHEN DID YOU LAST DRINK? ____ . WHAT DID YOU LAST DRINK? ____ . NAME OF PERSON DRIVING YOU HOME? ____ . DO YOU HAVE ANY OTHER QUESTIONS OR CONCERNS NO . VITAL SIGNS WT 206 LBS, HT 69 IN, BMI 30.42 INDEX, BP 147/70 MM HG, HR 63 /MIN, RR 18 /MIN, TEMP 96.7 F, OXYGEN SAT % 98%, NA INITIALS SC 09:40, REVIEWED BY: CS. EXAMINATION GENERAL EXAMINATION: GENERAL APPEARANCE:NO ACUTE DISTRESS, WELL NOURISHED AND HYDRATED. PSYCHAPPROPRIATE MOOD AND AFFECT . FACE:UNREMARKABLE. MUSCULOSKELETAL:NORMAL RANGE OF MOTION. SKIN:NORMAL, NO RASH. 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 RECOMMEND REMOVING ALL THROW RUGS. 2. RECOMMEND NIGHT LIGHTS 3. RECOMMEND WEARING RUBBER SOLED SHOES AND TO NOT GO BAREFOOT. 4.. ADVISED TO CHANGE POSITION SLOWLY FROM SUPINE TO STANDING TO AVOID DIZZINESS. 5. ADVISED TO USE ASSISTIVE DEVICE SUCH CANE OR WALKER 6. USE [employer] OR KEEP PORTABLE PHONE READILY AVAILABLE, #128 - SCREENING BMI AND F/U PLAN IN : BMI ABOVE NORMAL TODAY. DISCUSSED WITH PATIENT NUTRITIONAL FOOD CHOICES TO ASSIST WITH WEIGHT LOSS. RECCOMMENDED REDUCING SALT, SUGAR, SODA INTAKE. RECOMMEND INCREASE ACTIVITY TO INCLUDE WALKING ON A REGULAR BASIS. PROFESSIONAL NUTRITIONAL NUTRITIONAL GUIDANCE WAS OFFERED AND WAS DECLINED. PROCEDURE CODES FA211 ESTABILISHED PATIENT [facility] FACILITY CHARGE G8783 BP SCR PRFRM RCMDD DEFIND SCR INTVL G8730 PAIN ASSESS POS TOOL F/U PLAN DOC 3016F PT SCRND UNHLTHY [place] USE 1123F ACP DISCUSS/DSCN MKR DOCD 1036F TOBACCO NON-USER 0518F FALL PLAN OF CARE DOCD G8427 DOC MEDS VERIFIED W/PT OR RE G8417 BMI >=30 CALCUATE W/FOLLOWUP 3288F FALL RISK ASSESSMENT DOCD DISPOSITION & COMMUNICATION FOLLOW UP 4 MONTHS ELECTRONICALLY SIGNED BY DEE MEDRANO ON 03/17/2017 AT 10:14 AM EDT DISCLAIMER : THIS IS A VISIT SUMMARY EXTRACTED FROM THE [employer] CHART. IT IS NOT A COPY OF THE [employer] PROGRESS NOTE. MTDD
== END ==
LOC: M PAIN 09:40
PROVIDERS: ATTEND Nurse Practitioner Family
DX: G89.29 Other chronic pain (principal); M43.02 Spondylolysis, cervical region; M48.06 Spinal stenosis, lumbar region; E11.9 Type 2 diabetes mellitus without complications; J84.10 Pulmonary fibrosis, unspecified; E78.2 Mixed hyperlipidemia; J30.9 Allergic rhinitis, unspecified; D64.9 Anemia, unspecified; M15.0 Primary generalized (osteo)arthritis; K21.0 Gastro-esophageal reflux disease with esophagitis; F32.9 Major depressive disorder, single episode, unspecified; G25.81 Restless legs syndrome; Z79.82 Long term (current) use of aspirin; Z79.891 Long term (current) use of opiate analgesic; Z79.899 Other long term (current) drug therapy; Z87.891 Personal history of nicotine dependence

== ENCOUNTER → 2017-04-29 | Outpatient (REF) | payer MEDICARE ==
[2017-04-29 13:38] LABS: MEAN CORPUSCULAR HEMOGLOBIN 31.7 pg (27.0-33.0); MEAN CORPUSCULAR HGB CONC 33.3 g/dl (32.0-36.5); MEAN CORPUSCULAR VOLUME 95.2 fl (80.0-96.0); RED CELL DISTRIBUTION WIDTH 12.4 % (11.5-14.5)
[2017-04-29 14:00] LABS: ALBUMIN 4.5 GM/DL (3.2-5.2); ALKALINE PHOSPHATASE 48 U/L (45-117); ALT/SGPT 28 U/L (12-78); ANION GAP 8 MEQ/L (8-16); AST/SGOT 17 U/L (15-37); BILIRUBIN,TOTAL 0.4 MG/DL (0.2-1.0); BLOOD UREA NITROGEN 13 MG/DL (7-18); CALCIUM LEVEL 9.3 MG/DL (8.8-10.2); CARBON DIOXIDE LEVEL 31 MEQ/L (21-32); CHLORIDE LEVEL 97 MEQ/L (98-107); CHOLESTEROL LEVEL 159 MG/DL (<200); CREATININE FOR GFR 0.92 MG/DL (0.70-1.30); GLOMERULAR FILTRATION RATE > 60.0 (>42); GLUCOSE, FASTING 111 MG/DL (83-110); POTASSIUM SERUM 4.6 MEQ/L (3.5-5.1); SODIUM LEVEL 136 MEQ/L (136-145); TRIGLYCERIDES LEVEL 207 MG/DL (<150)
== END ==
LOC: M SFHCADAM 08:16
PROVIDERS: ATTEND Family Medicine
DX: F32.9 Major depressive disorder, single episode, unspecified (principal); E11.9 Type 2 diabetes mellitus without complications; I11.9 Hypertensive heart disease without heart failure

== ENCOUNTER → 2017-10-15 | Outpatient (CLI) | payer OTHER, MEDICARE | LOC: M PAIN 10:15 | DX: M47.817 Spondylosis without myelopathy or radiculopathy, lumbosacral region (principal); M48.061 Spinal stenosis, lumbar region without neurogenic claudication; G89.29 Other chronic pain; E78.5 Hyperlipidemia, unspecified; M79.7 Fibromyalgia; I10 Essential (primary) hypertension; M19.011 Primary osteoarthritis, right shoulder; M19.012 Primary osteoarthritis, left shoulder; K43.9 Ventral hernia without obstruction or gangrene; K21.9 Gastro-esophageal reflux disease without esophagitis; F32.9 Major depressive disorder, single episode, unspecified; G25.81 Restless legs syndrome; G47.33 Obstructive sleep apnea (adult) (pediatric); Z79.899 Other long term (current) drug therapy; Z96.652 Presence of left artificial knee joint; Z87.891 Personal history of nicotine dependence | CPT/HCPCS: G0463 ==

== ENCOUNTER → 2017-11-15 | Outpatient (CLI) | payer OTHER ==
[2017-11-15 14:32] LABS: PSA SCREENING 1.43 NG/ML (< 4.0)
== END ==
LOC: M SMT 09:41
DX: Z12.5 Encounter for screening for malignant neoplasm of prostate (principal)
CPT/HCPCS: G0103

== ENCOUNTER → 2017-11-16 | Outpatient (CLI) | payer OTHER, MEDICARE ==
[~2017-11-16] MED LIST changes: -/MELO7TA PO; -ASTE137S; -AVAP300T PO; +BUPIVACAINE HCL 0.25% 30 ML VIAL As Ordered; -CALC600T7 PO; -FERR325T3 PO; -FISH1000 PO; -INDA2.5T PO; +ISOVUE-M 300 61% 15ML VIAL (Q9967) As Ordered; -LEVO500T PO; +LIDOCAINE 1% SDV INJ 30 ML VIAL As Ordered; -LORTTAB5 PO; -METR500T10 PO; +MIDAZOLAM INJ 2 MG/2 ML VIAL (J2250) As Ordered; -MULTCAP PO; -OMEP40CA2 PO; +PROPOFOL 200 MG/20 ML VIAL As Ordered; -ROPI0.25 PO; -TRAZ50TA2 PO; +TRIAMCINOLONE ACETONIDE SUSP 40 MG/ML VIAL (J3301) As Ordered; -TYLE325T5 PO; -VITA100087 PO; -VITA250L PO; -VITA500C24 PO; -VITAD1000T PO; -ZOCO20TA PO; -[UNRECOGNIZED DRUG - CODE] PO; +fentaNYL 100 MCG/2 ML INJECTION (J3010) As Ordered
== END | disposition home or self-care (01) ==
LOC: M PAIN 14:00
DX: G89.29 Other chronic pain (principal); M47.816 Spondylosis without myelopathy or radiculopathy, lumbar region; M47.817 Spondylosis without myelopathy or radiculopathy, lumbosacral region; E11.9 Type 2 diabetes mellitus without complications; E78.5 Hyperlipidemia, unspecified; M79.7 Fibromyalgia; G47.33 Obstructive sleep apnea (adult) (pediatric); I10 Essential (primary) hypertension; J84.10 Pulmonary fibrosis, unspecified; K21.9 Gastro-esophageal reflux disease without esophagitis; M19.011 Primary osteoarthritis, right shoulder; M19.012 Primary osteoarthritis, left shoulder; K43.9 Ventral hernia without obstruction or gangrene; F32.9 Major depressive disorder, single episode, unspecified; G25.81 Restless legs syndrome; Z79.899 Other long term (current) drug therapy; Z79.82 Long term (current) use of aspirin; Z96.652 Presence of left artificial knee joint; Z87.891 Personal history of nicotine dependence
CPT/HCPCS: J3301

== ENCOUNTER → 2017-12-13 | Outpatient (CLI) | payer OTHER, MEDICARE | LOC: M PAIN 14:30 | DX: G89.29 Other chronic pain (principal); M47.817 Spondylosis without myelopathy or radiculopathy, lumbosacral region; M48.061 Spinal stenosis, lumbar region without neurogenic claudication; E11.9 Type 2 diabetes mellitus without complications; E78.5 Hyperlipidemia, unspecified; M79.7 Fibromyalgia; M15.0 Primary generalized (osteo)arthritis; I10 Essential (primary) hypertension; K21.9 Gastro-esophageal reflux disease without esophagitis; F32.9 Major depressive disorder, single episode, unspecified; G25.81 Restless legs syndrome; G47.33 Obstructive sleep apnea (adult) (pediatric); Z79.82 Long term (current) use of aspirin; Z79.899 Other long term (current) drug therapy; Z87.891 Personal history of nicotine dependence; Z96.652 Presence of left artificial knee joint | CPT/HCPCS: G0463 ==

== ENCOUNTER → 2018-04-20 | Outpatient (REF) | payer OTHER, MEDICARE ==
[2018-04-20 12:55] LABS: ALBUMIN 4.4 GM/DL (3.2-5.2); ALBUMIN/GLOBULIN RATIO 1.63 (1.00-1.93); ALKALINE PHOSPHATASE 48 U/L (45-117); ALT/SGPT 34 U/L (12-78); ANION GAP 9 MEQ/L (8-16); AST/SGOT 28 U/L (7-37); BILIRUBIN,TOTAL 0.3 MG/DL (0.2-1.0); BLOOD UREA NITROGEN 12 MG/DL (7-18); CALCIUM LEVEL 9.5 MG/DL (8.8-10.2); CARBON DIOXIDE LEVEL 30 MEQ/L (21-32); CHLORIDE LEVEL 101 MEQ/L (98-107); CREATININE FOR GFR 0.97 MG/DL (0.70-1.30); GLOMERULAR FILTRATION RATE > 60.0 (>42); GLUCOSE, FASTING 114 MG/DL (70-100); POTASSIUM SERUM 4.8 MEQ/L (3.5-5.1); SODIUM LEVEL 140 MEQ/L (136-145); TOTAL PROTEIN 7.1 GM/DL (6.4-8.2)
[2018-04-20 13:10] LABS: ESTIMATED AVERAGE GLUCOSE 146 MG/DL (60-110); HEMOGLOBIN A1c 6.7 %
[2018-04-20 13:27] LABS: MALB URINE SIEMENS 19.9 MG/L; MAU/CREAT RATIO 8.1 MCG/MG (0.0-30.0)
== END ==
LOC: M SFHCADAM 08:07
DX: I11.9 Hypertensive heart disease without heart failure (principal); E11.9 Type 2 diabetes mellitus without complications
CPT/HCPCS: 80053

== ENCOUNTER → 2018-10-27 | Outpatient (REF) | payer MEDICARE ==
[~2018-10-27] MED LIST changes: +ASTE137S; +AVAP300T PO; -BUPIVACAINE HCL 0.25% 30 ML VIAL As Ordered; +CALC600T7 PO; +FERR325T3 PO; +FISH1000 PO; +INDA2.5T PO; -ISOVUE-M 300 61% 15ML VIAL (Q9967) As Ordered; +LEVO500T PO; -LIDOCAINE 1% SDV INJ 30 ML VIAL As Ordered; +LORTTAB5 PO; +METR500T10 PO; -MIDAZOLAM INJ 2 MG/2 ML VIAL (J2250) As Ordered; +MOBI4TAB PO; +MULTCAP PO; +OMEP40CA2 PO; -PROPOFOL 200 MG/20 ML VIAL As Ordered; +ROPI0.25 PO; +TRAZ50TA2 PO; -TRIAMCINOLONE ACETONIDE SUSP 40 MG/ML VIAL (J3301) As Ordered; +TYLE325T5 PO; +VITA100087 PO; +VITA250L PO; +VITA500C24 PO; +VITAD1000T PO; +ZOCO20TA PO; +[UNRECOGNIZED DRUG - CODE] PO; -fentaNYL 100 MCG/2 ML INJECTION (J3010) As Ordered
[2018-10-27 12:35] LABS: HEMATOCRIT 42.3 % (42.0-52.0); MEAN CORPUSCULAR HEMOGLOBIN 31.7 pg (27.0-33.0); MEAN CORPUSCULAR HGB CONC 33.1 g/dl (32.0-36.5); MEAN CORPUSCULAR VOLUME 95.7 fl (80.0-96.0); PLATELET COUNT, AUTOMATED 289 10^3/uL (150-450); RED BLOOD COUNT 4.42 10^6/uL (4.30-6.10)
[2018-10-27 12:48] LABS: ALBUMIN 4.5 GM/DL (3.2-5.2); ALT/SGPT 44 U/L (12-78); BILIRUBIN,TOTAL 0.4 MG/DL (0.2-1.0); BLOOD UREA NITROGEN 16 MG/DL (7-18); CALCIUM LEVEL 9.4 MG/DL (8.8-10.2); CARBON DIOXIDE LEVEL 30 MEQ/L (21-32); CHLORIDE LEVEL 101 MEQ/L (98-107); CHOLESTEROL LEVEL 165 MG/DL (<200); CREATININE FOR GFR 0.91 MG/DL (0.70-1.30); FREE T4 0.97 NG/DL (0.76-1.46); GLOMERULAR FILTRATION RATE > 60.0 (>42); GLUCOSE, FASTING 115 MG/DL (70-100); HDL CHOLESTEROL 47 MG/DL (>40); LDL CHOLESTEROL 80 MG/DL (<100); NON-HDL-C 118 MG/DL; POTASSIUM SERUM 4.7 MEQ/L (3.5-5.1); SODIUM LEVEL 137 MEQ/L (136-145); TOTAL PROTEIN 7.2 GM/DL (6.4-8.2); TRIGLYCERIDES LEVEL 189 MG/DL (<150)
[2018-10-27 12:59] LABS: HEMOGLOBIN A1c 7.1 %
== END ==
LOC: M SFHCADAM 08:58
PROVIDERS: ATTEND Family Medicine
DX: I11.9 Hypertensive heart disease without heart failure (principal); E11.9 Type 2 diabetes mellitus without complications; F32.9 Major depressive disorder, single episode, unspecified; E78.2 Mixed hyperlipidemia; D64.9 Anemia, unspecified
CPT/HCPCS: 80053; 80061; 83036; 84439; 84443; 85027; G0463

== ENCOUNTER → 2018-11-22 | Outpatient (CLI) | payer MEDICARE | LOC: M SMT 08:22 | PROVIDERS: ATTEND Urology | DX: Z12.5 Encounter for screening for malignant neoplasm of prostate (principal) | CPT/HCPCS: 36415; G0103 ==

== ENCOUNTER → 2019-04-20 | Outpatient (REF) | payer MEDICARE ==
[2019-04-20 13:16] LABS: BLOOD UREA NITROGEN 16 MG/DL (7-18); CALCIUM LEVEL 9.7 MG/DL (8.8-10.2); CARBON DIOXIDE LEVEL 31 MEQ/L (21-32); CHLORIDE LEVEL 100 MEQ/L (98-107); GLOMERULAR FILTRATION RATE > 60.0 (>42); GLUCOSE, FASTING 123 MG/DL (70-100); POTASSIUM SERUM 4.2 MEQ/L (3.5-5.1); SODIUM LEVEL 140 MEQ/L (136-145)
[2019-04-20 14:11] LABS: HEMOGLOBIN A1c 6.9 %
== END ==
LOC: M SFHCADAM 07:50
PROVIDERS: ATTEND Family Medicine
DX: E11.9 Type 2 diabetes mellitus without complications (principal); I11.9 Hypertensive heart disease without heart failure

== ENCOUNTER → 2019-10-12 | Outpatient (REF) | payer MEDICARE ==
[2019-10-12 10:42] LABS: HEMATOCRIT 41.9 % (42.0-52.0); HEMOGLOBIN 14.4 g/dl (13.5-17.5); MEAN CORPUSCULAR HEMOGLOBIN 32.7 pg (27.0-33.0); MEAN CORPUSCULAR HGB CONC 34.4 g/dl (32.0-36.5); MEAN CORPUSCULAR VOLUME 95.2 fl (80.0-96.0); PLATELET COUNT, AUTOMATED 298 10^3/uL (150-450); WHITE BLOOD COUNT 7.9 10^3/uL (4.0-10.0)
[2019-10-12 10:59] LABS: ALBUMIN 4.4 GM/DL (3.2-5.2); ALT/SGPT 52 U/L (12-78); BILIRUBIN,TOTAL 0.8 MG/DL (0.2-1.0); BLOOD UREA NITROGEN 10 MG/DL (7-18); CALCIUM LEVEL 9.7 MG/DL (8.8-10.2); CARBON DIOXIDE LEVEL 31 MEQ/L (21-32); CHLORIDE LEVEL 98 MEQ/L (98-107); CHOLESTEROL LEVEL 170 MG/DL (<200); CREATININE FOR GFR 0.87 MG/DL (0.70-1.30); GLOMERULAR FILTRATION RATE > 60.0 (>35); GLUCOSE, FASTING 122 MG/DL (70-100); HDL CHOLESTEROL 40 MG/DL (>40); LDL CHOLESTEROL 74 MG/DL (<100); NON-HDL-C 130 MG/DL; POTASSIUM SERUM 4.6 MEQ/L (3.5-5.1); SODIUM LEVEL 134 MEQ/L (136-145); TOTAL PROTEIN 7.5 GM/DL (6.4-8.2); TRIGLYCERIDES LEVEL 278 MG/DL (<150)
[2019-10-12 11:10] LABS: HEMOGLOBIN A1c 7.6 %
[2019-10-12 11:22] LABS: CREATININE, URINE 43.2 MG/DL; MALB URINE SIEMENS < 5.0 MG/L; MAU/CREAT RATIO 11.5 MCG/MG (0.0-30.0)
== END ==
LOC: M SFHCADAM 08:14
PROVIDERS: ATTEND Family Medicine
DX: D64.9 Anemia, unspecified (principal); I11.9 Hypertensive heart disease without heart failure; E11.9 Type 2 diabetes mellitus without complications; E78.2 Mixed hyperlipidemia

== ENCOUNTER → 2019-11-14 | Outpatient (REF) | payer MEDICARE | LOC: M LABSMT 09:00 | PROVIDERS: ATTEND Urology | DX: Z12.5 Encounter for screening for malignant neoplasm of prostate (principal) ==

== ENCOUNTER → 2020-03-13 | Outpatient (REF) | payer MEDICARE ==
[2020-03-13 14:27] LABS: HEMATOCRIT 40.4 % (42.0-52.0); HEMOGLOBIN 13.5 g/dl (13.5-17.5); MEAN CORPUSCULAR HEMOGLOBIN 31.9 pg (27.0-33.0); MEAN CORPUSCULAR HGB CONC 33.4 g/dl (32.0-36.5); MEAN CORPUSCULAR VOLUME 95.5 fl (80.0-96.0); PLATELET COUNT, AUTOMATED 314 10^3/uL (150-450); RED BLOOD COUNT 4.23 10^6/uL (4.30-6.10)
[2020-03-13 15:03] LABS: ALBUMIN 4.2 GM/DL (3.2-5.2); ALT/SGPT 41 U/L (12-78); BILIRUBIN,TOTAL 0.3 MG/DL (0.2-1.0); BLOOD UREA NITROGEN 12 MG/DL (7-18); CALCIUM LEVEL 9.6 MG/DL (8.8-10.2); CARBON DIOXIDE LEVEL 33 MEQ/L (21-32); CHLORIDE LEVEL 98 MEQ/L (98-107); CREATININE FOR GFR 0.92 MG/DL (0.70-1.30); FERRITIN 394 NG/ML (26-388); GLOMERULAR FILTRATION RATE > 60.0 (>35); GLUCOSE, FASTING 143 MG/DL (70-100); IRON (FE) 81 UG/DL (65-175); POTASSIUM SERUM 4.3 MEQ/L (3.5-5.1); SODIUM LEVEL 134 MEQ/L (136-145); TOTAL IRON BINDING CAPACITY 261 UG/DL (250-450); TOTAL PROTEIN 7.1 GM/DL (6.4-8.2)
== END ==
LOC: M LABDRWAD 13:11
PROVIDERS: ATTEND Family Medicine
DX: D50.9 Iron deficiency anemia, unspecified (principal); E11.9 Type 2 diabetes mellitus without complications

== ENCOUNTER → 2020-05-17 | Outpatient (CLI) | payer MEDICARE | LOC: M PAIN 10:00 | PROVIDERS: ATTEND Nurse Practitioner Family | DX: Z53.21 Procedure and treatment not carried out due to patient leaving prior to being seen by health care provider (principal) ==

== ENCOUNTER → 2020-05-21 | Outpatient (CLI) | payer MEDICARE ==
--- NOTE | 2020-05-22 23:09 | ECWPNPC ---
PATIENT NAME: CHRISSIE SANFORD : 1940 GENDER: MALE VISIT DATE: 05/21/2020 DISCHARGE DATE: 05/21/20 1145 VISIT LOCKED DATE TIME: PHYSICIAN: ARABELLA YBARRA PHYSICIAN PAGER NO: ACTIVE RESOURCE: AARBELLA YBARRA REASON FOR APPOINTMENT 1. BACK PAIN HISTORY OF PRESENT ILLNESS GENERAL: 79-YEAR-OLD GENTLEMAN HERE PER REFERRAL OF [facility] TO EVALUATE CHRONIC LOW BACK PAIN. PATIENT IS KNOWN TO OUR PRACTICE WITH LAST VISIT BEING A FEW YEARS AGO. HE WAS FOLLOWING WITH [facility] FOR THE PAST YEAR BUT STATES THEY DID NOT RECOMMEND ANY SURGERY AND REFERRED TO US. CHIEF AREA OF PAIN TODAY IS MIDTHORACIC PARASPINAL AREA. STATES THIS BEGAN TO BOTHER HIM ESPECIALLY WHEN HE USES HIS ARMS ABOUT ONE MONTH AGO. DENIES PRECIPITATING EVENT BUT STATES THAT HE WAS INJURED AT WORK IN THIS AREA MANY YEARS AGO. SINCE THIS IS A NEW AREA OF PAIN I INFORMED HIM THAT DR. HEREDIA HAS TO LOOK AT THIS COMPLAINT. HE STATES THAT PAIN RADIATES AROUND THE INTERCOSTAL AREA ANTERIORLY WHEN IT IS SEVERE. HE HAS AN APPOINTMENT WITH DR. HEREDIA NEXT WEEK AND WILL TALK WITH HIM ABOUT NEW ONSET OF THORACIC BACK PAIN. WE WILL CONCENTRATE ON HIS CHRONIC LOW BACK PAIN. THIS IS NONRADICULAR IN NATURE. REVIEWED MRI OF THE LS-SPINE DONE IN 2019. NO SIGNIFICANT CHANGES. SHOWING ARTHRITIC CHANGES THAT ARE STABLE COMPARED TO PREVIOUS STUDIES. DISCUSSED TREATMENT OPTIONS FOR LUMBAR PAIN-CHRONIC. DENIES RECENT WEIGHT CHANGES OR ILLNESS. REPORTING NORMAL BOWEL AND BLADDER FUNCTION.- - -. FALL RISK SCREENING: SCREENING :NO FALLS REPORTED IN THE LAST YEAR PAIN SCREENING: PATIENT HAS A COMPLAINT OF ACUTE OR CHRONIC PAIN :YES LOCATION OF PAIN: LOW BACK, UPPER BACK INTENSITY OF PAIN (SCALE OF 1 TO 10):5 WHAT DOES YOUR PAIN FEEL LIKE:OTHER DULL ACHE DURATION:CONSTANT, RHYTHMIC PAIN IS INCREASED BY:ACTIVITIES, PROLONGED STANDING PLAN/GOALS/TREATMENT/INTERVENTION/FOLLOW UP:SEE PLAN NURSING NOTE: - - -. PAIN CENTER INTAKE QUESTIONS: DO YOU HAVE A HISTORY OF MRSA? :NO DO YOU TAKE A BLOOD THINNERS? :NO DO YOU HAVE ANY BLEEDING DISORDERS? :NO ANY NEW NUMBNESS OR WEAKNESS IN YOUR LEGS OR ARMS? :NO ANY PACEMAKER,DEFIBRILLATOR, OR DORSAL COLUMN STIMULATOR? :NO DO YOU HAVE ANY RASHES OR OPEN SORES? :NO ARE YOU ALLERGIC TO IV DYE? :NO ARE YOU DIABETIC? :YES HIGH A1C, MIGHT BE REQUIRING GLUCOSE SCREENING ANY NEW PROBLEMS WITH YOUR MEDICATIONS? :NO HAVE YOU RECEIVED A VACCINE IN THE PAST 30 DAYS? :NO DO YOU PLAN TO RECEIVE A VACCINE IN THE NEXT 21 DAYS? :NO DO YOU NEED ANY PRESCRIPTION? :NO DO YOU TAKE ANY IMMUNOSUPPRESSIVE MEDICATIONS? :NO CURRENT MEDICATIONS TAKING FISH OIL 1000 MG OTC 1 CAPSULE ORALLY ONCE A DAY TAKING MULTIVITAMINS OTC TABLET 1 TAB ORALLY ONCE A DAY TAKING VITAMIN D 1000 UNIT OTC 1 TABLET ORALLY ONCE A DAY TAKING SELENIUM 200 MCG OTC 1 TAB ORALLY ONCE A DAY TAKING CALCIUM 600 + D 600-200 MG-UNIT OTC 2 TABLETS ORALLY ONCE A DAY TAKING VITAMIN C 500 MG OTC 1 TABLET ORALLY ONCE A DAY TAKING VITAMIN A 8000 UNIT OTC 1 CAPSULE ORALLY ONCE A DAY TAKING ASPIR-81 81 MG TABLET DELAYED RELEASE 1 TABLET ORALLY ONCE A DAY TAKING MAGNESIUM 400 MG CAPSULE 1 TAB ORALLY DAILY TAKING VITAMIN B COMPLEX - TABLET DIRECTED ORALLY TAKING MELOXICAM 7.5 MG TABLET TAKE ONE TABLET BY MOUTH TWICE A DAY NEEDED MAXIMUM DAILY DOSE = 2 TABLETS TAKING SIMVASTATIN 20 MG TABLET TAKE ONE TABLET BY MOUTH EVERY EVENING TAKING FERROUS SULFATE 325 (65 FE) MG TABLET 1 TABLET ORALLY ONCE OR TWICE A WEEK AT MOST TAKING FLUTICASONE PROPIONATE 50 MCG/ACT SUSPENSION 1 SPRAY IN EACH NOSTRIL NASALLY ONCE A DAY AT BED TIME TAKING OXYBUTYNIN CHLORIDE 5 MG TABLET 1 TABLET ORALLY TWICE A DAY TAKING IRBESARTAN 300 MG TABLET 1 TABLET ORALLY ONCE A DAY TAKING INDAPAMIDE 2.5 MG TABLET TAKE ONE TABLET BY MOUTH EVERY MORNING TAKING TRAZODONE HCL 50 MG TABLET TAKE ONE TABLET BY MOUTH AT BEDTIME TAKING OMEPRAZOLE 40 MG CAPSULE DELAYED RELEASE 1 CAPSULE ORALLY TWICE DAILY TAKING CINNAMON 500 MG CAPSULE DIRECTED ORALLY 2 TABS TAKING TURMERIC NOT-TAKING AMOXICILLIN-POT CLAVULANATE 875-125 MG TABLET 1 TABLET ORALLY EVERY 12 HRS MEDICATION LIST REVIEWED AND RECONCILED WITH THE PATIENT PAST MEDICAL HISTORY TYPE 2 DM-- DIETARY CONTROL HYPERLIPIDEMIA FIBROMYALGIA--DISABLED ALLERGIES BPH GENERALIZED OA NEGATIVE CATH NO CAD; NORMAL STRESS ECHO 12/23 (EF 60%); STRESS ECHO 04/27 UNCHANGED HYPERTENSION PULMONARY FIBROSIS COLON POLYP 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 FROM [place]) RESTLESS LEG SYNDROME ZOEY ON CPAP PER PULMONARY HAD NCS DONE AT [facility], NO RECORDS SENT VASC SX EVALUATION 04/26 DR SHULTZ--NORMAL LOWER EXT CIRCULATION ALLERGIES N.K.D.A. SURGICAL HISTORY SPURS ON LEFT FOOT BY 1996 & [address] ARTHROSCOPIC SURGERY DR. LAYTON 2003 & 2008 LEFT KNEE TOTAL KNEE REPLACEMENT [facility] CASON 01/2010 COLONOSCOPIES--ADENOMATOUS POLYPS 11/25; NL COLO 03/24, 2013, 01/23, 12/27 2001,2004,2007,2008, 03/25, 01/23, RT SHOULDER SX DR CASON SOS 04/2010 EGD - [facility]--[place] 03/24 02/19, 03/24 GALL BLADDER REMOVAL 11/2012 STEROID INJECTION ( SOS, [facility]) 11/24 RIGHT KNEE REPAIR, PARTIAL REPLACEMENT 09/14/17 RIGHT SHOULDER ARTHROSCOPY 03/10/2019 FAMILY HISTORY FATHER: DIABETES, TYPE II, DIAGNOSED WITH DIABETES MOTHER: COLON CARCINOMA, OTHER MALIGNANT NEOPLASM OF UNSPECIFIED SITE SIBLINGS: COLON CARCINOMA, PROSTATE CA, SISTER WITH THYROID CANCER, OTHER MALIGNANT NEOPLASM OF UNSPECIFIED SITE 2 SON(S) , 1 DAUGHTER(S) . DENIES FAMILY HISTORY OF MM. SOCIAL HISTORY GENERAL: TOBACCO USE ARE YOU A:FORMER SMOKER HOW LONG HAS IT BEEN SINCE YOU LAST SMOKED?> 10 YEARS LATEX QUESTIONNAIRE LATEX ALLERGY : HAVE YOU EVER DEVELOPED ANY TYPE OF REACTION AFTER HANDLING LATEX PRODUCTS SUCH RUBBER GLOVES, CONDOMS, DIAPHRAGMS, BALLOONS, SOCKS, OR UNDERWEAR?NO LATEX ALLERGY : HAVE YOU EVER DEVELOPED ANY TYPE OF REACTION DURING OR AFTER DENTAL APPOINTMENT, VAGINAL/RECTAL EXAMINATION, SURGICAL PROCEDURE, OR ANY OTHER EXPOSURE?NO DATE ASKED : 05/16/2020 LATEX RISK : HAVE YOU EVER HAD ANY DIFFICULTY BREATHING OR HIVES AFTER EATING OR HANDLING ANY FRUITS, OR VEGETABLES; SUCH KIWI, BANANAS, STONE FRUITS, OR CHESTNUTSNO LATEX RISK : DO YOU HAVE A PREVIOUS PERSONAL HISTORY OF MORE THAN NINE SURGERIES, SPINA BIFIDA, OR REPEATED CATHERIZATIONS? NO LATEX RISK : ARE YOU FREQUENTLY EXPOSED TO LATEX PRODUCTS IN YOUR OCCUPATION?NO BMI CARE GOAL FOLLOW-UP ABOVE NORMAL BMI FOLLOW-UPLIFESTYLE EDUCATION REGARDING DIET ALCOHOL SCREENING DID YOU HAVE A DRINK CONTAINING ALCOHOL IN THE PAST YEAR?NO POINTS0 INTERPRETATIONNEGATIVE RECREATIONAL DRUG USE DRUG USE?NO CAFFEINE CAFFEINE USE?YES HOW OFTEN AND HOW MUCH? COFFEE 2 CUPS DAILY SEXUAL HX HAD SEX IN THE LAST 12 MONTHS (VAGINAL, ORAL, OR ANAL)?NO HAVE YOU EVER HAD AN STD?NO SABIANISM [id number] ROMAN CATHOLIC NO MOSQUE BELIEFS THAT WOULD IMPACT HEALTH CARE. LANGUAGE LANGUAGES SPOKEN:ALBANIAN LEARNING BARRIERS / SPECIAL NEEDS CHANGE FROM LAST VISIT?NO BARRIERS TO LEARNING?NO HEARING IMPAIRED?YES VISION IMPAIRED?YES COGNITIVELY IMPAIRED?NO :HEARING AIDES B/L :CORRECTIVE LENSES READINESS TO LEARN?YES LEARNING PREFERENCES?NO LEARNING CAPABILITIES PRESENT?YES EMOTIONAL BARRIERS?NO SPECIAL DEVICES?NO MOLD FILLING OPERATOR NEEDED?NO DOMESTIC VIOLENCE DO YOU FEEL SAFE IN YOUR ENVIRONMENT?YES DIET: REGULAR. MARITAL STATUS: . OTHERS AT HOME: SPOUSE. PAIN CLINIC PFS, CLERGY, PUBLIC HEALTH REFERRALS PFS REFERRAL NEEDED?NO CLERGY REFERRAL NEEDED?NO PUBLIC HEALTH REFERRAL NEEDED?NO WAS THE PROVIDER NOTIFIED OF ANY PERTINENT INFO?NO N/A HAS THE PATIENT BEEN EDUCATED REGARDING HIS/HER PLAN OF CARE?YES HAS THE PATIENT BEEN EDUCATED REGARDING PAIN, THE RISK FOR PAIN, THE IMPORTANCE OF EFFECTIVE PAIN MANAGEMENT, AND THE PAIN ASSESSMENT PROCESS?YES ADVANCE DIRECTIVE ADVANCE DIRECTIVE DISCUSSED WITH PATIENT:YES HCP DEANNA [phone] POA DEANNA LIVING WILL NO DOCUMENTATION WITH HIM HOSPITALIZATION/MAJOR DIAGNOSTIC PROCEDURE SURGERY RELATED REVIEW OF SYSTEMS CONSTITUTIONAL: ANY RECENT FEVER NO . CHILLS NO . WEIGHT CHANGE OF UNKNOWN REASONS NO . GASTROENTEROLOGY: NEW UNEXPLAINABLE CHANGES IN BOWEL CONTROL NO . CONSTIPATION NO . GENITOURINARY: ANY NEW CHANGE IN BLADDER CONTROL? NO . NEUROLOGY: NEW ONSET DIZZINESS OR NEUROLOGICAL CHANGES NOT MENTIONED NO . NEW NUMBNESS OR PAIN PATTERNS NOT MENTIONED AND PERTINENT TO TODAY'S VISIT NO . CARDIOLOGY: NEW CHEST PRESSURE NO . NEW CHEST PAIN NO . RESPIRATORY: UNEXPLAINABLE COUGH NO . NEW SHORTNESS OF BREATH NO . VITAL SIGNS WT 214.8 LBS, HT 69 IN, BMI 31.72 INDEX, BP 148/65 MM HG, HR 64 /MIN, RR 18 /MIN, TEMP 97.3 F, OXYGEN SAT % 98%, SAFE IN ENV? (Y/N) YES, NA INITIALS VT 10:59, REVIEWED BY: MTM. MERCADO CERTIFIED RESIDENTIAL MEDICATION AIDE. EXAMINATION GENERAL EXAMINATION: GENERAL AWAKE,ALERT ,PLEAASANT . PSYCH AFFECT NORMAL . FACE:UNREMARKABLE. NECK:NO LYMPHADENOPATHY, . LUNGS: LUNG STAHL ARE CLEAR TO AUSCULTATION BILATERALLY. GOOD MOVEMENT OF AIR . HEART: S1, S2 IN A REGULAR RATE AND RHYTHM. NO SIGNIFICANT MURMURS, RUBS OR GALLOPS NOTED . LUMBAR:PALPATION:TENDER OVER BILAT. L4/5-L5/S1 LUMBAR FACETS WITH FACET LOADING.. DIAGNOSTIC TESTS REVIEWEDI L/S SPINE 2019 . ASSESSMENTS SPONDYLOSIS OF LUMBOSACRAL REGION WITHOUT MYELOPATHY OR RADICULOPATHY - M47.817 (PRIMARY) TREATMENT SPONDYLOSIS OF LUMBOSACRAL REGION WITHOUT MYELOPATHY OR RADICULOPATHY NOTES: BILATERAL L4-5, L5-S1 THERAPEUTIC LUMBAR FACET BLOCK. 05/21/20 1140 REVIEWED BILATERAL LUMBAR FACET BLOCK WITH PATIENT, USING SPINE MODEL IN EXAM ROOM, REVIEWED PRE PROCEDURE INSTRUCTIONS WITH PATIENT. PATIENT REPORTS FOLLOW UP WITH PRIMARY CARE PROVIDER NEXT WEEK AND ADVISED PATIENT IF STARTED ON ANYTHING FOR GLYCEMIC CONTROL NOT TO TAKE DAY OF PROCEDURE DUE TO NPO STATUS. PATIENT VERBALIZES UNDERSTANDING. Mindi MERCADO RN BSN. OTHERS NOTES: FACET JOINT INJECTION MATERIAL WAS PRINTED. PROCEDURE CODES FA211 ESTABILISHED PATIENT [facility] CHARGE DISPOSITION & COMMUNICATION FOLLOW UP POST PROCEDURE (REASON: BILATERAL L4-5, L5-S1 THERAPEUTIC LUMBAR FACET BLOCK) ELECTRONICALLY SIGNED BY DEE GARCIA ON 05/22/2020 AT 12:56 PM EST DISCLAIMER : THIS IS A VISIT SUMMARY EXTRACTED FROM THE [employer] [facility] CHART. IT IS NOT A COPY OF THE [employer] PROGRESS NOTE. JERONIMO
== END ==
LOC: M PAIN 11:00
PROVIDERS: ATTEND Nurse Practitioner Family
DX: M47.817 Spondylosis without myelopathy or radiculopathy, lumbosacral region (principal); G89.29 Other chronic pain; E11.9 Type 2 diabetes mellitus without complications; M79.7 Fibromyalgia; I10 Essential (primary) hypertension; D50.9 Iron deficiency anemia, unspecified; K21.9 Gastro-esophageal reflux disease without esophagitis; G25.81 Restless legs syndrome; G47.33 Obstructive sleep apnea (adult) (pediatric); Z86.59 Personal history of other mental and behavioral disorders; Z96.652 Presence of left artificial knee joint; Z87.891 Personal history of nicotine dependence; Z79.82 Long term (current) use of aspirin; Z79.899 Other long term (current) drug therapy

== ENCOUNTER → 2020-05-22 | Outpatient (REF) | payer MEDICARE ==
[2020-05-22 13:13] LABS: BLOOD UREA NITROGEN 10 MG/DL (7-18); CALCIUM LEVEL 9.7 MG/DL (8.8-10.2); CARBON DIOXIDE LEVEL 30 MEQ/L (21-32); CHLORIDE LEVEL 97 MEQ/L (98-107); GLOMERULAR FILTRATION RATE > 60.0 (>35); GLUCOSE, FASTING 113 MG/DL (70-100); POTASSIUM SERUM 4.2 MEQ/L (3.5-5.1); SODIUM LEVEL 135 MEQ/L (136-145)
[2020-05-22 13:17] LABS: HEMOGLOBIN A1c 6.8 %
== END ==
LOC: M SFHCADAM 07:58
PROVIDERS: ATTEND Family Medicine
DX: E11.9 Type 2 diabetes mellitus without complications (principal)

== ENCOUNTER → 2020-05-29 | Outpatient (CLI) | payer MEDICARE ==
--- NOTE | 2020-05-29 13:17 | REP ---
INDICATION: THORACIC SPINE PAIN. COMPARISON: Chest 10/03/2016. TECHNIQUE: AP and lateral views obtained of the thoracic spine. FINDINGS: There is no compression fracture or malalignment. There is normal thoracic kyphosis. There is moderate diffuse spurring with bridging osteophytes of the midthoracic spine. There is slight disc space narrowing and subchondral sclerosis at virtually all levels. The posterior elements are intact. There is mild curvature toward the left. IMPRESSION: Moderate degenerative changes without compression fracture. <Electronically signed by Nixon Jesus > 05/29/20 3420
== END ==
LOC: M ADAMS 10:13
PROVIDERS: ATTEND Family Medicine
DX: M25.78 Osteophyte, vertebrae (principal); M51.34 Other intervertebral disc degeneration, thoracic region

== ENCOUNTER → 2020-06-14 | Outpatient (CLI) | payer MEDICARE | LOC: M LABSMTC 10:09 | PROVIDERS: ATTEND Anesthesiology | DX: Z20.828 Contact with and (suspected) exposure to other viral communicable diseases (principal) ==

== ENCOUNTER → 2020-06-19 | Outpatient (CLI) | payer MEDICARE ==
[~2020-06-19] MED LIST changes: +BUPIVACAINE HCL 0.25% 30ML VIAL As Ordered ONE; +ISOVUE-M 300 61% 15ML VIAL As Ordered ONE; +LIDOCAINE 1% SDV 30ML VIAL As Ordered ONE; +TRIAMCINOLONE ACETONIDE SUSP 40 MG/ML VIAL (J3301) As Ordered ONE; +diazePAM 5MG TABLET As Ordered ONE; +oxyCODONE 5MG TAB As Ordered ONE
--- NOTE | 2020-06-19 10:42 | REP ---
INDICATION: PAIN. Injection procedure for pain. COMPARISON: None. TECHNIQUE: Four views. 40.0 seconds of fluoroscopy time is reported. FINDINGS: A sequence of 4 last image hold fluoroscopically obtained spot radiograph(s) of the lumbar spine document(s) needle position(s) and contrast injection associated with injection procedure. IMPRESSION: Procedural imaging. <Electronically signed by Mahesh Fan > 06/19/20 1038
--- NOTE | 2020-06-20 01:45 | ECWPNPC ---
PATIENT NAME: CHRISSIE SANFORD : 1940 GENDER: MALE VISIT DATE: 06/19/2020 DISCHARGE DATE: 06/19/20 1100 VISIT LOCKED DATE TIME: PHYSICIAN: CONSTANTINE YANCEY MD PHYSICIAN PAGER NO: ACTIVE RESOURCE: CONSTANTINE YANCEY MD REASON FOR APPOINTMENT 1. BILATERAL THERAPEUTIC FACET BLOCK LUMBAR L4-5, L5-S1 HISTORY OF PRESENT ILLNESS GENERAL: -. FALL RISK SCREENING: SCREENING :NO FALLS REPORTED IN THE LAST YEAR PAIN SCREENING: PATIENT HAS A COMPLAINT OF ACUTE OR CHRONIC PAIN :YES LOCATION OF PAIN:LOW BACK INTENSITY OF PAIN (SCALE OF 1 TO 10):6 WHAT DOES YOUR PAIN FEEL LIKE:ACHING, CONTINOUS DURATION:CONTINOUS, CONSTANT PAIN IS INCREASED BY:ACTIVITIES, PROLONGED STANDING PAIN IS DECREASED BY:USE OF PAIN MEDICATIONS NURSING NOTE: -. PAIN CENTER INTAKE QUESTIONS: DO YOU HAVE A HISTORY OF MRSA? :NO DO YOU TAKE A BLOOD THINNERS? :NO DO YOU HAVE ANY BLEEDING DISORDERS? :NO ANY NEW NUMBNESS OR WEAKNESS IN YOUR LEGS OR ARMS? :NO ANY PACEMAKER,DEFIBRILLATOR, OR DORSAL COLUMN STIMULATOR? :NO DO YOU HAVE ANY RASHES OR OPEN SORES? :NO ARE YOU ALLERGIC TO IV DYE? :NO ARE YOU DIABETIC? :NO ANY NEW PROBLEMS WITH YOUR MEDICATIONS? :NO HAVE YOU RECEIVED A VACCINE IN THE PAST 30 DAYS? :NO DO YOU PLAN TO RECEIVE A VACCINE IN THE NEXT 21 DAYS? :NO DO YOU TAKE ANY IMMUNOSUPPRESSIVE MEDICATIONS? :NO ANY HISTORY OF SEIZURES? :NO ANY HISTORY OF CARDIAC ISSUES OR EVENTS? :NO DO YOU HAVE SLEEP APNEA? :YES DO YOU WEAR A CPAP?YES ANY RECENT HEAD INJURY? :NO DO YOU HAVE ANY NEW INFECTIONS? :NO IS THERE A CHANCE YOU COULD BE ? :NO ARE YOU BREAST FEEDING? :NO WHEN DID YOU LAST EAT? : -06/19 200 WHEN DID YOU LAST DRINK? : -06/19 200 WHAT DID YOU LAST DRINK? : -WATER NAME OF PERSON DRIVING YOU HOME? : -DAUGHTER-KONRAD DO YOU HAVE ANY OTHER QUESTIONS OR CONCERNS? : - CURRENT MEDICATIONS TAKING FISH OIL 1000 MG OTC 1 CAPSULE ORALLY ONCE A DAY, NOTES: 06/19 200 TAKING MULTIVITAMINS OTC TABLET 1 TAB ORALLY ONCE A DAY, NOTES: 06/19 200 TAKING VITAMIN D 1000 UNIT OTC 1 TABLET ORALLY ONCE A DAY, NOTES: 06/18 TAKING SELENIUM 200 MCG OTC 1 TAB ORALLY ONCE A DAY, NOTES: 06/18 TAKING CALCIUM 600 + D 600-200 MG-UNIT OTC 2 TABLETS ORALLY ONCE A DAY, NOTES: 06/18 TAKING VITAMIN C 500 MG OTC 1 TABLET ORALLY ONCE A DAY, NOTES: 06/19 200 TAKING VITAMIN A 8000 UNIT OTC 1 CAPSULE ORALLY ONCE A DAY, NOTES: 06/19 200 TAKING ASPIR-81 81 MG TABLET DELAYED RELEASE 1 TABLET ORALLY ONCE A DAY, NOTES: 06/18 TAKING MAGNESIUM 400 MG CAPSULE 1 TAB ORALLY DAILY, NOTES: 06/18 TAKING VITAMIN B COMPLEX - TABLET DIRECTED ORALLY , NOTES: 06/19 200 TAKING MELOXICAM 7.5 MG TABLET TAKE ONE TABLET BY MOUTH TWICE A DAY NEEDED MAXIMUM DAILY DOSE = 2 TABLETS , NOTES: 06/19 200 TAKING FLUTICASONE PROPIONATE 50 MCG/ACT SUSPENSION 1 SPRAY IN EACH NOSTRIL NASALLY ONCE A DAY AT BED TIME, NOTES: NONE RECENTLY TAKING IRBESARTAN 300 MG TABLET 1 TABLET ORALLY ONCE A DAY, NOTES: 06/19 200 TAKING INDAPAMIDE 2.5 MG TABLET TAKE ONE TABLET BY MOUTH EVERY MORNING , NOTES: 06/18 TAKING OMEPRAZOLE 40 MG CAPSULE DELAYED RELEASE 1 CAPSULE ORALLY TWICE DAILY, NOTES: 06/19 200 TAKING CINNAMON 500 MG CAPSULE DIRECTED ORALLY 2 TABS TWICE DAILY, NOTES: 06/18 TAKING TURMERIC PO DAILY, NOTES: 06/18 TAKING SIMVASTATIN 20 MG TABLET TAKE ONE TABLET BY MOUTH EVERY EVENING , NOTES: 06/18 TAKING OXYBUTYNIN CHLORIDE 5 MG TABLET 1 TABLET ORALLY TWICE A DAY, NOTES: 06/19 200 TAKING TRAZODONE HCL 50 MG TABLET TAKE ONE TABLET BY MOUTH AT BEDTIME , NOTES: 06/18 NOT-TAKING FERROUS SULFATE 325 (65 FE) MG TABLET 1 TABLET ORALLY ONCE OR TWICE A WEEK AT MOST NOT-TAKING AMOXICILLIN-POT CLAVULANATE 875-125 MG TABLET 1 TABLET ORALLY EVERY 12 HRS MEDICATION LIST REVIEWED AND RECONCILED WITH THE PATIENT PAST MEDICAL HISTORY TYPE 2 DM-- DIETARY CONTROL HYPERLIPIDEMIA FIBROMYALGIA--DISABLED ALLERGIES BPH GENERALIZED OA NEGATIVE CATH NO CAD; NORMAL STRESS ECHO 12/23 (EF 60%); STRESS ECHO 04/27 UNCHANGED HYPERTENSION PULMONARY FIBROSIS COLON POLYP ADENOMATOUS COLONSCOPY 05/13,05/16,10/17,11/17, DDD/C-SPINE XRAY 02/13; HAD MRIS DONE AT [facility] (NO TREPORT), DX WITH CERVICAL AND LUMBAR SPONDYLOSIS; SOS/NYSW INJECTIONS 2014, 2015; [facility] 2017 MILD ANEMIA FROM Q 2 MONTH BLOOD DONATIONS BILATERAL SHOULDER TENDONITIS/ARTHIRITIS VENTRAL HERNIA ERECTILE DYSFUNCTION GERD/SCHATZKI'S RING DEPRESSION XEROSTOMIA (? FROM [place]) RESTLESS LEG SYNDROME ZOEY ON CPAP PER PULMONARY HAD NCS DONE AT [facility], NO RECORDS SENT VASC SX EVALUATION 04/26 DR SHULTZ--NORMAL LOWER EXT CIRCULATION ALLERGIES N.K.D.A. SURGICAL HISTORY SPURS ON LEFT FOOT BY 1996 & [address] ARTHROSCOPIC SURGERY DR. LAYTON 2003 & 2008 LEFT KNEE TOTAL KNEE REPLACEMENT [place] N.[place] DR. CASON 01/2010 COLONOSCOPIES--ADENOMATOUS POLYPS 11/25; NL COLO 03/24, 2013, 01/23, 12/27 2001,2004,2007,2008, 03/25, 01/23, RT SHOULDER SX DR KAMLA SANTOS 04/2010 EGD - [place] [facility]--NL 03/24 02/19, 03/24 GALL BLADDER REMOVAL 11/2012 STEROID INJECTION ( SOS, [place]) 11/24 RIGHT KNEE REPAIR, PARTIAL REPLACEMENT 09/14/17 RIGHT SHOULDER ARTHROSCOPY 03/10/2019 FAMILY HISTORY FATHER: DIABETES, TYPE II, DIAGNOSED WITH DIABETES MOTHER: COLON CARCINOMA, OTHER MALIGNANT NEOPLASM OF UNSPECIFIED SITE SIBLINGS: COLON CARCINOMA, PROSTATE CA, SISTER WITH THYROID CANCER, OTHER MALIGNANT NEOPLASM OF UNSPECIFIED SITE 2 SON(S) , 1 DAUGHTER(S) . DENIES FAMILY HISTORY OF MM. SOCIAL HISTORY GENERAL: TOBACCO USE ARE YOU A:FORMER SMOKER HOW LONG HAS IT BEEN SINCE YOU LAST SMOKED?> 10 YEARS LATEX QUESTIONNAIRE LATEX ALLERGY : HAVE YOU EVER DEVELOPED ANY TYPE OF REACTION AFTER HANDLING LATEX PRODUCTS SUCH RUBBER GLOVES, CONDOMS, DIAPHRAGMS, BALLOONS, SOCKS, OR UNDERWEAR?NO LATEX ALLERGY : HAVE YOU EVER DEVELOPED ANY TYPE OF REACTION DURING OR AFTER DENTAL APPOINTMENT, VAGINAL/RECTAL EXAMINATION, SURGICAL PROCEDURE, OR ANY OTHER EXPOSURE?NO LATEX RISK : HAVE YOU EVER HAD ANY DIFFICULTY BREATHING OR HIVES AFTER EATING OR HANDLING ANY FRUITS, OR VEGETABLES; SUCH KIWI, BANANAS, STONE FRUITS, OR CHESTNUTSNO LATEX RISK : DO YOU HAVE A PREVIOUS PERSONAL HISTORY OF MORE THAN NINE SURGERIES, SPINA BIFIDA, OR REPEATED CATHERIZATIONS? NO LATEX RISK : ARE YOU FREQUENTLY EXPOSED TO LATEX PRODUCTS IN YOUR OCCUPATION?NO DATE ASKED : 06/18/2020 BMI CARE GOAL FOLLOW-UP ABOVE NORMAL BMI FOLLOW-UPLIFESTYLE EDUCATION REGARDING DIET ALCOHOL SCREENING DID YOU HAVE A DRINK CONTAINING ALCOHOL IN THE PAST YEAR?NO POINTS0 INTERPRETATIONNEGATIVE RECREATIONAL DRUG USE DRUG USE?NO CAFFEINE CAFFEINE USE?YES HOW OFTEN AND HOW MUCH? COFFEE 2 CUPS DAILY SEXUAL HX HAD SEX IN THE LAST 12 MONTHS (VAGINAL, ORAL, OR ANAL)?NO HAVE YOU EVER HAD AN STD?NO MORAVIAN [id number] RASTAFARIAN NO ORIENTAL ORTHODOX BELIEFS THAT WOULD IMPACT HEALTH CARE. LANGUAGE LANGUAGES SPOKEN:BELARUSIAN LEARNING BARRIERS / SPECIAL NEEDS CHANGE FROM LAST VISIT?NO BARRIERS TO LEARNING?NO HEARING IMPAIRED?YES :HEARING AIDES B/L VISION IMPAIRED?YES :CORRECTIVE LENSES COGNITIVELY IMPAIRED?NO READINESS TO LEARN?YES LEARNING PREFERENCES?NO LEARNING CAPABILITIES PRESENT?YES EMOTIONAL BARRIERS?NO SPECIAL DEVICES?NO COVER SEAMER NEEDED?NO DOMESTIC VIOLENCE DO YOU FEEL SAFE IN YOUR ENVIRONMENT?YES DIET: REGULAR. MARITAL STATUS: . OTHERS AT HOME: SPOUSE. PAIN CLINIC PFS, CLERGY, PUBLIC HEALTH REFERRALS PFS REFERRAL NEEDED?NO CLERGY REFERRAL NEEDED?NO PUBLIC HEALTH REFERRAL NEEDED?NO WAS THE PROVIDER NOTIFIED OF ANY PERTINENT INFO?NO N/A HAS THE PATIENT BEEN EDUCATED REGARDING HIS/HER PLAN OF CARE?YES HAS THE PATIENT BEEN EDUCATED REGARDING PAIN, THE RISK FOR PAIN, THE IMPORTANCE OF EFFECTIVE PAIN MANAGEMENT, AND THE PAIN ASSESSMENT PROCESS?YES ADVANCE DIRECTIVE ADVANCE DIRECTIVE DISCUSSED WITH PATIENT:YES HCP , DEANNA [phone] POA , DEANNA LIVING WILL NO DOCUMENTATION WITH HIM PAT REVIEWED WITH PATIENT 06/18. HOSPITALIZATION/MAJOR DIAGNOSTIC PROCEDURE SURGERY RELATED VITAL SIGNS WT 215.6 LBS, HT 69 IN, BMI 31.84 INDEX, BP 180/82 MM HG, HR 69 /MIN, RR 18 /MIN, TEMP 97.7 F, OXYGEN SAT % 98%, SAFE IN ENV? (Y/N) YES, NA INITIALS AW 0855, REVIEWED BY: ALEJANDRA WEI. EXAMINATION GENERAL EXAMINATION: THE PATIENT IS ALERT, ORIENTED TIMES THREE AND COOPERATIVE. HEART SHOWS REGULAR RHYTHM, NO MURMURS AND NO GALLOPS. LUNGS ARE CLEAR TO AUSCULTATION. ASSESSMENTS SPONDYLOSIS WITHOUT MYELOPATHY OR RADICULOPATHY, LUMBAR REGION - M47.816 (PRIMARY) SPONDYLOSIS WITHOUT MYELOPATHY OR RADICULOPATHY, LUMBOSACRAL REGION - M47.817 TREATMENT SPONDYLOSIS WITHOUT MYELOPATHY OR RADICULOPATHY, LUMBAR REGION SMC FACET BLOCK (PAIN)[id number] MEDICATION: VALIUM TAB 10MG ORALLY (DIAZEPAM)DIEGO WEBB 06/19/2020 9:23:33 AM > VERIFIED LOT [id number] EXP 01/2021 PERRY RIVAS 06/19/2020 9:27:46 AM > VALIUM ADMINISTERED THIS PROCEDURE WAS REVIEWED BY PERRY RIVAS ON 06/19/2020 AT 17:59 PM EST MEDICATION: OXYCODONE HCL TAB 10MG ORALLYDIEGO WEBB 06/19/2020 9:24:34 AM > VERIFIED LOT [id number] EXP 08/2021 PERRY RIVAS 06/19/2020 9:28:09 AM > OXYCODONE ADMINISTERED THIS PROCEDURE WAS REVIEWED BY PERRY ROB ON 06/19/2020 AT 17:58 PM EST NOTES: DISCHARGE INSTRUCTIONS REVIEWED AND PATIENT VERBALIZES UNDERSTANDING OF DISCHARGE INSTRUCTIONS . SPONDYLOSIS WITHOUT MYELOPATHY OR RADICULOPATHY, LUMBOSACRAL REGION SMC FACET BLOCK (PAIN)[id number] PROCEDURES PAIN NURSING RECORD PRE-PROCEDURE IV SITE N/A, PRE-PROCEDURE ORAL MEDICATIONS PER MD ORDER PROCEDURE IN ROOM 0955, PHYSICIAN IN ROOM 1022, START 1028, FINISH 1034, PHYSICIAN OUT OF ROOM 1036, STEROID KENALOG, O2 RA, ECG NORMAL SINUS, PATIENT SHIELDED YES, SAFETY STRAP YES, PREP CHLOROPREP BY Aye RIVAS RN, IV INFUSED N/A, DRESSING TEGADERM BY DR YANCEY LOC: 1. PERRY RIVAS 06/19/2020 0950:04 AM > , ALERT, ORIENTED RESP: PERRY RIVAS 06/19/2020 0950:18 AM > , 1. REGULAR, NO DYSPNEA COLOR: PERRY RIVAS 06/19/2020 0950:05 AM > , 1. PINK SKIN: PERRY RIVAS 06/19/2020 0950:39 AM > , 1. WARM, DRY POSITION: PERRY RIVAS 06/19/2020 0950:11 AM > , 1. PRONE VITALS: PERRY RIVAS 06/19/2020 10:00:30 AM > 159/74 HR70 16 97% R/A , PERRY RIVAS 06/19/2020 10:15:54 AM > 164/75 HR 70 16 95% R/A , PERRY RIVAS 06/19/2020 10:30:01 AM > 159/75 HR 78 16 96% R/A ROB MARY 06/19/2020 10:35:01 AM > 159/72 HR 71 16 95% R/A ROB MARY 06/19/2020 10:51:59 AM > 173/83 HR 69 16 99% D/C V/S DISCHARGE: POST PAIN 0, DRESSING SITE DRY AND INTACT, IV N/A, GAIT STEADY, TEACHING COMPLETED, PATIENT ACKNOWLEDGES UNDERSTANDING YES, PATIENT DISCHARGED AT 1057 PN LUMBAR FACET BLOCK THERAPEUTIC PRE PROCEDURE DIAGNOSIS LUMBAR SPONDYLOSIS, LUMBOSACRAL SPONDYLOSIS POST PROCEDURE DIAGNOSIS LUMBAR SPONDYLOSIS, LUMBOSACRAL SPONDYLOSIS PROCEDURE BILATERAL L4-L5 AND BILATERAL L5-S1 LUMBAR FACET THERAPEUTIC BLOCK SURGEON DR. CONSTANTINE YANCEY CAFETERIA WORKER NONE ANESTHESIA LOCAL PRE PROCEDURE NOTE THE PATIENT HAS A HISTORY OF CHRONIC LOW BACK PAIN. I EVALUATED THE PATIENT AND REVIEWED THE CHART. I WENT OVER THE RISKS, ALTERNATIVES, AND BENEFITS ASSOCIATED WITH THIS PROCEDURE. I DISCUSSED THAT THE USE OF STEROIDS MAY CONTRIBUTE TO IMMUNOSUPPRESSION OF THE PATIENT'S BODY AGAINST INFECTIONS SUCH COVID-19. THE PATIENT IS AWARE OF THE POTENTIAL COMPLICATIONS ASSOCIATED WITH THIS VIRUS, INCLUDING, BUT NOT LIMITED TO, . THE PATIENT WOULD LIKE TO PROCEED AND GIVES CONSENT TO PERFORM THE PROCEDURE. THE PATIENT DENIES UNEXPLAINABLE WEIGHT LOSS, FEVER, CHILLS, OR NEW CHANGES IN URINARY OR BOWEL CONTROL. THE PATIENT IS COVID-19 NEGATIVE DESCRIPTION OF PROCEDURE THE PATIENT WAS BROUGHT TO THE PROCEDURE ROOM AND PLACED IN THE PRONE POSITION. THE LUMBOSACRAL AREA WAS CLEANED WITH CHLORAPREP SOLUTION AND DRAPED ASEPTICALLY. THE PROCEDURE WAS DONE UNDER STERILE CONDITIONS. A TIMEOUT WAS PERFORMED WHERE LATERALITY AND THE SITE OF THE PROCEDURE WERE CHECKED AND CONFIRMED WITH EVERYONE IN THE ROOM. UNDER FLUOROSCOPIC GUIDANCE, THE TARGET POINT WAS SELECTED AT THE RIGHT AND LEFT L4-L5 AND RIGHT AND LEFT L5-S1 FACET JOINTS. TARGET POINT WAS SELECTED AFTER LATERAL ROTATION AND TILT OF THE MAGNIFIER OF THE C-ARM. I CONFIRMED AGAIN WITH EVERYONE IN THE ROOM THE LATERALITY OF THE TARGET AT 1025. LIDOCAINE 0.5% WAS USED TO NUMB THE SKIN AND THE SUBCUTANEOUS TISSUE BELOW IT. SPINAL NEEDLES, 22-GAUGE, WERE ADVANCED UNDER FLUOROSCOPIC GUIDANCE AND FOLLOWING PATIENT FEEDBACK UNTIL THE TARGETS WERE TOUCHED. THE POSITION OF THE NEEDLES WAS VERIFIED WITH AP AND LATERAL VIEWS. AFTER PROPER POSITION OF THE NEEDLES WAS ACHIEVED, ISOVUE-M DYE 30%, 0.1 ML, WAS INJECTED SHOWING ADEQUATE SPREAD OF THE DYE. KENALOG 20 MG WAS INJECTED AT EACH SITE. THEN, A SOLUTION OF 1.0 ML OF BUPIVACAINE 0.125% OF WAS USED TO FLUSH EACH SITE. THE MEDICATION WAS VERIFIED WITH THE NURSE. THERE WAS NO EVIDENCE OF BLOOD, PARESTHESIA OR CEREBROSPINAL FLUID DURING THE PROCEDURE. THE PATIENT WAS SENT TO THE RECOVERY ROOM. THE PATIENT WAS MOVING THE EXTREMITIES AND DOING WELL. THERE WERE NO COMPLICATIONS DURING THE PROCEDURE. ESTIMATED BLOOD LOSS WAS LESS THAN 5 ML. FLUOROSCOPY TIME WAS 40 SECONDS POST PROCEDURE NOTE THE PATIENT WILL BE SEEN IN A FOLLOW UP IN THE NEXT FEW WEEKS. I AM LOOKING FOR LONG LASTING RELIEF FOR THE PATIENT WITH THIS INTERVENTION. INSTRUCTIONS WERE GIVEN, QUESTIONS WERE ANSWERED, AND THE PATIENT EXPRESSED UNDERSTANDING AND AGREES WITH THE PLAN. I, JACOB BEAN, DOCUMENTED THE ABOVE INFORMATION ACTING A SCRIBE FOR DR. YNACEY. I HAVE REVIEWED THE ABOVE DOCUMENT, WRITTEN BY JACOB BEAN, GAMING CAGE CASHIER, AND I VERIFY THAT IT IS ACCURATE PROCEDURE CODES 24507 INJ PARAVERT F JNT L/S 1 LEV, MODIFIERS: 50 [id number] INJ PARAVERT F JNT L/S 2 LEV, MODIFIERS: 50 DISPOSITION & COMMUNICATION FOLLOW UP FOLLOW UP WITH CLIENT DEVELOPMENT DIRECTOR (REASON: POST BILATERAL THERAPEUTIC FACET BLOCK LUMBAR L4-L5, L5-S1) ELECTRONICALLY SIGNED BY CONSTANTINE YANCEY MD, MD ON 06/19/2020 AT 12:08 PM EST DISCLAIMER : THIS IS A VISIT SUMMARY EXTRACTED FROM THE [facility] CHART. IT IS NOT A COPY OF THE [facility] PROGRESS NOTE. JERONIMO
== END ==
LOC: M PAIN 09:00
PROVIDERS: ATTEND Anesthesiology
DX: M47.816 Spondylosis without myelopathy or radiculopathy, lumbar region (principal); M47.817 Spondylosis without myelopathy or radiculopathy, lumbosacral region; G47.33 Obstructive sleep apnea (adult) (pediatric); E11.9 Type 2 diabetes mellitus without complications; M79.7 Fibromyalgia; K21.9 Gastro-esophageal reflux disease without esophagitis; G25.81 Restless legs syndrome; Z86.59 Personal history of other mental and behavioral disorders; Z96.652 Presence of left artificial knee joint; Z87.891 Personal history of nicotine dependence; Z79.82 Long term (current) use of aspirin; Z79.899 Other long term (current) drug therapy
CPT/HCPCS: 64493; 64494; J3301; Q9967

== ENCOUNTER → 2020-07-01 | Outpatient (CLI) | payer MEDICARE ==
[~2020-07-01] MED LIST changes: -BUPIVACAINE HCL 0.25% 30ML VIAL As Ordered ONE; -ISOVUE-M 300 61% 15ML VIAL As Ordered ONE; -LIDOCAINE 1% SDV 30ML VIAL As Ordered ONE; -TRIAMCINOLONE ACETONIDE SUSP 40 MG/ML VIAL (J3301) As Ordered ONE; -diazePAM 5MG TABLET As Ordered ONE; -oxyCODONE 5MG TAB As Ordered ONE
--- NOTE | 2020-07-02 00:17 | ECWPNPC ---
PATIENT NAME: CHRISSIE SANFORD : 1940 GENDER: MALE VISIT DATE: 07/01/2020 DISCHARGE DATE: 07/01/20 1034 VISIT LOCKED DATE TIME: PHYSICIAN: ARABELLA YBARRA PHYSICIAN PAGER NO: ACTIVE RESOURCE: ARABELLA YBARRA REASON FOR APPOINTMENT 1. POST BILATERAL L4-5, L5-S1 THERAPEUTIC LUMBAR FACET BLOCK HISTORY OF PRESENT ILLNESS DEPRESSION SCREENING: PHQ-2 (2015 EDITION) LITTLE INTEREST OR PLEASURE IN DOING THINGS?NOT AT ALL FEELING DOWN, DEPRESSED, OR HOPELESS?NOT AT ALL TOTAL SCORE0 GENERAL: HERE FOR POST PROCEDURE FOLLOW-UP. HAD BILATERAL L4-5, L5-S1 LUMBAR THERAPEUTIC FACET BLOCK AT HIS LAST VISIT. REPORTING SIGNIFICANT IMPROVEMENT IN HIS LOW BACK PAIN. ALSO REPORTING IMPROVEMENT IN THORACIC BACK PAIN SINCE PROCEDURE. HE IS FOLLOWING WITH ORTHOPEDIC GROUP IN [place] IN REGARDS TO THORACIC BACK PAIN AND HAS AN MRI SCHEDULED. TODAY HE REPORTS THIS AREA OF PAIN HAS IMPROVED SINCE LUMBAR INJECTIONS. -. FALL RISK SCREENING: SCREENING :NO FALLS REPORTED IN THE LAST YEAR PAIN SCREENING: PATIENT HAS A COMPLAINT OF ACUTE OR CHRONIC PAIN :YES LOCATION OF PAIN:LOW BACK INTENSITY OF PAIN (SCALE OF 1 TO 10):2 WHAT DOES YOUR PAIN FEEL LIKE:ACHING DURATION:INTERMITTENT PAIN IS INCREASED BY:OTHERS PROLONGED SITTING PAIN IS DECREASED BY:USE OF PAIN MEDICATIONS, OTHERS WALKING NURSING NOTE: -. PAIN CENTER INTAKE QUESTIONS: DO YOU HAVE A HISTORY OF MRSA? :NO DO YOU TAKE A BLOOD THINNERS? :NO DO YOU HAVE ANY BLEEDING DISORDERS? :NO ANY NEW NUMBNESS OR WEAKNESS IN YOUR LEGS OR ARMS? :NO ANY PACEMAKER,DEFIBRILLATOR, OR DORSAL COLUMN STIMULATOR? :NO DO YOU HAVE ANY RASHES OR OPEN SORES? :NO ARE YOU ALLERGIC TO IV DYE? :NO ARE YOU DIABETIC? :NO ANY NEW PROBLEMS WITH YOUR MEDICATIONS? :NO HAVE YOU RECEIVED A VACCINE IN THE PAST 30 DAYS? :NO DO YOU PLAN TO RECEIVE A VACCINE IN THE NEXT 21 DAYS? :NO DO YOU NEED ANY PRESCRIPTION? :NO DO YOU TAKE ANY IMMUNOSUPPRESSIVE MEDICATIONS? :NO IS THERE A CHANCE YOU COULD BE ? :NO ARE YOU BREAST FEEDING? :NO CURRENT MEDICATIONS TAKING FISH OIL 1000 MG OTC 1 CAPSULE ORALLY ONCE A DAY TAKING MULTIVITAMINS OTC TABLET 1 TAB ORALLY ONCE A DAY TAKING VITAMIN D 1000 UNIT OTC 1 TABLET ORALLY ONCE A DAY TAKING SELENIUM 200 MCG OTC 1 TAB ORALLY ONCE A DAY TAKING CALCIUM 600 + D 600-200 MG-UNIT OTC 2 TABLETS ORALLY ONCE A DAY TAKING VITAMIN C 500 MG OTC 1 TABLET ORALLY ONCE A DAY TAKING VITAMIN A 8000 UNIT OTC 1 CAPSULE ORALLY ONCE A DAY TAKING ASPIR-81 81 MG TABLET DELAYED RELEASE 1 TABLET ORALLY ONCE A DAY TAKING MAGNESIUM 400 MG CAPSULE 1 TAB ORALLY DAILY TAKING VITAMIN B COMPLEX - TABLET DIRECTED ORALLY TAKING MELOXICAM 7.5 MG TABLET TAKE ONE TABLET BY MOUTH TWICE A DAY NEEDED MAXIMUM DAILY DOSE = 2 TABLETS ORALLY TWICE A DAY TAKING FLUTICASONE PROPIONATE 50 MCG/ACT SUSPENSION 1 SPRAY IN EACH NOSTRIL NASALLY ONCE A DAY AT BED TIME NEEDED TAKING IRBESARTAN 300 MG TABLET 1 TABLET ORALLY ONCE A DAY TAKING INDAPAMIDE 2.5 MG TABLET TAKE ONE TABLET BY MOUTH EVERY MORNING TAKING OMEPRAZOLE 40 MG CAPSULE DELAYED RELEASE 1 CAPSULE ORALLY TWICE DAILY TAKING CINNAMON 500 MG CAPSULE DIRECTED ORALLY 2 TABS TWICE DAILY TAKING TURMERIC PO DAILY TAKING SIMVASTATIN 20 MG TABLET TAKE ONE TABLET BY MOUTH EVERY EVENING TAKING OXYBUTYNIN CHLORIDE 5 MG TABLET 1 TABLET ORALLY TWICE A DAY TAKING TRAZODONE HCL 50 MG TABLET TAKE ONE TABLET BY MOUTH AT BEDTIME NOT-TAKING FERROUS SULFATE 325 (65 FE) MG TABLET 1 TABLET ORALLY ONCE OR TWICE A WEEK AT MOST NOT-TAKING AMOXICILLIN-POT CLAVULANATE 875-125 MG TABLET 1 TABLET ORALLY EVERY 12 HRS MEDICATION LIST REVIEWED AND RECONCILED WITH THE PATIENT PAST MEDICAL HISTORY TYPE 2 DM-- DIETARY CONTROL HYPERLIPIDEMIA FIBROMYALGIA--DISABLED ALLERGIES BPH GENERALIZED OA NEGATIVE CATH NO CAD; NORMAL STRESS ECHO 12/23 (EF 60%); STRESS ECHO 04/27 UNCHANGED HYPERTENSION PULMONARY FIBROSIS COLON POLYP ADENOMATOUS COLONSCOPY 05/13,05/16,10/17,11/17, DDD/C-SPINE XRAY 02/13; HAD MRIS DONE AT [facility] (NO [facility]), DX WITH CERVICAL AND LUMBAR SPONDYLOSIS; SOS/NYSW INJECTIONS 2014, 2015; [facility] 2016 MILD ANEMIA FROM Q 2 MONTH BLOOD DONATIONS BILATERAL SHOULDER TENDONITIS/ARTHIRITIS VENTRAL HERNIA ERECTILE DYSFUNCTION GERD/SCHATZKI'S RING DEPRESSION XEROSTOMIA (? FROM [place]) RESTLESS LEG SYNDROME ZOEY ON CPAP PER PULMONARY HAD NCS DONE AT [facility], NO RECORDS SENT VASC SX EVALUATION 04/26 DR SHULTZ--NORMAL LOWER EXT CIRCULATION ALLERGIES N.K.D.A. SURGICAL HISTORY SPURS ON LEFT FOOT BY 1996 & [address]IC SURGERY [address]. LAYTON 2003 & 2008 LEFT KNEE TOTAL KNEE REPLACEMENT [place] N.Y DR. CASON 01/2010 COLONOSCOPIES--ADENOMATOUS POLYPS 11/25; NL COLO 03/24, 2013, 01/23, 12/27 2001,2004,2007,2008, 03/25, 01/23, RT SHOULDER SX DR CASON SOS 04/2010 EGD - [place] [facility]--NL 03/24 02/19, 03/24 GALL BLADDER REMOVAL 11/2012 STEROID INJECTION ( SOS, [place]) 11/24 RIGHT KNEE REPAIR, PARTIAL REPLACEMENT 09/14/17 RIGHT SHOULDER ARTHROSCOPY 03/10/2019 FAMILY HISTORY FATHER: DIABETES, TYPE II, DIAGNOSED WITH DIABETES MOTHER: COLON CARCINOMA, OTHER MALIGNANT NEOPLASM OF UNSPECIFIED SITE SIBLINGS: COLON CARCINOMA, PROSTATE CA, SISTER WITH THYROID CANCER, OTHER MALIGNANT NEOPLASM OF UNSPECIFIED SITE 2 SON(S) , 1 DAUGHTER(S) . DENIES FAMILY HISTORY OF MM. SOCIAL HISTORY GENERAL: TOBACCO USE ARE YOU A:FORMER SMOKER HOW LONG HAS IT BEEN SINCE YOU LAST SMOKED?> 10 YEARS LATEX QUESTIONNAIRE LATEX ALLERGY : HAVE YOU EVER DEVELOPED ANY TYPE OF REACTION AFTER HANDLING LATEX PRODUCTS SUCH RUBBER GLOVES, CONDOMS, DIAPHRAGMS, BALLOONS, SOCKS, OR UNDERWEAR?NO LATEX ALLERGY : HAVE YOU EVER DEVELOPED ANY TYPE OF REACTION DURING OR AFTER DENTAL APPOINTMENT, VAGINAL/RECTAL EXAMINATION, SURGICAL PROCEDURE, OR ANY OTHER EXPOSURE?NO DATE ASKED : 06/18/2020 LATEX RISK : HAVE YOU EVER HAD ANY DIFFICULTY BREATHING OR HIVES AFTER EATING OR HANDLING ANY FRUITS, OR VEGETABLES; SUCH KIWI, BANANAS, STONE FRUITS, OR CHESTNUTSNO LATEX RISK : DO YOU HAVE A PREVIOUS PERSONAL HISTORY OF MORE THAN NINE SURGERIES, SPINA BIFIDA, OR REPEATED CATHERIZATIONS? NO LATEX RISK : ARE YOU FREQUENTLY EXPOSED TO LATEX PRODUCTS IN YOUR OCCUPATION?NO BMI CARE GOAL FOLLOW-UP ABOVE NORMAL BMI FOLLOW-UPLIFESTYLE EDUCATION REGARDING DIET ALCOHOL SCREENING DID YOU HAVE A DRINK CONTAINING ALCOHOL IN THE PAST YEAR?NO POINTS0 INTERPRETATIONNEGATIVE RECREATIONAL DRUG USE DRUG USE?NO CAFFEINE CAFFEINE USE?YES HOW OFTEN AND HOW MUCH? COFFEE 2 CUPS DAILY SEXUAL HX HAD SEX IN THE LAST 12 MONTHS (VAGINAL, ORAL, OR ANAL)?NO HAVE YOU EVER HAD AN STD?NO [employer]AN [id number] TENRIISM NO RESTORATION BELIEFS THAT WOULD IMPACT HEALTH CARE. LANGUAGE LANGUAGES SPOKEN:VIETNAMESE LEARNING BARRIERS / SPECIAL NEEDS CHANGE FROM LAST VISIT?NO BARRIERS TO LEARNING?NO HEARING IMPAIRED?YES VISION IMPAIRED?YES COGNITIVELY IMPAIRED?NO :HEARING AIDES B/L :CORRECTIVE LENSES READINESS TO LEARN?YES LEARNING PREFERENCES?NO LEARNING CAPABILITIES PRESENT?YES EMOTIONAL BARRIERS?NO SPECIAL DEVICES?NO GROUP CHIEF OPERATOR NEEDED?NO DOMESTIC VIOLENCE DO YOU FEEL SAFE IN YOUR ENVIRONMENT?YES DIET: REGULAR. MARITAL STATUS: . OTHERS AT HOME: SPOUSE. PAIN CLINIC PFS, CLERGY, PUBLIC HEALTH REFERRALS PFS REFERRAL NEEDED?NO CLERGY REFERRAL NEEDED?NO PUBLIC HEALTH REFERRAL NEEDED?NO WAS THE PROVIDER NOTIFIED OF ANY PERTINENT INFO?NO N/A HAS THE PATIENT BEEN EDUCATED REGARDING HIS/HER PLAN OF CARE?YES HAS THE PATIENT BEEN EDUCATED REGARDING PAIN, THE RISK FOR PAIN, THE IMPORTANCE OF EFFECTIVE PAIN MANAGEMENT, AND THE PAIN ASSESSMENT PROCESS?YES ADVANCE DIRECTIVE ADVANCE DIRECTIVE DISCUSSED WITH PATIENT:YES HCP , DEANNA [phone] POA , DEANNA LIVING WILL NO DOCUMENTATION WITH HIM PAT REVIEWED WITH PATIENT 06/18. HOSPITALIZATION/MAJOR DIAGNOSTIC PROCEDURE SURGERY RELATED REVIEW OF SYSTEMS CONSTITUTIONAL: ANY RECENT FEVER NO . CHILLS NO . WEIGHT CHANGE OF UNKNOWN REASONS NO . GASTROENTEROLOGY: NEW UNEXPLAINABLE CHANGES IN BOWEL CONTROL NO . CONSTIPATION NO . GENITOURINARY: ANY NEW CHANGE IN BLADDER CONTROL? NO . NEUROLOGY: NEW ONSET DIZZINESS OR NEUROLOGICAL CHANGES NOT MENTIONED NO . NEW NUMBNESS OR PAIN PATTERNS NOT MENTIONED AND PERTINENT TO TODAY'S VISIT NO . CARDIOLOGY: NEW CHEST PRESSURE NO . NEW CHEST PAIN NO . RESPIRATORY: UNEXPLAINABLE COUGH NO . NEW SHORTNESS OF BREATH NO . VITAL SIGNS WT 214.0 LBS, HT 69 IN, BMI 31.60 INDEX, BP 175/82 MM HG, HR 79 /MIN, RR 18 /MIN, TEMP 97.5 F, OXYGEN SAT % 98%, SAFE IN ENV? (Y/N) YES, NA INITIALS AW [id number]/ 1003 REVIEWED. Jeimy LEACH RN. EXAMINATION GENERAL EXAMINATION: GENERALAWAKE,ALERT ,PLEASANT . PSYCHAFFECT NORMAL . LUNGS:LUNG STAHL ARE CLEAR TO AUSCULTATION BILATERALLY. GOOD MOVEMENT OF AIR . HEART:S1, S2 IN A REGULAR RATE AND RHYTHM. NO SIGNIFICANT MURMURS, RUBS OR GALLOPS NOTED . ASSESSMENTS SPONDYLOSIS WITHOUT MYELOPATHY OR RADICULOPATHY, LUMBAR REGION - M47.816 (PRIMARY) OTHER CHRONIC PAIN - G89.29 TREATMENT OTHER CHRONIC PAIN PAIN PROCEDURE LOGDATE OF ECERNHEQO74/9/20PROCEDURE:BILATERAL THERAPEUTIC LUMBAR FACET BLOCK L4-5, L5-N4SUQQKA OF PRE SEDATEOXYCODONE 10 MG, VALIUM 10 MGRESULT:CONTINUES TO DO WELL TODAY PROCEDURE CODES FA211 [address] [facility] CHARGE DISPOSITION & COMMUNICATION FOLLOW UP 3 MONTHS (REASON: LBP RES[PONDS WELL TO LFBT) ELECTRONICALLY SIGNED BY DEE GARCIA ON 07/01/2020 AT 10:47 AM EST DISCLAIMER : THIS IS A VISIT SUMMARY EXTRACTED FROM THE [employer] CHART. IT IS NOT A COPY OF THE [employer] PROGRESS NOTE. ELIZABETHD
== END ==
LOC: M PAIN 09:45
PROVIDERS: ATTEND Nurse Practitioner Family
DX: M47.816 Spondylosis without myelopathy or radiculopathy, lumbar region (principal); G89.29 Other chronic pain; E11.9 Type 2 diabetes mellitus without complications; M79.7 Fibromyalgia; K21.9 Gastro-esophageal reflux disease without esophagitis; G25.81 Restless legs syndrome; G47.33 Obstructive sleep apnea (adult) (pediatric); Z86.59 Personal history of other mental and behavioral disorders; Z96.652 Presence of left artificial knee joint; Z87.891 Personal history of nicotine dependence; Z79.82 Long term (current) use of aspirin; Z79.899 Other long term (current) drug therapy

== ENCOUNTER → 2020-08-01 | Outpatient (CLI) | payer MEDICARE ==
--- NOTE | 2020-08-02 23:32 | ECWPNPC ---
PATIENT NAME: CHRISSIE SANFORD : 1940 GENDER: MALE VISIT DATE: 08/01/2020 DISCHARGE DATE: 08/01/20 1100 VISIT LOCKED DATE TIME: PHYSICIAN: ARABELLA YBARRA PHYSICIAN PAGER NO: ACTIVE RESOURCE: ARABELLA YBARRA REASON FOR APPOINTMENT 1. 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 THIS BEGAN SEVERAL YEARS AGO WHEN HE WAS WORKING AND HIT THAT REGION WITH A BLUNT OBJECT. PAIN HAS INCREASED OVER THE YEARS. REPORTS NIGHTTIME AWAKENINGS DUE TO MID TO LOWER THORACIC BACK PAIN. CONTINUES TO DO WELL WITH LOW BACK PAIN AFTER HAVING LUMBAR FACET THERAPEUTIC BLOCKS SEVERAL MONTHS AGO. [facility] LAST MONTH AND THEY REVIEWED THORACIC MRI RESULTS. ACCORDING TO THEIR NOTES IS SHOWING DEGENERATIVE CHANGES WITHOUT DISC HERNIATION OR NERVE IMPINGEMENT. WE WILL OBTAIN THE ACTUAL RADIOLOGICAL REPORT FROM THEIR OFFICE TODAY. DISCUSSED THORACIC THERAPEUTIC FACET BLOCK.-. FALL RISK SCREENING: SCREENING :NO FALLS REPORTED IN THE LAST YEAR PAIN SCREENING: PATIENT HAS A COMPLAINT OF ACUTE OR CHRONIC PAIN :NO NURSING NOTE: -. PAIN CENTER INTAKE QUESTIONS: DO YOU HAVE A HISTORY OF MRSA? :NO DO YOU TAKE A BLOOD THINNERS? :NO DO YOU HAVE ANY BLEEDING DISORDERS? :NO ANY NEW NUMBNESS OR WEAKNESS IN YOUR LEGS OR ARMS? :NO ANY PACEMAKER,DEFIBRILLATOR, OR DORSAL COLUMN STIMULATOR? :NO DO YOU HAVE ANY RASHES OR OPEN SORES? :NO ARE YOU ALLERGIC TO IV DYE? :NO ARE YOU DIABETIC? :NO ANY NEW PROBLEMS WITH YOUR MEDICATIONS? :NO HAVE YOU RECEIVED A VACCINE IN THE PAST 30 DAYS? :NO DO YOU PLAN TO RECEIVE A VACCINE IN THE NEXT 21 DAYS? :NO DO YOU NEED ANY PRESCRIPTION? :NO DO YOU TAKE ANY IMMUNOSUPPRESSIVE MEDICATIONS? :NO IS THERE A CHANCE YOU COULD BE ? :NO ARE YOU BREAST FEEDING? :NO CURRENT MEDICATIONS TAKING FISH OIL 1000 MG OTC 1 CAPSULE ORALLY ONCE A DAY TAKING MULTIVITAMINS OTC TABLET 1 TAB ORALLY ONCE A DAY TAKING VITAMIN D 1000 UNIT OTC 1 TABLET ORALLY ONCE A DAY TAKING SELENIUM 200 MCG OTC 1 TAB ORALLY ONCE A DAY TAKING CALCIUM 600 + D 600-200 MG-UNIT OTC 2 TABLETS ORALLY ONCE A DAY TAKING VITAMIN C 500 MG OTC 1 TABLET ORALLY ONCE A DAY TAKING VITAMIN A 8000 UNIT OTC 1 CAPSULE ORALLY ONCE A DAY TAKING ASPIR-81 81 MG TABLET DELAYED RELEASE 1 TABLET ORALLY ONCE A DAY TAKING MAGNESIUM 400 MG CAPSULE 1 TAB ORALLY DAILY TAKING VITAMIN B COMPLEX - TABLET DIRECTED ORALLY TAKING IRBESARTAN 300 MG TABLET 1 TABLET ORALLY ONCE A DAY TAKING INDAPAMIDE 2.5 MG TABLET TAKE ONE TABLET BY MOUTH EVERY MORNING TAKING OMEPRAZOLE 40 MG CAPSULE DELAYED RELEASE 1 CAPSULE ORALLY TWICE DAILY TAKING CINNAMON 500 MG CAPSULE DIRECTED ORALLY 2 TABS TWICE DAILY TAKING TURMERIC PO DAILY TAKING SIMVASTATIN 20 MG TABLET TAKE ONE TABLET BY MOUTH EVERY EVENING TAKING OXYBUTYNIN CHLORIDE 5 MG TABLET 1 TABLET ORALLY TWICE A DAY TAKING TRAZODONE HCL 50 MG TABLET TAKE ONE TABLET BY MOUTH AT BEDTIME TAKING MELOXICAM 7.5 MG TABLET TAKE ONE TABLET BY MOUTH TWICE A DAY NEEDED MAXIMUM DAILY DOSE = 2 TABLETS ORALLY TWICE A DAY NOT-TAKING FLUTICASONE PROPIONATE 50 MCG/ACT SUSPENSION 1 SPRAY IN EACH NOSTRIL NASALLY ONCE A DAY AT BED TIME NEEDED NOT-TAKING FERROUS SULFATE 325 (65 FE) MG TABLET 1 TABLET ORALLY ONCE OR TWICE A WEEK AT MOST NOT-TAKING AMOXICILLIN-POT CLAVULANATE 875-125 MG TABLET 1 TABLET ORALLY EVERY 12 HRS MEDICATION LIST REVIEWED AND RECONCILED WITH THE PATIENT PAST MEDICAL HISTORY TYPE 2 DM-- DIETARY CONTROL HYPERLIPIDEMIA FIBROMYALGIA--DISABLED ALLERGIES BPH GENERALIZED OA NEGATIVE CATH NO CAD; NORMAL STRESS ECHO 12/23 (EF 60%); STRESS ECHO 04/27 UNCHANGED HYPERTENSION PULMONARY FIBROSIS COLON 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, NO RECORDS SENT VASC SX EVALUATION 04/26 DR SHULTZ--NORMAL LOWER EXT CIRCULATION ALLERGIES N.K.D.A. SOCIAL HISTORY GENERAL: TOBACCO USE ARE YOU A:FORMER SMOKER HOW LONG HAS IT BEEN SINCE YOU LAST SMOKED?> 10 YEARS LATEX QUESTIONNAIRE LATEX ALLERGY : HAVE YOU EVER DEVELOPED ANY TYPE OF REACTION AFTER HANDLING LATEX PRODUCTS SUCH RUBBER GLOVES, CONDOMS, DIAPHRAGMS, BALLOONS, SOCKS, OR UNDERWEAR?NO LATEX ALLERGY : HAVE YOU EVER DEVELOPED ANY TYPE OF REACTION DURING OR AFTER DENTAL APPOINTMENT, VAGINAL/RECTAL EXAMINATION, SURGICAL PROCEDURE, OR ANY OTHER EXPOSURE?NO LATEX RISK : HAVE YOU EVER HAD ANY DIFFICULTY BREATHING OR HIVES AFTER EATING OR HANDLING ANY FRUITS, OR VEGETABLES; SUCH KIWI, BANANAS, STONE FRUITS, OR CHESTNUTSNO LATEX RISK : DO YOU HAVE A PREVIOUS PERSONAL HISTORY OF MORE THAN NINE SURGERIES, SPINA BIFIDA, OR REPEATED CATHERIZATIONS? NO LATEX RISK : ARE YOU FREQUENTLY EXPOSED TO LATEX PRODUCTS IN YOUR OCCUPATION?NO DATE ASKED : 08/01/2020 BMI CARE GOAL FOLLOW-UP ABOVE NORMAL BMI FOLLOW-UPLIFESTYLE EDUCATION REGARDING DIET ALCOHOL SCREENING DID YOU HAVE A DRINK CONTAINING ALCOHOL IN THE PAST YEAR?NO POINTS0 INTERPRETATIONNEGATIVE RECREATIONAL DRUG USE DRUG USE?NO CAFFEINE CAFFEINE USE?YES HOW OFTEN AND HOW MUCH? COFFEE 2 CUPS DAILY SEXUAL HX HAD SEX IN THE LAST 12 MONTHS (VAGINAL, ORAL, OR ANAL)?NO HAVE YOU EVER HAD AN STD?NO PENTECOSTAL [id number] TAOISM NO CHRISTIANITY BELIEFS THAT WOULD IMPACT HEALTH CARE. LANGUAGE LANGUAGES SPOKEN:TURKISH LEARNING BARRIERS / SPECIAL NEEDS CHANGE FROM LAST VISIT?NO BARRIERS TO LEARNING?NO HEARING IMPAIRED?YES :HEARING AIDES B/L VISION IMPAIRED?YES :CORRECTIVE LENSES COGNITIVELY IMPAIRED?NO READINESS TO LEARN?YES LEARNING PREFERENCES?NO LEARNING CAPABILITIES PRESENT?YES EMOTIONAL BARRIERS?NO SPECIAL DEVICES?NO SUPERVISOR OPEN HEARTH STOCKYARD NEEDED?NO DOMESTIC VIOLENCE DO YOU FEEL SAFE IN YOUR ENVIRONMENT?YES DIET: REGULAR. MARITAL STATUS: . OTHERS AT HOME: SPOUSE. - PFS REFERRAL NEEDED?NO CLERGY REFERRAL NEEDED?NO PUBLIC HEALTH REFERRAL NEEDED?NO WAS THE PROVIDER NOTIFIED OF ANY PERTINENT INFO?NO N/A HAS THE PATIENT BEEN EDUCATED REGARDING HIS/HER PLAN OF CARE?YES HAS THE PATIENT BEEN EDUCATED REGARDING PAIN, THE RISK FOR PAIN, THE IMPORTANCE OF EFFECTIVE PAIN MANAGEMENT, AND THE PAIN ASSESSMENT PROCESS?YES ADVANCE DIRECTIVE ADVANCE DIRECTIVE DISCUSSED WITH PATIENT:YES HCP , DEANNA [phone] POA , DEANNA LIVING WILL NO DOCUMENTATION WITH HIM PAT REVIEWED WITH PATIENT 06/18. REVIEW OF SYSTEMS CONSTITUTIONAL: ANY RECENT FEVER NO . CHILLS NO . WEIGHT CHANGE OF UNKNOWN REASONS NO . GASTROENTEROLOGY: NEW UNEXPLAINABLE CHANGES IN BOWEL CONTROL NO . CONSTIPATION NO . GENITOURINARY: ANY NEW CHANGE IN BLADDER CONTROL? NO . NEUROLOGY: NEW ONSET DIZZINESS OR NEUROLOGICAL CHANGES NOT MENTIONED NO . NEW NUMBNESS OR PAIN PATTERNS NOT MENTIONED AND PERTINENT TO TODAY'S VISIT NO . CARDIOLOGY: NEW CHEST PRESSURE NO . NEW CHEST PAIN NO . RESPIRATORY: UNEXPLAINABLE COUGH NO . NEW SHORTNESS OF BREATH NO . VITAL SIGNS WT 214.2 LBS, HT 69 IN, BMI 31.63 INDEX, BP 178/79 MM HG, REPEAT BP 168/84 MANUAL, HR 77 /MIN, RR 18 /MIN, TEMP 97.4 F, OXYGEN SAT % 97%Maura FARRELL RNMANUAL BP RETAKEN. VITAL SIGNS PROVIDED TO PROVIDER. EXAMINATION GENERAL EXAMINATION: GENERALNO ACUTE DISTRESS, WELL NOURISHED AND HYDRATED. PSYCHAPPROPRIATE MOOD AND AFFECT . NECK:NO LYMPHADENOPATHY, SUPPLE. LUNGS:CLEAR TO AUSCULTATION BILATERALLY, NO WHEEZES, RHONCHI, RALES. HEART:NO MURMURS, REGULAR RATE AND RHYTHM. THORACIC SPINE:SPECIFIC POINT TENDERNESS NOTED OVER T6/7, T78, T8-8-9 FACETS WITH FACET LOADING . DIAGNOSTIC TESTS REVIEWEDTHORACIC MRI . 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 PATIENT VERBALIZED UNDERSTANDING. ZONIA BLAKE MA. PROCEDURE CODES FA211 ESTABILISHED PATIENT [facility] CHARGE DISPOSITION & COMMUNICATION FOLLOW UP POST PROCEDURE (REASON: BILATERAL THORACIC THERAPEUTIC FACET BLOCK T6/7,T7/8,T8/9) ELECTRONICALLY SIGNED BY DEE GARCIA ON 08/02/2020 AT 03:40 PM EST DISCLAIMER : THIS IS A VISIT SUMMARY EXTRACTED FROM THE [employer] CHART. IT IS NOT A COPY OF THE [employer] PROGRESS NOTE. JERONIMO
== END ==
LOC: M PAIN 10:00
PROVIDERS: ATTEND Nurse Practitioner Family
DX: M47.814 Spondylosis without myelopathy or radiculopathy, thoracic region (principal); G89.29 Other chronic pain; E11.9 Type 2 diabetes mellitus without complications; M79.7 Fibromyalgia; K21.9 Gastro-esophageal reflux disease without esophagitis; G25.81 Restless legs syndrome; G47.33 Obstructive sleep apnea (adult) (pediatric); Z86.59 Personal history of other mental and behavioral disorders; Z87.891 Personal history of nicotine dependence; Z79.82 Long term (current) use of aspirin; Z79.899 Other long term (current) drug therapy

== ENCOUNTER → 2020-09-16 | Outpatient (CLI) | payer MEDICARE | LOC: M PLALAB 09:13 | PROVIDERS: ATTEND Urology | DX: Z12.5 Encounter for screening for malignant neoplasm of prostate (principal) | CPT/HCPCS: 36415; G0103 ==

== ENCOUNTER → 2020-10-24 | Outpatient (REF) | payer MEDICARE ==
[2020-10-24 13:12] LABS: HEMATOCRIT 42.4 % (42.0-52.0); HEMOGLOBIN 13.8 g/dl (13.5-17.5); MEAN CORPUSCULAR HEMOGLOBIN 31.2 pg (27.0-33.0); MEAN CORPUSCULAR HGB CONC 32.5 g/dl (32.0-36.5); MEAN CORPUSCULAR VOLUME 95.9 fl (80.0-96.0); PLATELET COUNT, AUTOMATED 292 10^3/uL (150-450); RED BLOOD COUNT 4.42 10^6/uL (4.30-6.10); WHITE BLOOD COUNT 8.5 10^3/uL (4.0-10.0)
[2020-10-24 15:57] LABS: ALBUMIN 4.4 GM/DL (3.2-5.2); ALT/SGPT 64 U/L (12-78); BILIRUBIN,TOTAL 0.4 MG/DL (0.2-1.0); BLOOD UREA NITROGEN 14 MG/DL (7-18); CALCIUM LEVEL 9.9 MG/DL (8.8-10.2); CARBON DIOXIDE LEVEL 32 MEQ/L (21-32); CHLORIDE LEVEL 98 MEQ/L (98-107); CHOLESTEROL LEVEL 161 MG/DL (<200); CREATININE FOR GFR 0.82 MG/DL (0.70-1.30); GLOMERULAR FILTRATION RATE > 60.0 (>35); GLUCOSE, FASTING 129 MG/DL (70-100); HDL CHOLESTEROL 46 MG/DL (>40); LDL CHOLESTEROL 66 MG/DL (<100); NON-HDL-C 115 MG/DL; POTASSIUM SERUM 4.5 MEQ/L (3.5-5.1); SODIUM LEVEL 136 MEQ/L (136-145); TOTAL PROTEIN 7.3 GM/DL (6.4-8.2); TRIGLYCERIDES LEVEL 243 MG/DL (<150)
[2020-10-24 18:53] LABS: HEMOGLOBIN A1c 7.1 %
== END ==
LOC: M SFHCADAM 07:48
PROVIDERS: ATTEND Family Medicine
DX: M54.6 Pain in thoracic spine (principal); E11.9 Type 2 diabetes mellitus without complications; E78.2 Mixed hyperlipidemia

== ENCOUNTER → 2021-01-09 | Outpatient (CLI) | payer MEDICARE ==
--- NOTE | 2021-01-09 20:52 | REPVR ---
PROCEDURE INFORMATION: Exam: MR Lumbar Spine Without Contrast Exam date and time: 01/09/2021 12:23 PM Age: 80 years old Clinical indication: Condition or disease; Spondylosis, lumbosacral; Lumbar sacral region; With radiculopathy; Additional info: Lumbosacral spondylosis TECHNIQUE: Imaging protocol: Multiplanar magnetic resonance images of the lumbar spine without intravenous contrast. COMPARISON: CR Spine,LS wBENDING MIN 6 VIEWS 09/07/2016 3:50 PM FINDINGS: Vertebral body heights are maintained. Mild Modic type 1 edematous degenerative endplate change at L5-S1. No cord compression. No abnormal cord signal. Conus medullaris terminates at the L1 level. Paravertebral soft tissues are unremarkable. L1-L2: No significant canal or foraminal narrowing. L2-L3: Broad-based disc bulge causes mild canal narrowing and mild bilateral foraminal narrowing. L3-L4: Broad-based disc bulge and facet hypertrophy cause mild canal narrowing and mild bilateral foraminal narrowing. L4-L5: Small right foraminal disc extrusion causing impingement upon the exiting right L4 nerve root. Additional presence of broad-based disc bulge, thickening of the ligamentum flavum, and facet hypertrophy cause mild canal narrowing and mild left foraminal narrowing. L5-S1: Broad-based disc bulge and facet hypertrophy cause moderate bilateral foraminal narrowing. No significant canal narrowing. IMPRESSION: 1. Small right foraminal disc extrusion at L4-L5 causes impingement upon the exiting right L4 nerve root. 2. Additional spondylotic changes of the lumbar spine, as above. Electronically signed by: Arden Mike On 01/09/2021 20:52:19 PM
== END ==
LOC: M RAD 11:44
PROVIDERS: ATTEND Pain Medicine Interventional Pain Medicine
DX: M47.817 Spondylosis without myelopathy or radiculopathy, lumbosacral region (principal); M51.26 Other intervertebral disc displacement, lumbar region; M51.27 Other intervertebral disc displacement, lumbosacral region

== ENCOUNTER → 2021-05-13 | Outpatient (REF) | payer MEDICARE ==
[2021-05-13 14:44] LABS: BLOOD UREA NITROGEN 12 MG/DL (7-18); CALCIUM LEVEL 10.1 MG/DL (8.8-10.2); CARBON DIOXIDE LEVEL 30 MEQ/L (21-32); CHLORIDE LEVEL 93 MEQ/L (98-107); CREATININE FOR GFR 0.83 MG/DL (0.70-1.30); FREE T4 1.12 NG/DL (0.76-1.46); GLOMERULAR FILTRATION RATE > 60.0 (>35); GLUCOSE, FASTING 117 MG/DL (70-100); POTASSIUM SERUM 4.6 MEQ/L (3.5-5.1); SODIUM LEVEL 130 MEQ/L (136-145)
[2021-05-13 15:22] LABS: HEMOGLOBIN A1c 6.5 %
== END ==
LOC: M SFHCADAM 07:54
PROVIDERS: ATTEND Family Medicine
DX: E78.2 Mixed hyperlipidemia (principal); E11.9 Type 2 diabetes mellitus without complications

== ENCOUNTER → 2021-07-17 | Outpatient (CLI) | payer MEDICARE | LOC: M RAD 16:34 | PROVIDERS: ATTEND Nurse Practitioner Family | DX: M25.512 Pain in left shoulder (principal) ==

== ENCOUNTER → 2021-09-22 | Outpatient (CLI) | payer MEDICARE | LOC: M PLALAB 10:14 | PROVIDERS: ATTEND Urology | DX: Z12.5 Encounter for screening for malignant neoplasm of prostate (principal) | CPT/HCPCS: 36415; G0103 ==

== ENCOUNTER → 2021-11-18 | Outpatient (REF) | payer MEDICARE ==
[2021-11-18 13:16] LABS: BLOOD UREA NITROGEN 16 MG/DL (7-18); CALCIUM LEVEL 9.6 MG/DL (8.8-10.2); CARBON DIOXIDE LEVEL 31 MEQ/L (21-32); CHLORIDE LEVEL 97 MEQ/L (98-107); CREATININE FOR GFR 0.98 MG/DL (0.70-1.30); GLOMERULAR FILTRATION RATE > 60.0 (>35); GLUCOSE, FASTING 125 MG/DL (70-100); POTASSIUM SERUM 4.4 MEQ/L (3.5-5.1); SODIUM LEVEL 133 MEQ/L (136-145)
[2021-11-18 13:31] LABS: CREATININE, URINE 48.2 MG/DL; MALB URINE SIEMENS 5.9 MG/L; MAU/CREAT RATIO 12.2 MCG/MG (0.0-30.0)
[2021-11-18 13:40] LABS: HEMOGLOBIN A1c 6.6 %
== END ==
LOC: M SFHCADAM 08:01
PROVIDERS: ATTEND Family Medicine
DX: E11.9 Type 2 diabetes mellitus without complications (principal)

== ENCOUNTER → 2022-09-22 | Outpatient (REF) | payer MEDICARE | LOC: M SFHCADAM 07:59 | PROVIDERS: ATTEND Urology | DX: Z12.5 Encounter for screening for malignant neoplasm of prostate (principal) ==

== ENCOUNTER → 2022-11-13 | Outpatient (REF) | payer MEDICARE ==
[2022-11-13 13:42] LABS: HEMATOCRIT 38.4 % (42.0-52.0); HEMOGLOBIN 12.9 g/dl (13.5-17.5); MEAN CORPUSCULAR HEMOGLOBIN 31.8 pg (27.0-33.0); MEAN CORPUSCULAR HGB CONC 33.6 g/dl (32.0-36.5); MEAN CORPUSCULAR VOLUME 94.6 fl (80.0-96.0); PLATELET COUNT, AUTOMATED 294 10^3/uL (150-450); RED BLOOD COUNT 4.06 10^6/uL (4.30-6.10); WHITE BLOOD COUNT 10.5 10^3/uL (4.0-10.0)
[2022-11-13 13:46] LABS: HEMOGLOBIN A1c 6.9 % (4.0-6.0)
[2022-11-13 13:59] LABS: CREATININE, URINE 116.9 MG/DL; MAU/CREAT RATIO 4.2 MCG/MG (0.0-30.0)
[2022-11-13 14:05] LABS: ALBUMIN 4.5 G/DL (3.2-5.2); ALKALINE PHOSPHATASE 38 U/L (46-116); ALT/SGPT 28 U/L (7.0-40); AST/SGOT 20 U/L (<34); BILIRUBIN,TOTAL 0.5 MG/DL (0.3-1.2); BLOOD UREA NITROGEN 13 MG/DL (9-23); CALCIUM LEVEL 9.6 MG/DL (8.3-10.6); CARBON DIOXIDE LEVEL 32 MMOL/L (20-31); CHLORIDE LEVEL 94 MMOL/L (98-107); CHOLESTEROL LEVEL 155 MG/DL (<200); CHOLESTEROL RISK RATIO 2.78 (<5); GLOMERULAR FILTRATION RATE > 60.0 (>35); GLUCOSE, FASTING 111 MG/DL (74-106); HDL CHOLESTEROL 55.7 MG/DL (>40); LDL CHOLESTEROL 72.7 MG/DL (<100); NON-HDL-C 99.3 MG/DL; POTASSIUM SERUM 4.5 MMOL/L (3.5-5.1); SODIUM LEVEL 130 MMOL/L (136-145); TRIGLYCERIDES LEVEL 133 MG/DL (<150)
== END ==
LOC: M SFHCADAM 07:56
PROVIDERS: ATTEND Family Medicine
DX: E11.9 Type 2 diabetes mellitus without complications (principal); E78.2 Mixed hyperlipidemia; I11.9 Hypertensive heart disease without heart failure

== ENCOUNTER 2023-02-24 17:15 | Emergency (ER) | payer MEDICARE ==
[~2023-02-24] VITALS: Ht 175.3 cm; Wt 93.2 kg
[2023-02-24 18:10] LABS: BASO % 0.5 % (0.0-1.0); EOS % 0.2 % (0.0-3.0); HEMATOCRIT 35.6 % (42.0-52.0); HEMOGLOBIN 12.1 g/dl (13.5-17.5); LYMPH # 0.6 10^3/uL (1.5-5.0); LYMPH % 8.6 % (24.0-44.0); MEAN CORPUSCULAR HEMOGLOBIN 31.4 pg (27.0-33.0); MEAN CORPUSCULAR VOLUME 92.5 fl (80.0-96.0); MONO # 0.8 10^3/uL (0.0-0.8); MONO % 12.7 % (2.0-8.0); NEUTROPHILS # 4.9 10^3/uL (1.5-8.5); NEUTROPHILS % 77.1 % (36.0-66.0); PLATELET COUNT, AUTOMATED 249 10^3/uL (150-450); RED BLOOD COUNT 3.85 10^6/uL (4.30-6.10); WHITE BLOOD COUNT 6.4 10^3/uL (4.0-10.0)
[2023-02-24] MEDS ORDERED: ACETAMINOPHEN 325 MG TAB PO ONE (18:20)
[2023-02-24 18:34] LABS: ALKALINE PHOSPHATASE 37 U/L (46-116); ALT/SGPT 27 U/L (7.0-40); AST/SGOT 23 U/L (<34); BILIRUBIN,DIRECT 0.1 MG/DL (<0.4); BILIRUBIN,TOTAL 0.3 MG/DL (0.3-1.2); BLOOD UREA NITROGEN 14 MG/DL (9-23); CARBON DIOXIDE LEVEL 25 MMOL/L (20-31); CHLORIDE LEVEL 90 MMOL/L (98-107); CK-MB VALUE MASS < 1.0 NG/ML (<3.6); CREATININE FOR GFR 0.83 MG/DL (0.70-1.30); GLOMERULAR FILTRATION RATE > 60.0 (>35); GLUCOSE, FASTING 147 MG/DL (74-106); POTASSIUM SERUM 3.7 MMOL/L (3.5-5.1); SODIUM LEVEL 128 MMOL/L (136-145); THYROID STIMULATING HORMONE 0.478 uIU/ML (0.55-4.78); THYROXINE (T4) 7.1 UG/DL (4.5-10.9); TOTAL PROTEIN 6.7 G/DL (5.7-8.2)
[2023-02-24] MEDS ORDERED: NS 1,000 ML IV ONE (18:35)
[2023-02-24 18:38] LABS: CPK CREATINE PHOSPHOKINASE 118 U/L (46-171); MB/CK RELATIVE INDEX 0.84 (< OR =4)
[2023-02-24 19:57] LABS: CK-MB VALUE MASS < 1.0 NG/ML (<3.6)
[2023-02-24 19:58] LABS: CPK CREATINE PHOSPHOKINASE 117 U/L (46-171); MB/CK RELATIVE INDEX 0.85 (< OR =4)
[2023-02-24 21:00] VITALS: BP 120/65; TEMP 99.4; O2SAT 95
[2023-02-24 21:19] VITALS: O2SAT 95
[2023-02-24] MEDS ORDERED: NIRM1TAB6 PO (21:48)
== END 2023-02-24 22:02 | disposition home or self-care (01) ==
LOC: EDBD 17:15 → M ED 17:15
DX: U07.1 COVID-19 (principal); R53.1 Weakness; R00.0 Tachycardia, unspecified; I44.0 Atrioventricular block, first degree; Z88.8 Allergy status to other drugs, medicaments and biological substances; Z79.810 Long term (current) use of selective estrogen receptor modulators (SERMs); Z79.899 Other long term (current) drug therapy

== ENCOUNTER → 2023-05-18 | Outpatient (REF) | payer MEDICARE ==
[~2023-05-18] MED LIST changes: +NIRM1TAB6 PO
[2023-05-18 13:43] LABS: BLOOD UREA NITROGEN 14 MG/DL (9-23); CALCIUM LEVEL 9.8 MG/DL (8.3-10.6); CARBON DIOXIDE LEVEL 30 MMOL/L (20-31); CHLORIDE LEVEL 96 MMOL/L (98-107); CREATININE FOR GFR 0.81 MG/DL (0.70-1.30); GLOMERULAR FILTRATION RATE > 60.0 (>35); GLUCOSE, FASTING 122 MG/DL (74-106); POTASSIUM SERUM 4.5 MMOL/L (3.5-5.1); SODIUM LEVEL 135 MMOL/L (136-145)
[2023-05-18 14:10] LABS: HEMOGLOBIN A1c 6.8 % (4.0-6.0)
== END ==
LOC: M SFHCADAM 07:44
PROVIDERS: ATTEND Family Medicine
DX: E11.9 Type 2 diabetes mellitus without complications (principal)

== ENCOUNTER → 2023-05-25 | Outpatient (REF) | payer MEDICARE ==
[2023-05-25 16:03] LABS: HEMATOCRIT 37.9 % (42.0-52.0); HEMOGLOBIN 12.7 g/dl (13.5-17.5); MEAN CORPUSCULAR HEMOGLOBIN 30.7 pg (27.0-33.0); MEAN CORPUSCULAR HGB CONC 33.5 g/dl (32.0-36.5); MEAN CORPUSCULAR VOLUME 91.5 fl (80.0-96.0); PLATELET COUNT, AUTOMATED 347 10^3/uL (150-450); RED BLOOD COUNT 4.14 10^6/uL (4.30-6.10); WHITE BLOOD COUNT 8.4 10^3/uL (4.0-10.0)
[2023-05-25 16:29] LABS: PERCENT SATURATION 16.7 % (19.7-50.0)
[2023-05-25 16:30] LABS: FERRITIN 88.9 NG/ML (10.5-307.3)
== END ==
LOC: M SFHCADAM 14:17
PROVIDERS: ATTEND Family Medicine
DX: D50.9 Iron deficiency anemia, unspecified (principal)

== ENCOUNTER → 2023-06-26 | Outpatient (CLI) | payer MEDICARE | LOC: M RAD 08:10 | PROVIDERS: ATTEND Pain Medicine Interventional Pain Medicine | DX: M54.16 Radiculopathy, lumbar region (principal); M51.26 Other intervertebral disc displacement, lumbar region ==

== ENCOUNTER → 2023-06-29 | Outpatient (CLI) | payer MEDICARE | LOC: M RAD 07:05 | PROVIDERS: ATTEND Orthopaedic Surgery | DX: M25.561 Pain in right knee (principal); Z96.653 Presence of artificial knee joint, bilateral; M25.562 Pain in left knee | CPT/HCPCS: 78315; A9503 ==

== ENCOUNTER → 2023-09-23 | Outpatient (REF) | payer MEDICARE | LOC: M SFHCADAM 07:43 | PROVIDERS: ATTEND Urology | DX: Z12.5 Encounter for screening for malignant neoplasm of prostate (principal) ==

== ENCOUNTER → 2023-10-12 | Outpatient (CLI) | payer MEDICARE | LOC: M PLAIMG 08:04 | PROVIDERS: ATTEND Pain Medicine Interventional Pain Medicine | DX: M47.812 Spondylosis without myelopathy or radiculopathy, cervical region (principal); M50.33 Other cervical disc degeneration, cervicothoracic region ==

== ENCOUNTER → 2023-11-30 | Outpatient (REF) | payer MEDICARE ==
[2023-11-30 13:42] LABS: HEMATOCRIT 36.6 % (42.0-52.0); HEMOGLOBIN 12.4 g/dl (13.5-17.5); MEAN CORPUSCULAR HEMOGLOBIN 31.5 pg (27.0-33.0); MEAN CORPUSCULAR HGB CONC 33.9 g/dl (32.0-36.5); MEAN CORPUSCULAR VOLUME 92.9 fl (80.0-96.0); PLATELET COUNT, AUTOMATED 278 10^3/uL (150-450); RED BLOOD COUNT 3.94 10^6/uL (4.30-6.10); WHITE BLOOD COUNT 5.7 10^3/uL (4.0-10.0)
[2023-11-30 13:47] LABS: TOTAL IRON BINDING CAPACITY 301 UG/DL (250-425)
[2023-11-30 13:48] LABS: ALBUMIN 3.8 G/DL (3.2-5.2); ALKALINE PHOSPHATASE 46 U/L (46-116); ALT/SGPT 38 U/L (7.0-40); AST/SGOT 21 U/L (<34); BILIRUBIN,TOTAL 0.2 MG/DL (0.3-1.2); BLOOD UREA NITROGEN 13 MG/DL (9-23); CALCIUM LEVEL 9.1 MG/DL (8.3-10.6); CARBON DIOXIDE LEVEL 30 MMOL/L (20-31); CHLORIDE LEVEL 100 MMOL/L (98-107); CHOLESTEROL LEVEL 119 MG/DL (<200); CHOLESTEROL RISK RATIO 3.08 (<5); CREATININE FOR GFR 0.92 MG/DL (0.70-1.30); GLOMERULAR FILTRATION RATE > 60.0 (>35); GLUCOSE, FASTING 161 MG/DL (74-106); HDL CHOLESTEROL 38.6 MG/DL (>40); IRON (FE) 61 UG/DL (65-175); LDL CHOLESTEROL 36.4 MG/DL (<100); NON-HDL-C 80.4 MG/DL; PERCENT SATURATION 20.3 % (19.7-50.0); POTASSIUM SERUM 4.9 MMOL/L (3.5-5.1); SODIUM LEVEL 133 MMOL/L (136-145); TOTAL PROTEIN 6.2 G/DL (5.7-8.2); TRIGLYCERIDES LEVEL 220 MG/DL (<150)
[2023-11-30 13:51] LABS: FERRITIN 63.2 NG/ML (10.5-307.3)
[2023-11-30 13:52] LABS: FREE T4 0.99 NG/DL (0.89-1.76)
[2023-11-30 14:10] LABS: HEMOGLOBIN A1c 7.4 % (4.0-6.0)
[2023-11-30 14:15] LABS: CREATININE, URINE 94.6 MG/DL; MAU/CREAT RATIO 6.3 MCG/MG (0.0-30.0)
== END ==
LOC: M SFHCADAM 08:27
PROVIDERS: ATTEND Family Medicine
DX: E11.9 Type 2 diabetes mellitus without complications (principal); E78.2 Mixed hyperlipidemia; D50.9 Iron deficiency anemia, unspecified

== ENCOUNTER → 2024-05-30 | Outpatient (REF) | payer MEDICARE ==
[2024-05-30 14:16] LABS: BLOOD UREA NITROGEN 15 MG/DL (9-23); CALCIUM LEVEL 9.6 MG/DL (8.3-10.6); CARBON DIOXIDE LEVEL 30 MMOL/L (20-31); CHLORIDE LEVEL 95 MMOL/L (98-107); CREATININE FOR GFR 0.81 MG/DL (0.70-1.30); GLOMERULAR FILTRATION RATE > 60.0 (>35); GLUCOSE, FASTING 131 MG/DL (74-106); POTASSIUM SERUM 4.2 MMOL/L (3.5-5.1); SODIUM LEVEL 133 MMOL/L (136-145)
== END ==
LOC: M SFHCADAM 07:46
PROVIDERS: ATTEND Family Medicine
DX: E11.9 Type 2 diabetes mellitus without complications (principal)

== ENCOUNTER → 2024-10-10 | Outpatient (CLI) | payer MEDICARE | LOC: M ADAMS 13:44 | PROVIDERS: ATTEND Family Medicine | DX: J98.11 Atelectasis (principal); R05.3 Chronic cough; J84.10 Pulmonary fibrosis, unspecified; K22.2 Esophageal obstruction ==

== ENCOUNTER → 2024-10-10 | Outpatient (REF) | payer MEDICARE | LOC: M SFHCADAM 07:56 | PROVIDERS: ATTEND Urology | DX: Z12.5 Encounter for screening for malignant neoplasm of prostate (principal) ==

== ENCOUNTER → 2024-11-07 | Outpatient (CLI) | payer MEDICARE | LOC: M RAD 10:08 | PROVIDERS: ATTEND Family Medicine | DX: R05.3 Chronic cough (principal); R91.1 Solitary pulmonary nodule; Z90.49 Acquired absence of other specified parts of digestive tract ==

== ENCOUNTER → 2025-05-22 | Outpatient (CLI) | payer MEDICARE ==
[2025-05-22 13:29] LABS: CALCIUM LEVEL 10.1 MG/DL (8.3-10.6); CARBON DIOXIDE LEVEL 29.0 MMOL/L (20-31); CHLORIDE LEVEL 92.0 MMOL/L (98-107); CREATININE FOR GFR 0.91 MG/DL (0.70-1.30); GLOMERULAR FILTRATION RATE 82.6 (>35); POTASSIUM SERUM 4.5 MMOL/L (3.5-5.1); SODIUM LEVEL 133.0 MMOL/L (136-145)
[2025-05-22 13:33] LABS: CREATININE, URINE 117.5 MG/DL
[2025-05-22 13:34] LABS: MALB URINE SIEMENS 56.0 MG/L; MAU/CREAT RATIO 47.6 MCG/MG (0.0-30.0)
[2025-05-22 13:47] LABS: ESTIMATED AVERAGE GLUCOSE 157.0 MG/DL (60-110)
== END ==
LOC: M LABDRWAD 07:56
PROVIDERS: ATTEND Family Medicine
DX: E11.9 Type 2 diabetes mellitus without complications (principal)

== ENCOUNTER → 2025-05-22 | Outpatient (REF) | payer MEDICARE | LOC: M SFHCADAM 08:48 | PROVIDERS: ATTEND Family Medicine | DX: E11.9 Type 2 diabetes mellitus without complications (principal) ==